=== PATIENT | female | born 1940 | race Caucasian/White ===

== ENCOUNTER 2025-06-04 15:01 | Inpatient (IN) | payer OTHER, MEDICARE, SELFPAY ==
[2025-06-04] VITALS (16 sets, daily range): BP systolic 85–133; BP diastolic 41–69; PULSE 66–101; RESP 12–36; TEMP 36.1–38.5; O2SAT 88–99; BMI 21.4; BMI 21.7
--- NOTE | 2025-06-04 15:20 | XR_ITS ---
Examination: AP chest single view Technique one AP portable upright chest single view Date and time: June 04 thousand 25, 1541 hours Comparison April 20, 2024 INDICATIONS: Sepsis protocol shortness of breath chest pain today. FINDINGS: Prominent CHF Moderate enlargement cardiac contour with vascular congestion and perihilar edema Consider superimposed pneumonia at the lung bases Stable position cardiac leads and dialysis catheter Prominent osteopenia IMPRESSION: Prominent CHF Suspicious for superimposed pneumonia at the lung bases
--- NOTE | 2025-06-04 15:37 | EDNOTE_ITS ---
<Statement entered by Shayy Orr MD - 06/05/25 15:00> I, Shayy Orr MD, have reviewed the history, exam, and assessment of the patient. I have evaluated the patient independently and agree with the plan of care documented by [ ]. All diagnostic studies were reviewed and discussed. I confirm the diagnosis as documented by the Resident. I was present during the Medical Decision Making for this patient. The patient's plan of care was created between myself and the Resident and consistent with our discussion of the patient's case. ED General RME/HPI General Chief complaint: Shortness of Breath/Dyspnea Stated complaint: SOB Time Seen by Provider: 06/04/25 15:09 Arrival date/time: 06/04/25 15:01 RME / HPI RME / HPI narrative: 85-year-old female with past medical history of ESRD on hemodialysis, DM2, CHF, hypertension, and asthma comes into the ED from [facility] due to complaints of shortness of breath for the past 4 days. Patient also spiked a fever at [facility] and she was transported to the ER via ambulance. On examination patient seems very dyspneic and was saturating around 96% on OxyMask. Patient was positive for COVID at [facility]. Otherwise she had no other complaints at this time. Denies any nausea, vomiting, abdominal pain, chest pain, or changes in bowel movement. Related Data Previous Rx's ?Medication ?Instructions ?Recorded benzonatate 100 mg capsule 100 mg PO TID PRN cough #10 caps 04/20/24 doxycycline monohydrate 100 mg 100 mg PO BID #10 caps 04/20/24 capsule Allergies Allergy/AdvReac Type Severity Reaction Status Date / Time pantoprazole (From Protonix) Allergy Verified 04/20/24 12:02 Sulfa (Sulfonamide Allergy Verified 04/20/24 12:02 Antibiotics) Review of Systems Review of Systems Systems Reviewed: All systems reviewed, normal except as documented Past Medical History Past Medical History Comments PMH COMMENT: PMH: ESRD on hemodialysis, DM2, CHF, hypertension, and asthma Social: denies smoking, drugs, alcohol Allergies: Sulfa and pantoprazole ED Exam Narrative Physical exam: Gen: A&O X 3 (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 External ears normal. No rhinorrhea. Moist mucous membranes. Neck: Supple, full range of motion, no observable masses, No meningeal sign. Lungs: moderate Respiratory distress, rales TARA. CV: RRR, no murmurs. Abdomen: Soft, nondistended, No rebound tenderness. MSK: No joint swelling, no redness, peripheral pulses presents, lumbar with no edema. Skin: No rashes, petechiae, lesions. Multiple ecchymosis throughout the body. Neuro: No focal neurological deficits appreciated, sensory and motor intact. Psych: Cooperative, appropriate mood and effect. Course Quality Measures none Orders Category Date Time Status Bedside COVID-19 Antigen Test NOW Care 06/04/25 15:20 Active Bedside Influenza A&B Antigen Test NOW Care 06/04/25 15:20 Completed COVID-19 Screening Questionnaire NOW Care 06/04/25 16:37 Active Community Resource Officer STAT Care 06/04/25 15:19 Active Continuous Pulse Oximetry STAT Care 06/04/25 15:19 Completed Decision to Admit X1 Care 06/04/25 16:37 Active EKG (ED ONLY) *Do not use* NOW Care 06/04/25 15:19 Completed In and Out Catheter X1PRN Care 06/04/25 15:19 Completed Insert IV NOW Care 06/04/25 15:19 Active NPO STAT Care 06/04/25 15:19 Active Strict Intake and Output Routine Care 06/04/25 15:19 Ordered EKG (ED Only) Stat Exams 06/04/25 15:19 Ordered XR chest 1V SEPSIS PROTOCOL Stat Exams 06/04/25 15:20 Completed Arterial Blood Gas Stat Lab 06/04/25 15:40 Completed B-Type Natriuretic Peptide Stat Lab 06/04/25 15:48 Completed Blood Culture (Lab) Stat Lab 06/04/25 15:40 Received CBC Stat Lab 06/04/25 15:48 Completed Comprehensive Metabolic Panel Stat Lab 06/04/25 15:48 Completed Drug Screen,Urine Stat Lab 06/04/25 16:10 Received LDH (Lactate Dehydrogenase) Stat Lab 06/04/25 15:48 Completed Lactate (Lactic Acid) Stat Lab 06/04/25 15:48 Completed Lipase Stat Lab 06/04/25 15:48 Completed Magnesium Stat Lab 06/04/25 15:48 Completed Partial Thromboplastin Time Stat Lab 06/04/25 15:48 Completed Phosphorous Stat Lab 06/04/25 15:48 Completed Procalcitonin Stat Lab 06/04/25 15:48 Completed Prothrombin Time with INR Stat Lab 06/04/25 15:48 Completed Troponin I Stat Lab 06/04/25 15:48 Completed Urinalysis Stat Lab 06/04/25 16:10 Completed Urine Culture Stat Lab 06/04/25 16:20 Received Acetaminophen Ivpb [Ofirmev Inj] Med 06/04/25 16:28 Discontinued 1,000 mg in 100 ml IV X1 Albuterol/Ipratr Rt Chinyere [Duoneb Rt Chinyere] Med 06/04/25 16:34 Discontinued 3 ml INH X1 ONE Azithromycin Inj [Zithromax Inj] 500 mg Med 06/04/25 16:28 Active Sodium Chloride 0.9% 250 ml [Ns] 250 ml IV X1 Magnesium Sulfate 2 GM Ivpb [Magnesium Sulfate Ivpb] Med 06/04/25 16:34 Active 2 gm in 50 ml IV X1 Piper/Tazo 3.375 gm Premix [Zosyn] Med 06/04/25 15:19 Discontinued 3.375 gm in 50 ml IV X1 BiPAP / CPAP NOW RT 06/04/25 16:27 Active Oxygen Delivery NOW RT 06/04/25 15:19 Active Vital Signs Vital signs: Vital Signs Temperature 100.2 F 06/04/25 15:02 Pulse Rate 66 06/04/25 15:02 Respiratory Rate 15 06/04/25 15:02 Blood Pressure 133/69 H 06/04/25 15:02 Pulse Oximetry (%) 96 06/04/25 15:02 Oxygen Delivery Method Oxy Mask 06/04/25 15:02 Oxygen Flow Rate 15 06/04/25 15:02 Discharge Plan Plan Patient Disposition: Admit Acute Care w/in Hospital Prescriptions/Referrals Prescriptions/Med Rec: No Action benzonatate 100 mg capsule 100 mg PO TID PRN (Reason: cough) Qty: 10 0RF doxycycline monohydrate 100 mg capsule 100 mg PO BID Qty: 10 0RF Referrals: No Primary/Family,Physician [Primary Care Provider] - In 1 week Problem List Clinical Impression: Community acquired pneumonia, COVID-19, Influenza, Hypoxia Patient/Caregiver Discharge Instructions Print Language: [place] Stand Alone Forms: Agnieszka Award Info., Patient Portal Info Letter MDM Narrative MDM hospital course: Patient was seen and assessed by myself upon arrival in the ambulance bay and then the patient's room. Sepsis alert was called while patient as well as on arrival. 1540: Diagnostic lab and imaging were ordered. Along with IV antibiotics (Zosyn). Refrain from ordering IV fluids given that patient appeared to be fluid overloaded and on bedside ultrasound inferior vena cava was noncompressible. 1627: Ordered BiPAP as patient was more dyspneic. And other azithromycin as well with DuoNebs and Tylenol for fever. 1637: Called IM team for admission, will look at the patient for admission. Case disclosed with Attending Dr. Kirby Champagne PGY2 Disclaimer: Even though this this note was dictated by speech recognition and even though it was carefully revised there may still be minor errors in medical typist due to voice recognition software. Medication Administration(s) Medication Administration History Azithromycin 500 mg/ Sodium (Chloride) 250 mls @ 250 mls/hr IV X1 ONE Stop: 06/04/25 17:27 Magnesium Sulfate (Magnesium Sulfate Ivpb) 2 gm in 50 mls @ 25 mls/hr IV X1 ONE Stop: 06/04/25 18:33 Discontinued Medications Albuterol/Ipratropium (Albuterol/Ipratropium (Duoneb) Rt Chinyere 3 Ml Nebu) 3 ml INH X1 ONE Stop: 06/04/25 16:35 Last Admin: 06/04/25 17:00 Dose: 3 ml Documented By: MINA Piperacillin/Tazobactam/Dextrose (Zosyn) 3.375 gm in 50 mls @ 100 mls/hr IV X1 ONE Stop: 06/04/25 15:48 Last Admin: 06/04/25 16:14 Dose: 100 mls/hr Documented By: TM Acetaminophen (Ofirmev Inj) 1,000 mg in 100 mls @ 250 mls/hr IV X1 ONE Stop: 06/04/25 16:51
[2025-06-04 15:44] LABS: Base Excess 5 (-3-3); HCO3 31 mEq/L (20-26); Inspired O2, VO2 Liters 8 L/min; O2 Saturation 100 % (91-98); PCO2 52 mmHg (32.0-48.0); PO2 148 mmHg (83-108); pH, Arterial 7.38 (7.35-7.45)
[2025-06-04 15:45] LABS: Puncture Site Right Radial
[2025-06-04 15:46] LABS: Allen Test Performed/OK
[2025-06-04 16:02] LABS: Lactate (Lactic Acid) 1.4 mMol/L (0.4-2.0)
[2025-06-04] MEDS: PIPER/TAZO 3.375 GM PREMIX 3.375 GM/50 ML BAG IV (16:14)
[2025-06-04 16:27] LABS: Basophils # (Auto) 0.0 Thou/mm3 (0.0-0.2); Basophils % (Auto) 1 % (0-2.5); Eosinophils # (Auto) 0.0 Thou/mm3 (0.0-0.5); Eosinophils % (Auto) 0 % (0-10); Hematocrit 34.4 % (36.0-46.0); Hemoglobin 10.6 g/dL (12.0-16.0); INR 1.2 (0.9-1.3); Immature Granulocytes Auto 0.02 Thou/mm3 (0.00-0.00); Lymphocytes # (Auto) 0.4 Thou/mm3 (1.0-4.8); Lymphocytes % (Auto) 8 % (10-50); Mean Corpuscular HGB Conc 30.8 g/dl (31.0-37.0); Mean Corpuscular Hemoglobin 33.7 pg (25.0-35.0); Mean Corpuscular Volume 109 fL (80-100); Monocytes # (Auto) 0.4 Thou/mm3 (0.0-0.8); Monocytes % (Auto) 8 % (0-12); Neutrophils # (Auto) 4.7 Thou/mm3 (1.8-7.7); Neutrophils % (Auto) 84 % (37-80); Nucleated Red Blood Cell # 0.00 Thou/mm3 (0.00-0.00); Nucleated Red Blood Cell % 0 /100 WBC (0); Partial Thromboplastin Time 32.4 Seconds (22.0-36.0); Platelet Count 113 Thou/mm3 (140-440); Prothrombin Time 12.5 Seconds (9.0-12.2); RDW Standard Deviation 66.0 fL (36.4-46.3); Red Blood Count 3.15 Miln/mm3 (4.00-5.20); White Blood Count 5.6 Thou/mm3 (3.6-11.0)
[2025-06-04 16:40] LABS: Alanine Aminotransferase 20 U/L (10-49); Albumin, Serum 3.6 gm/dL (3.4-4.8); Albumin/Globulin Ratio 1.7 (1.2-2.2); Alkaline Phosphatase 95 U/L (46-116); Anion Gap 10 (7-16); Aspartate Amino Transferase 39 U/L (0-34); BUN/Creatinine Ratio 11 Ratio (12-20); Bilirubin,Total 0.7 mg/dL (0.3-1.2); Blood Urea Nitrogen 42 mg/dL (9-23); Calcium 9.4 mg/dL (8.3-10.6); Calcium (Corrected) 9.7 mg/dL (8.5-10.1); Carbon Dioxide 30.1 mMol/L (20.0-31.0); Chloride 97 mMol/L (98-107); Creatinine (Component) 4.0 mg/dL (0.6-1.3); Estimated Creatinine Clearance 7.5 mL/min (>60); Globulin 2.1 gm/dL (2.3-3.5); Glucose 143 mg/dL (74-106); LDH (Lactate Dehydrogenase) 222 U/L (120-246); Lipase 39 U/L (12-53); Magnesium 1.8 mg/dL (1.6-2.6); Osmolality,Calculated 286 (275-295); Phosphorous 3.8 mg/dL (2.4-5.1); Potassium 5.2 mMol/L (3.4-5.1); Procalcitonin 1.29 ng/ml (0.0-0.49); Sodium 137 mMol/L (136-145); Total Protein 5.7 gm/dL (5.7-8.2); eGFR 11 See Note
[2025-06-04 16:51] LABS: Collection Type, Urine Clean Catch
[2025-06-04] MEDS: ALBUTEROL/IPRATROPIUM (Duoneb) RT SOL 3 ML NEBU INH (17:00)
[2025-06-04 17:01] LABS: Troponin I 0.293 ng/mL (0.0-0.045)
[2025-06-04 17:04] LABS: Amorphous Crystals,Urine Present (Absent); Bacteria,Urine 4+; Bilirubin,Urine Negative (Negative); Blood,Urine Negative (Negative); Color,Urine Yellow (Lt Yel-Yel); Glucose, Urine Negative (Negative); Hyaline Casts,Urine < 1 /hpf (0-1); Ketones,Urine Negative (Negative); Leukocyte Esterase,Urine Positive (Negative); Nitrite,Urine Negative (Negative); PH,Urine 5.5 (5.0-7.0); Protein,Urine 2+ (Neg - Trace); RBC,Urine 3 /hpf (0-3); Specific Gravity,Urine 1.017 (1.001-1.035); Squamous Epithelial Cell,Urine 15 /hpf (0-5); Urobilinogen,Urine Negative mg/dL (0.0-1.0); WBC,Urine 5 /hpf (0-5)
[2025-06-04 17:06] LABS: Clarity,Urine Hazy (Clear/Hazy)
[2025-06-04 17:21] LABS: B-Type Natriuretic Peptide > 3280 pg/mL (0-100)
[2025-06-04 17:41] LABS: Amphetamine/Methamp Scrn,U Negative (Negative); Barbiturate Screen,Urine Negative (Negative); Benzodiazepines Screen,Urine Negative (Negative); Benzoylecgonine Screen, Ur Negative (Negative); Fentanyl Screen,Urine Negative (Negative); Opiate Screen,Urine Negative (Negative); THC Screen,Urine Negative (Negative)
[2025-06-04] MEDS: ACETAMINOPHEN IVPB 1,000 MG/100 ML VIAL 250 MG IV (17:41)
[2025-06-04] MEDS: Magnesium Sulfate 2 GM Ivpb 2 GM/50 ML BAG IV (17:44)
[2025-06-04] MEDS: AZITHROMYCIN INJ 500 MG in SODIUM CHLORIDE 0.9% 250 ML 250 ML 250 MG IV (17:46)
[2025-06-04] MEDS: HEPARIN SOD INJ 5000 UNIT/ML VIAL SC (18:06)
--- NOTE | 2025-06-04 18:50 | PC.NURSE ---
Patient admitted to Telemetry room 263 from ED via [facility]. Patient is alert and oriented. Settled into bed with staff assist. youth nutritional monitor established, paced rhythm on the monitor. Full assessment completed see documentation. Patient is short of breath but no distress. Is on a Bipap at present and is tolerating well. Call brush within reach and bed alarm for safety. Will monitor further.
--- NOTE | 2025-06-04 19:02 | PC.NURSE ---
pt was transported to floor connected to tele and bi-pap, by this RN, jeyson johnson, and rt, without incident. once on floor care was transfered to floor staff.
--- NOTE | 2025-06-04 19:15 | XR_ITS ---
Examination: AP chest single view Technique one AP portable semiupright chest single view Date and time: June 04 70,025, 1939 hours Comparison June 04, 2025 1541 hours INDICATIONS: Abnormal breath sounds on auscultation today. FINDINGS: Prominent CHF Enlarged cardiac contour with pulmonary vascular congestion and perihilar edema Cardiac leads dialysis catheter satisfactory position IMPRESSION: Prominent CHF Consider superimposed pneumonia at the lung bases
--- NOTE | 2025-06-04 19:39 | ESHP_ITS ---
<Statement entered by Suraj Bergman MD - 06/04/25 22:41> Patient was examined and case was reviewed with team including attending physician. Note reviewed, I agree with most of its contents and agree with the patient's care as documented by Dr. Zhou 85 y/o female with PMHx of Hypertension, CAD s/p CABG, ESRD on HD, DM who was bought to the ED from [facility] due to shortness of breath with productive phlegm. Onset of symptoms seems to be around 4 days with some fevers. COVID test done at the facility found to be positive, however here negative, PCR ordered. Patient also tested positive for Influenza A + B. Will start patient on Abx therapy and tamiflu for Sepsis secondary to Influenza PNA with superimposed bacterial PNA. Additionally patient missed HD session and is fluid overloaded on examination. Will start patient on IV diuresis, Nephrology production editor was consulted for continued Hemodialysis schedule. Home meds resumed as tolerated. Case discussed with my attending Dr. Jone Bergman MD PGY-2 Documentation for date of: 06/04/25 HPI History of Present Illness History of present illness: Ms. Baeza is 85 y/o female with PMH of CHF, insulin-dependent DM, CAD s/p CABG, ESRD on HD MWF, hypertension and asthma who presented to the ED on 06/04 for progressive shortness of breath and productive cough x4 days. Per ED note, she had a fever and was COVID positive prior to coming to the ED by ambulance. She denies hemoptysis, chest pain/pressure, headache, acute changes in vision, leg swelling, N/V, abdominal pain, or changes in bowel movements. She missed her dialysis today. Patient was hospitalized for pneumonia about 1 month ago at [facility]. Patient did not know which abx she was given. She has been staying at [facility] since then. Before that hospitalization she was staying with her son, Karthik. She has an ED visit on record at [facility] 04/20/24 for productive cough aand was sent home with abx coverage for CAP with Augmentin and Doxycycline. ED course: Dyspneic, moderate respiratory distress, rales b/l. Febrile T max 101.3. Tachypneic to 30s. Started OxyMask 15L, spO2 96%. Bedside IVC was concompressible. Sepsis alert was called. IVF NOT given as patient has hx of CHF, appeared to be fluid overloaded (IVC non-collapsible, elevated BNP, and imaging findings of vascular congestion and perihilar edema). Labs significant for macrocytic anemia (hgb 10.6, HCT 34.4, MCV 109), thrombocytopenia (plt 113). NO leukocytosis. PT 12.5 high. INR and PTT WNL. ABG pH 7.38 (CO2 52, O2 148, bicarb 31). Potassium 5.2, Cl 97, BUN 42, Cr 4, AST 39., Troponin 0.293, BNP >3280, procal high 1.29. Lactic acid WNL 1.4. UA 2+ protein, 15 squamous epithelial cells, amorphous crystals, 4+ bacteria, + LE, negative nitrite. UDS negative. Bedside influenza A and B positive. Bedside COVID negative. CXR x2 showed moderate enlargement cardiac contour with vascular congestion and perihilar edema, superimposed PNA at b/l lung bases, prominent osteopenia. C/W CHF, PNA Started BiPAP, given Mag sulfate, Zosyn x1, Azitrhomycin, DuoNebs, and Tylenol. PMHx: CHF, insulin-dependent DM, CAD s/p CABG, ESRD on HD MWF, hypertension, asthma Allergies: Sulfa, pantoprazole Home meds: Midodrine 5 mg TID (hold if sBP > 100) Atorvastatin 20 mg QHS Sevelamir 800 mg TID (with meals) Mirtazepine 15 mg QHS (for sleep) Lasiz 20 mg QD Renal vitamin QD Pramipexole 0.25 mg QHS (for RLS) Vitamin D 1000U QD ASA 81 mg QD Insulin Aspart bolus w/ meals PRN albuterol nebulizer PRN Tylenol PRN Doc-senna SgHx: CABG, Cholecystectomy (at least 5 years ago), tonsillectomy (as a child), Left hip replacement SHx: Denies smoking, EtOH, or recreational drug use current or hx. [facility] (for the past ~1 month), used to live with her sonKarthik Patient has Physician Orders for Life-Sustaining Treatment on file. States DNR. When discussing code status today, patient reports that she is ok with CPR, does not want intubation. Code status documented/ordered as limited code: ok to do CPR, DNI. Tried to call sonKarthik ([phone]). Did not get a response. Will try again tomorrow. Review of Systems Review of Systems Narrative Review of Systems: 14 point ROS negative other than HPI Exam Vital Signs Temp Pulse Resp BP Pulse Ox O2 Del Method O2 Flow Rate 98.8 F 78 12 110/41 L 98 BiPAP 5 06/04/25 18:03 06/04/25 19:23 06/04/25 19:23 06/04/25 18:03 06/04/25 19:23 06/04/25 18:03 06/04/25 17:02 FiO2 40 06/04/25 17:57 Narrative Exam General: Elderly female, appears stated age, no acute distress Eye: PERRL, EOMI, normal conjunctiva, no scleral icterus HENT: Normocephalic, atraumatic, normal hearing, moist oral mucosa Neck: Supple, non-tender, no JVD, no lymphadenopathy Lungs: B/L rales, on OxyMask, symmetric chest rise, no use of accessory muscles Heart: Normal S1 and S2, no S3 or S4 appreciated. Normal rate and regular rhythm, no murmurs, rubs gallops, or edema. Peripheral pulses intact bilaterally, capillary refill brisk distally. No peripheral edema noted. Abdomen: Soft, non-tender, non-distended, normal bowel sounds. No guarding or rebound tenderness. Musculoskeletal: Normal range of motion and strength, no tenderness or swelling Skin: Skin is warm, dry, no rashes or lesions. Neurologic: Alert, awake and oriented x3. CN II-XII grossly intact. No focal neuro deficits. Psychiatric: Cooperative, appropriate mood and affect Results: Labs 06/05/25 05:37 06/05/25 05:37 Labs: Short CBC 06/04/25 Range/Units 15:48 WBC 5.6 (3.6-11.0) Thou/mm3 Hgb 10.6 L (12.0-16.0) g/dL Hct 34.4 L (36.0-46.0) % Plt Count 113 L (140-440) Thou/mm3 BMP 06/04/25 15:48 Sodium 137 Potassium 5.2 H Chloride 97 L Carbon Dioxide 30.1 BUN 42 H Creatinine 4.0 H Glucose 143 H Calcium 9.4 Cardiac Enzymes 06/04/25 Range/Units 15:48 Troponin I 0.293 H* (0.0-0.045) ng/mL Liver Function 06/04/25 Range/Units 15:48 Total Bilirubin 0.7 (0.3-1.2) mg/dL AST 39 H (0-34) U/L ALT 20 (10-49) U/L Alkaline Phosphatase 95 (46-116) U/L Albumin 3.6 (3.4-4.8) gm/dL Urine 06/04/25 Range/Units 16:10 Urine Color Yellow (Lt Yel-Yel) Urine Clarity Hazy (Clear/Hazy) Urine pH 5.5 (5.0-7.0) Ur Specific Carey 1.017 (1.001-1.035) Urine Protein 2+ A (Neg - Trace) Urine Glucose (UA) Negative (Negative) ABG Interpretation ABG results: 06/04/25 15:40 ABG pH 7.38 ABG pCO2 52 H ABG pO2 148 H ABG HCO3 31 H ABG O2 Saturation 100 H ABG Base Excess 5 H Quality Measures Quality Measures none Advance care planning discussed with:: patient Medications Home Medications and Allergies Home Medications ?Medication ?Instructions ?Recorded ?Confirmed ?Type acetaminophen 325 mg tablet 650 mg PO Q6H PRN pain (sc iglesia 06/04/25 06/04/25 History (Tylenol) score 4-6) albuterol sulfate 2.5 mg/3 mL 2.5 mg inhalation Q6H KS N 06/04/25 06/04/25 History (0.083 %) solution for nebulization shortness of breat h or wheezing aspirin 81 mg capsule 81 mg PO QDAY 06/04/2506/04 History atorvastatin 20 mg tablet 20 mg PO HS 06/04/25/03/31 5 History bisacodyl 10 mg rectal suppository 10 mg KS QDAY PRN c onstipation 06/04/25 06/04/25 History (Dulcolax (bisacodyl)) cholecalciferol (vitamin D3) 25 1,000 unit PO QDAY 04/2306/04/25 History mcg (1,000 unit) capsule diphenhydramine 25 1 tab PO HS PRN insomnia 04/2306/04/25 History mg-acetaminophen 500 mg tablet (Pain and Sleep) furosemide 20 mg tablet 20 mg PO DAILY 06/04/2504/23 History magnesium hydroxide 400 mg/5 mL 30 ml PO Q72H PRN cons tipation 06/04/25 06/04/25 History oral suspension (Milk of Magnesia) midodrine 5 mg tablet 5 mg PO TID 06/04/25 5 History mirtazapine 15 mg tablet (Remeron) 15 mg PO HS 5 06/04/25 History polyethylene glycol 3350 17 gram 17 g PO QDAY 06/04/25 06/04/25 History oral powder packet (Miralax) pramipexole 0.25 mg tablet 0.25 mg PO HS 06/04/2504/23 History sevelamer carbonate 800 mg tablet 800 mg PO TIDWMEAL 0 06/04/25 06/04/25 History sodium phosphates 19 gram-7 118 ml KS Q72H PRN constip ation 06/04/25 06/04/25 History gram/118 mL enema vitamin B complex-vitamin C-folic 1 tab PO QDAY 06/04/25 History acid 0.8 mg tablet Allergies Allergy/AdvReac Type Severity Reaction Status Date / Time pantoprazole (From Protonix) Allergy Verified 04/20/24 12:02 Sulfa (Sulfonamide Allergy Verified 04/20/24 12:02 Antibiotics) Visit Medications Acetaminophen (Acetaminophen 325 Mg Tablet) 650 mg PO Q6H PRN PRN Reason: Fever >101.5 Stop: 07/04/25 17:30 Acetaminophen (Acetaminophen 325 Mg Tablet) 650 mg PO Q6H PRN PRN Reason: PAIN SCALE 1-3 (mild Stop: 07/04/25 17:30 Hydrocodone Bitart/Acetaminophen (Hydrocodone/Apap 5/325 Tablet) 1 tab PO Q4HR PRN PRN Reason: PAIN SCALE 4-6 (Moderate Stop: 06/09/25 17:30 Dextrose (Dextrose 50%-Water Inj 50 Ml Syringe) 25 ml IV Q15MIN PRN PRN Reason: BG 50-70 responsive npo pt Stop: 07/04/25 19:36 Dextrose (Dextrose 50%-Water Inj 50 Ml Syringe) 50 ml IV Q15MIN PRN PRN Reason: BG <50 OR BG <70 & pt unresponsive Stop: 07/04/25 19:36 Docusate Sodium (Docusate Sod 100 Mg Capsule) 100 mg PO QDAY PRN; Protocol PRN Reason: CONSTIPATION Stop: 07/04/25 17:30 Glucagon (Glucagon Inj 1 Mg Vial) 1 mg IM Q15MIN PRN PRN Reason: BG <70, and no IV access Heparin Sodium (Porcine) (Heparin Sod Inj 5000 Unit/Ml Vial) 5,000 unit SC Q12HR GILLIAN Stop: 06/18/25 17:44 Last Admin: 06/04/25 18:06 Dose: 5,000 unit Ceftriaxone Sodium/Dextrose (Rocephin/D5w 1gm Iv Premix) 1 gm in 50 mls @ 100 mls/hr IV QDAY GILLIAN Stop: 06/11/25 18:07 Azithromycin 500 mg/ Sodium (Chloride) 250 mls @ 250 mls/hr IV QDAY@2100 [facility] Stop: 06/11/25 20:59 Insulin Human Lispro (Insulin Lispro (Admelog) 1 Unit/0.01 Ml Unit) 0 unit SC Q6HR GILLIAN; Protocol Stop: 07/05/25 00:00 Ondansetron HCl (Ondansetron Inj 2 Mg/Ml Inj 2 Ml) 4 mg IVP Q6H PRN; Protocol PRN Reason: NAUSEA OR VOMITING Stop: 07/04/25 17:30 Oseltamivir Phosphate (Oseltamivir 6 Mg/Ml) 30 mg PO DAILY GILLIAN Stop: 06/11/25 18:44 Discontinued Medications Albuterol/Ipratropium (Albuterol/Ipratropium (Duoneb) Rt Chinyere 3 Ml Nebu) 3 ml INH X1 ONE Stop: 06/04/25 16:35 Last Admin: 06/04/25 17:00 Dose: 3 ml Dexamethasone Sodium Phosphate (Dexamethasone Sod Phos Inj 10 Mg/Ml Vial) 6 mg IVP DAILY GILLIAN Stop: 07/04/25 18:14 Dexamethasone Sodium Phosphate (Dexamethasone Sod Phos Inj 10 Mg/Ml Vial) 6 mg IVP DAILY [facility] Stop: 06/14/25 18:29 Piperacillin/Tazobactam/Dextrose (Zosyn) 3.375 gm in 50 mls @ 100 mls/hr IV X1 ONE Stop: 06/04/25 15:48 Last Infusion: 06/04/25 16:44 Dose: Infused Acetaminophen (Ofirmev Inj) 1,000 mg in 100 mls @ 250 mls/hr IV X1 ONE Stop: 06/04/25 16:51 Last Infusion: 06/04/25 18:06 Dose: Infused Azithromycin 500 mg/ Sodium (Chloride) 250 mls @ 250 mls/hr IV X1 ONE Stop: 06/04/25 17:27 Last Admin: 06/04/25 17:46 Dose: 250 mls/hr Magnesium Sulfate (Magnesium Sulfate Ivpb) 2 gm in 50 mls @ 25 mls/hr IV X1 ONE Stop: 06/04/25 18:33 Last Admin: 06/04/25 17:44 Dose: 25 mls/hr Piperacillin/Tazobactam/Dextrose (Zosyn) 3.375 gm in 50 mls @ 12.5 mls/hr IV Q12HR GILLIAN Stop: 06/11/25 21:59 Azithromycin 500 mg/ Sodium (Chloride) 250 mls @ 250 mls/hr IV QDAY@2100 [facility] Stop: 06/11/25 20:59 Remdesivir 100 mg/ Sodium (Chloride) 100 mls @ 100 mls/hr IV Q24H NR; Protocol Stop: 06/08/25 14:59 Assessment & Plan Plan # Acute hypoxic respiratory failure Initial sx of progressive shortness of breath, hypoxic, started on OxyMask, now on BiPAP Most likely 2/2 acute CHF exacerbation vs PNA Plan: - BiPAP - Lasix as below, abx as below #Sepsis Temp > 100.4 (Tmax 101.3), HR > 90 (max 93), RR > 20 (max 35) + suspected source of infection (PNA, UTI) Fluids NOT given as pt appeared to be fluid overloaded (IVC non-collapsible, elevated BNP, and imaging findings of vascular congestion and perihilar edema), has ESRD and missed HD 06/04 Plan: - Tylenol PRN for fever - Pending blood cx x2 - See below for abx #Community-acquired pneumonia Patient was COVID positive at [facility], bedside COVID negative Influenza A and B positive PNA at b/l lung bases seen on CXR Given DuoNeb, Zosyn x1, Azitrhomycin x1 in ED Plan: - Azitrhromycin 500 mg IV QD x 3 days (06/04 - 06/06), Ceftriaxone 1 g IV QD x 5 days (06/04 - 06/08), Tamiflu 30 mg QD x 5 days (06/04 - 06/08) - Pending COVID PCR #Acute CHF exacerbation Vascular congestion and peihilar edema seen on CXR BNP >3280 Plan: - Lasix 40 mg IV QD - Pending TTE - Strict I&Os - Daily weights - Replete electrolytes (keep Mg >2, K >4) #ESRD on HD MWF Missed dialysis 06/04 On admit: BUN 42, Cr 4 [employer]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 Dumont Plan: - Continued home Sevelamer 80 mg TID w/ meals - Consulted nephrology production editor #CAD s/p CABG Denies chest pain/pressure Plan: - Continue home ASA 81 mg daily, atorvastatin 20 mg QHS - Pending lipid panel #Troponinemia Denies chest pain/pressure Trop 0.293 Most likely 2/2 sepsis Plan: - Trend troponin #UTI Denies urinary sx Plan: - Ceftriaxone 1 g IV QD x 5 days (06/04 - 06/08) - Pending urine cx #Insulin-dependent DM Initial BG 143 Plan: - SSI - Pending A1C #Restless leg syndrome Plan: - Held home pramipexole i/s/o CHF / fluid overload Dispo: PNA and CHF tx Diet: Cardiac Bowel Reg: Docusate VTE ppx: Heparin 5000U subQ BID, GI ppx: none Code status: ok to do CPR, DNI Plan discussed with Dr. Winter and Dr. Jone Zhou MD PGY1 Attending Provider Attestation/Addendum I have examined the patient, reviewed labs and imaging findings, discussed the case with the resident(s), and reviewed entered orders. I agree with the plan of care as outlined in this note, with these additional summaries/recommendations: After examination of the patient and review of the clinical data, I feel that this patient needs admission to the hospital for further treatment and evaluation. Patient is a 85-year-old female with a medical history of ESRD on HD, diabetes mellitus type 2, CHF, asthma, hypotension, hyperlipidemia, and insomnia presents to [facility] emergency department on 06/04/2025 with chief complaint of progressively worsening shortness of breath over the last 4 days. Patient seen at bedside. Patient diagnosed with acute hypoxic respiratory failure and sepsis which is multifactorial in nature. Patient has COVID pneumonitis, start remdesivir and Decadron. Influenza A and B+. Suspected to have community-acquired pneumonia as well from most likely gram-negative rods. Start IV antibiotics. Continue supplemental oxygen and wean as tolerated. Patient diagnosed with sepsis with endorgan damage elevated troponin. She did not receive the full 30 cc/kg given her history of CHF and ESRD. Chest x-ray shows moderate vascular congestion with perihilar edema. If respiratory status worsens we may need to try a trial of BiPAP. ABG reviewed. Procalcitonin elevated. Consult nephrology for ESRD for inpatient hemodialysis. Avoid nephrotoxic agents and renally dose medications. Patient is DNR. Prognosis is guarded at this time. Troponins elevated and we will trend every 8 hours until downtrend. Most likely secondary to demand ischemia in the setting of sepsis and hypoxic respiratory failure. Resume home medications. Patient has history of hypotension and appears to take midodrine at times and will institute if needed. Patient updated on the plan and agreement. Please see residents note for additional details and management. Dr. Jone MD
[2025-06-04] MEDS: cefTRIAXone/D5w 1gm IV premix 1 GM/50 ML BAG IV (19:57)
[2025-06-04] MEDS: ASPIRIN EC 81 MG TABEC PO (21:26)
[2025-06-04] MEDS: FUROSEMIDE INJ 10 MG/ML 4ML VIAL 40 MG IVP (21:26)
[2025-06-04] MEDS: MIDODRINE 5 MG TABLET PO (21:30)
--- NOTE | 2025-06-04 23:23 | PD.RESEVENT ---
Documentation for date of: 06/04/25 Event Note Event Note: Rapid response was called at 19:00 due to concern for hypotension and respiratory distress. The initial blood pressure reading from the in room automated monitor was reportedly low (approximately 79/58), raising concern. However, upon rechecking the blood pressure using a more accurate external monitor, the values were within normal limits. The patient remained stable throughout the episode, and no acute intervention was required. It was determined that the initial low reading was likely due to inaccurate measurement from the less reliable bedside monitor. Chest x-ray was ordered to further assess for any underlying respiratory pathology. Patient did not display signs of COVID-19, and no additional concerns were noted during reassessment. Assessment: False/ inacurrate hypotension reading on initial monitor; patient stable and denies any symptoms. Plan: ? Continue to monitor vitals closely. ? Chest x-ray pending. ? No further intervention required at this time. ----- Plan discussed with attending physician Dr. Marimar Lopez MD PGY-1 Internal Medicine
[2025-06-05] VITALS (29 sets, daily range): BP systolic 86–137; BP diastolic 42–84; PULSE 60–106; RESP 14–27; TEMP 36.3–37.2; O2SAT 91–99; BMI 21.6
[2025-06-05] MEDS: MIDODRINE 5 MG TABLET PO ×3 (05:41→21:43)
[2025-06-05 06:22] LABS: Basophils # (Auto) 0.0 Thou/mm3 (0.0-0.2); Basophils % (Auto) 1 % (0-2.5); Eosinophils # (Auto) 0.0 Thou/mm3 (0.0-0.5); Eosinophils % (Auto) 0 % (0-10); Hematocrit 33.6 % (36.0-46.0); Hemoglobin 10.1 g/dL (12.0-16.0); Immature Granulocytes Auto 0.02 Thou/mm3 (0.00-0.00); Lymphocytes # (Auto) 0.6 Thou/mm3 (1.0-4.8); Lymphocytes % (Auto) 16 % (10-50); Mean Corpuscular HGB Conc 30.1 g/dl (31.0-37.0); Mean Corpuscular Hemoglobin 33.0 pg (25.0-35.0); Mean Corpuscular Volume 110 fL (80-100); Monocytes # (Auto) 0.4 Thou/mm3 (0.0-0.8); Monocytes % (Auto) 12 % (0-12); Neutrophils # (Auto) 2.7 Thou/mm3 (1.8-7.7); Neutrophils % (Auto) 71 % (37-80); Nucleated Red Blood Cell # 0.00 Thou/mm3 (0.00-0.00); Nucleated Red Blood Cell % 0 /100 WBC (0); Platelet Count 98 Thou/mm3 (140-440); RDW Standard Deviation 66.5 fL (36.4-46.3); Red Blood Count 3.06 Miln/mm3 (4.00-5.20); White Blood Count 3.8 Thou/mm3 (3.6-11.0)
[2025-06-05 06:57] LABS: Alanine Aminotransferase 18 U/L (10-49); Albumin, Serum 3.2 gm/dL (3.4-4.8); Albumin/Globulin Ratio 1.6 (1.2-2.2); Alkaline Phosphatase 83 U/L (46-116); Anion Gap 10 (7-16); Aspartate Amino Transferase 39 U/L (0-34); BUN/Creatinine Ratio 11 Ratio (12-20); Bilirubin,Total 0.5 mg/dL (0.3-1.2); Blood Urea Nitrogen 47 mg/dL (9-23); Calcium 9.3 mg/dL (8.3-10.6); Calcium (Corrected) 9.9 mg/dL (8.5-10.1); Carbon Dioxide 29.0 mMol/L (20.0-31.0); Cardiac Risk Estimate 1.7 RATIO (3.7-5.6); Chloride 97 mMol/L (98-107); Cholesterol 69 mg/dL (132-200); Creatinine (Component) 4.4 mg/dL (0.6-1.3); Estimated Creatinine Clearance 6.5 mL/min (>60); Globulin 2.0 gm/dL (2.3-3.5); Glucose 93 mg/dL (74-106); HDL Cholesterol 41 mg/dL (40-60); LDL Cholesterol,Calculated 20 mg/dL (0-130); Magnesium 2.3 mg/dL (1.6-2.6); Osmolality,Calculated 284 (275-295); Phosphorous 5.5 mg/dL (2.4-5.1); Potassium 5.4 mMol/L (3.4-5.1); Sodium 136 mMol/L (136-145); Total Protein 5.2 gm/dL (5.7-8.2); Triglycerides 42 mg/dL (30-150); eGFR 9 See Note
[2025-06-05 07:03] LABS: Troponin I 0.241 ng/mL (0.0-0.045)
[2025-06-05 07:05] LABS: Glucose Estimated Average 151 mg/dL (80-131); Hemoglobin A1C 6.9 % Hgb (4.8-6.0)
--- NOTE | 2025-06-05 07:51 | ESPR_ITS ---
<Statement entered by Suraj Bergman MD - 06/05/25 20:35> Patient was examined and case was reviewed with team including attending physician. Note reviewed, I agree with most of its contents and agree with the patient's care as documented by Dr. Zhou Patient seen today at the bedside found awake, alert. Vital signs stable at this time. Patient continues to have shortness of breath however improving compared to yesterday. Will continue with current abx at this time for UTI/PNA as well as tamiflu for influenza. Case discussed with my attending Dr. Jone Bergman MD PGY-2 Documentation for date of: 06/05/25 Subjective Subjective Interval history: Rapid response called 06/04 19:00 due to concern for hypotension and respiratory distress. The initial blood pressure reading from the in room automated monitor was reportedly low (approximately 79/58). Repeat BP on more accurate external monitor was WNL. Patient remained stable, no acute intervention was required. Most likely false/inaccurate hypotension reading on initial monitor. Patient evaluated at bedside. On 4-5L O2, appropriate spO2. She reports continued shortness of breath, though better than yesterday. Continues to deny chest pain/pressure, headache, burning with urination. Patient is on HD 2/2 ESRD but continues to make urine. She wears adult diapers and changes them BID, but as patient is on strict I&Os, ordered pure wick. Continue to call sonKarthik, no response. Of note, patient has a hx of recurrent UTIs, reports 3 UTI within the past year. She does not know what abx she has taken for UTI or previous PNA. Patient has Physician Orders for Life-Sustaining Treatment on file. States DNR. When discussing code status today, patient reports that wants to honor that document. Code status DNR/DNI. Exam Vital Signs Temp Pulse Resp BP Pulse Ox O2 Del Method O2 Flow Rate 97.7 F 78 23 H 107/54 L 92 L Nasal Cannula 4 06/05/25 04:00 06/05/25 05:41 06/05/25 04:00 06/05/25 05:41 06/05/25 04:00 06/05/25 04:00 06/05/25 04:00 FiO2 40 06/04/25 19:15 Narrative Exam General: Elderly female, appears stated age, no acute distress Eye: PERRL, EOMI, normal conjunctiva, no scleral icterus HENT: Normocephalic, atraumatic, normal hearing, moist oral mucosa Neck: Supple, non-tender, no JVD, no lymphadenopathy Lungs: Tachycardic in 20s (improved from 30s yesterday), spO2 93% on 5L NC, no crackles appreciated, symmetric chest rise, no use of accessory muscles Heart: Normal S1 and S2, no S3 or S4 appreciated. Normal rate and regular rhythm, no murmurs, rubs gallops, or edema. Peripheral pulses intact bilaterally, capillary refill brisk distally. 1+ b/l LE edema noted. Fistula of left arm. Abdomen: Soft, non-tender, non-distended, normal bowel sounds. No guarding or rebound tenderness. Musculoskeletal: Normal range of motion and strength, no tenderness or swelling Skin: Skin is warm, dry, no rashes or lesions. Neurologic: Alert, awake and oriented x3. CN II-XII grossly intact. No focal neuro deficits. Psychiatric: Cooperative, appropriate mood and affect Objective Labs 06/06/25 05:09 06/06/25 05:09 Labs: Laboratory Results - last 24 hr 06/04/25 06/04/25 06/04/25 15:40 15:48 16:10 WBC 5.6 RBC 3.15 L Hgb 10.6 L Hct 34.4 L MCV 109 H MCH 33.7 MCHC 30.8 L RDW Std Deviation 66.0 H Plt Count 113 L Neut % (Auto) 84 H Lymph % (Auto) 8 L [place] % (Auto) 8 Eos % (Auto) 0 Baso % (Auto) 1 Neut # (Auto) 4.7 Lymph # (Auto) 0.4 L [place] # (Auto) 0.4 Eos # (Auto) 0.0 Baso # (Auto) 0.0 Immature Gran # (Auto) 0.02 H Absolute Nucleated RBC 0.00 Immature Gran % 0 Nucleated RBC % 0 PT 12.5 H INR 1.2 APTT 32.4 Puncture Site Right Radial ABG pH 7.38 ABG pCO2 52 H ABG pO2 148 H ABG HCO3 31 H ABG O2 Saturation 100 H ABG Base Excess 5 H Oxygen Liter Flow 8 Sodium 137 Potassium 5.2 H Chloride 97 L Carbon Dioxide 30.1 Anion Gap 10 BUN 42 H Creatinine 4.0 H Estim Creat Clear Calc 7.5 L eGFR 11 L* BUN/Creatinine Ratio 11 L Glucose [address] Glu mg/dL Hemoglobin A1c Calculated Osmolality 286 Lactic Acid 1.4 Calcium 9.4 Corrected Calcium 9.7 Phosphorus 3.8 Magnesium 1.8 Total Bilirubin 0.7 AST 39 H ALT 20 Alkaline Phosphatase 95 Lactate Dehydrogenase 222 Troponin I 0.293 H* B-Natriuretic Peptide > 3280 H* Total Protein 5.7 Albumin 3.6 Globulin 2.1 L Albumin/Globulin Ratio 1.7 Triglycerides Cholesterol LDL Cholesterol, Calc HDL Cholesterol Cholesterol/HDL Ratio Lipase 39 Procalcitonin 1.29 H Ur Collection Type Clean Catch Urine Color Yellow Urine Clarity Hazy Urine pH 5.5 Ur Specific [place] 1.017 Urine Protein 2+ A Urine Glucose (UA) Negative Urine Ketones Negative Urine Blood Negative Urine Nitrite Negative Urine Bilirubin Negative Urine Urobilinogen (Auto) Negative Ur Leukocyte Esterase Positive Urine RBC 3 Urine WBC 5 Ur Squamous Epith Cells 15 H Amorphous Crystals Present A Urine Bacteria 4+ A Hyaline Casts < 1 Urine Opiates Screen Negative Urine Fentanyl Screen Negative Ur Barbiturates Screen Negative U Amphetamin/Meth Scrn Negative U Benzodiazepines Scrn Negative U Cocaine Metab Screen Negative U Marijuana (THC) Screen Negative 06/05/25 05:37 WBC 3.8 RBC 3.06 L Hgb 10.1 L Hct 33.6 L MCV 110 H MCH 33.0 MCHC 30.1 L RDW Std Deviation 66.5 H Plt Count 98 L Neut % (Auto) 71 Lymph % (Auto) 16 [place] % (Auto) 12 Eos % (Auto) 0 Baso % (Auto) 1 Neut # (Auto) 2.7 Lymph # (Auto) 0.6 L [place] # (Auto) 0.4 Eos # (Auto) 0.0 Baso # (Auto) 0.0 Immature Gran # (Auto) 0.02 H Absolute Nucleated RBC 0.00 Immature Gran % 1 H Nucleated RBC % 0 PT INR APTT Puncture Site ABG pH ABG pCO2 ABG pO2 ABG HCO3 ABG O2 Saturation ABG Base Excess Oxygen Liter Flow Sodium 136 Potassium 5.4 H Chloride 97 L Carbon Dioxide 29.0 Anion Gap 10 BUN 47 H Creatinine 4.4 H* Estim Creat Clear Calc 6.5 L eGFR 9 L* BUN/Creatinine Ratio 11 L Glucose [address] Glu mg/dL 151 H Hemoglobin A1c 6.9 H Calculated Osmolality 284 Lactic Acid Calcium 9.3 Corrected Calcium 9.9 Phosphorus 5.5 H Magnesium 2.3 Total Bilirubin 0.5 AST 39 H ALT 18 Alkaline Phosphatase 83 Lactate Dehydrogenase Troponin I 0.241 H* B-Natriuretic Peptide Total Protein 5.2 L Albumin 3.2 L Globulin 2.0 L Albumin/Globulin Ratio 1.6 Triglycerides 42 Cholesterol 69 L LDL Cholesterol, Calc 20 HDL Cholesterol 41 Cholesterol/HDL Ratio 1.7 L Lipase Procalcitonin Ur Collection Type Urine Color Urine Clarity Urine pH Ur Specific [place] Urine Protein Urine Glucose (UA) Urine Ketones Urine Blood Urine Nitrite Urine Bilirubin Urine Urobilinogen (Auto) Ur Leukocyte Esterase Urine RBC Urine WBC Ur Squamous Epith Cells Amorphous Crystals Urine Bacteria Hyaline Casts Urine Opiates Screen Urine Fentanyl Screen Ur Barbiturates Screen U Amphetamin/Meth Scrn U Benzodiazepines Scrn U Cocaine Metab Screen U Marijuana (THC) Screen ABG Interpretation ABG results: 06/04/25 15:40 ABG pH 7.38 ABG pCO2 52 H ABG pO2 148 H ABG HCO3 31 H ABG O2 Saturation 100 H ABG Base Excess 5 H Quality Measures Quality Measures none Advance care planning discussed with:: patient Assessment & Plan Assessment Current Active Medications: Generic Name Dose Route Start Last Admin Trade Name Freq PRN Reason Stop Dose Admin Acetaminophen 650 mg 06/04/25 17:31 Acetaminophen 325 Mg Tablet PO 07/04/25 17:30 Q6H PRN Fever >101.5 Acetaminophen 650 mg 06/04/25 17:31 Acetaminophen 325 Mg Tablet PO 07/04/25 17:30 Q6H PRN PAIN SCALE 1-3 (mild Hydrocodone Bitart/Acetaminophen 1 tab 06/04/25 17:31 Hydrocodone/Apap 5/325 Tablet PO 06/09/25 17:30 Q4HR PRN PAIN SCALE 4-6 (Moderate Aspirin 81 mg 06/04/25 21:00 06/04/25 21:26 Aspirin Ec 81 Mg Tabec PO 07/04/25 20:59 81 mg QDAY GILLIAN Administration Atorvastatin Calcium 20 mg 06/05/25 21:00 Atorvastatin Calcium 20 Mg Tablet PO 07/05/25 20:59 HS GILLIAN Dextrose 25 ml 06/04/25 19:37 Dextrose 50%-Water Inj 50 Ml Syringe IV 07/04/25 19:36 Q15MIN PRN BG 50-70 responsive npo pt Dextrose 50 ml 06/04/25 19:37 Dextrose 50%-Water Inj 50 Ml Syringe IV 07/04/25 19:36 Q15MIN PRN BG <50 OR BG <70 & pt unresponsive Docusate Sodium 100 mg 06/04/25 17:31 Docusate Sod 100 Mg Capsule PO 07/04/25 17:30 QDAY PRN CONSTIPATION Protocol Furosemide 40 mg 06/04/25 21:00 06/04/25 21:26 Furosemide Inj 10 Mg/Ml 4ml Vial IVP 07/04/25 20:59 40 mg QDAY GILLIAN Administration Glucagon 1 mg 06/04/25 19:37 Glucagon Inj 1 Mg Vial IM Q15MIN PRN BG <70, and no IV access Heparin Sodium (Porcine) 5,000 unit 06/04/25 17:45 06/04/25 18:06 Heparin Sod Inj 5000 Unit/Ml Vial SC 06/18/25 17:44 5,000 unit Q12HR GILLIAN Administration Ceftriaxone Sodium/Dextrose 1 gm in 50 mls @ 100 mls/hr 06/04/25 18:08 06/04/25 19:57 Rocephin/D5w 1gm Iv Premix IV 06/11/25 18:07 100 mls/hr QDAY GILLIAN Administration Azithromycin 500 mg/ Sodium 250 mls @ 250 mls/hr 06/05/25 21:00 Chloride IV 06/11/25 20:59 QDAY@2100 [facility] Insulin Human Lispro 0 unit 06/05/25 00:00 06/05/25 05:41 Insulin Lispro (Admelog) 1 Unit/0.01 Ml Unit SC 07/05/25 00:00 Not Given Q6HR [facility] Protocol Midodrine 5 mg 06/04/25 22:00 06/05/25 05:41 Midodrine 5 Mg Tablet PO 07/04/25 21:59 5 mg TID GILLIAN Administration Mirtazapine 15 mg 06/05/25 21:00 Mirtazapine 15 Mg Tablet PO 07/05/25 20:59 HS GILLIAN Ondansetron HCl 4 mg 06/04/25 17:31 Ondansetron Inj 2 Mg/Ml Inj 2 Ml IVP 07/04/25 17:30 Q6H PRN NAUSEA OR VOMITING Protocol Oseltamivir Phosphate 30 mg 06/04/25 18:45 06/04/25 19:56 Oseltamivir 6 Mg/Ml PO 06/11/25 18:44 30 mg DAILY GILLIAN Administration Sevelamer Carbonate 800 mg 06/05/25 08:00 Sevelamer Carbonate 800 Mg Tablet PO 07/05/25 07:59 TIDWM GILLIAN Vitamin D 1,000 iu 06/05/25 09:00 Cholecalciferol (Vitamin D3) 1,000 Iu Tablet PO 07/05/25 08:59 QDAY GILLIAN Plan # Acute hypoxic respiratory failure Initial sx of progressive shortness of breath, hypoxic, started on OxyMask, on BiPAP Most likely 2/2 acute CHF exacerbation vs PNA On 5 L O2 NC Plan: - supplemental O2 PRN - Lasix, abx, HD as below #Sepsis - resolved Temp > 100.4 (Tmax 101.3), HR > 90 (max 93), RR > 20 (max 35) + suspected source of infection (PNA, UTI) Fluids NOT given as pt appeared to be fluid overloaded (IVC non-collapsible, elevated BNP, and imaging findings of vascular congestion and perihilar edema), has ESRD and missed HD 06/04 06/05: patient afebrile, no leukoctysosis. RR continues to be >20 (max 23) + source of infxn -- no longer meets SIRS criteria Plan: - Tylenol PRN for fever - Pending blood cx x2 - See below for abx #Community-acquired pneumonia Patient was COVID positive at [facility], bedside COVID negative Influenza A and B positive PNA at b/l lung bases seen on CXR Given DuoNeb, Zosyn x1, Azitrhomycin x1 in ED Plan: - Azitrhromycin 500 mg IV QD x 3 days (06/04 - 06/06), Ceftriaxone 1 g IV QD x 5 days (06/04 - 06/08), Tamiflu 30 mg QD x 5 days (06/04 - 06/08) - Pending COVID PCR #Acute CHF exacerbation Vascular congestion and peihilar edema seen on CXR BNP >3280 Plan: - Hemodialysis - Lasix 40 mg IV QD - Pending TTE - Strict I&Os (patient makes urine, has pure wick to measure urine output) - Daily weights - Replete electrolytes (keep Mg >2, K >4) #ESRD on HD MWF Missed dialysis 06/04 On admit: BUN 42, Cr 4 Kerrick Kleaner Operator: Dr. Dumont Plan: - Hemodialysis planned for today (06/05) - Continued home Sevelamer 80 mg TID w/ meals - Consulted nephrology (Dr. Dumont), appreciate recs - Avoid nephrotoxic agents - Renally dose meds #CAD s/p CABG Denies chest pain/pressure Lipid panel WNL Plan: - Continue home ASA 81 mg daily, atorvastatin 20 mg QHS #Troponinemia - downtrending Denies chest pain/pressure Trop 0.293 --> 0.241 Most likely 2/2 demand ischemia i/s/o sepsis Plan: - CTM for s/sx of cardiac injury, but no need to trend troponins as they are now downtrending #UTI Denies urinary sx, has hx of recurrent UTIs (3 within the past year) Plan: - Ceftriaxone 1 g IV QD x 5 days (06/04 - 06/08) - Pending urine cx #Insulin-dependent DM Initial BG 143 A1C 6.9 Plan: - SSI #Macrocytic anemia On admit: Hgb 10.6, HCT 34.4, MCV 109 No anemia present on previous CBC 04/20/24 Most likely secondary to ESRD on HD. Other DDX includes: B12 or folate deficiency, hypothyroidism Plan: - CTM with daily CBC - Pending B12, folate, reticulocyte count, TSH #Hyperkalemia Given Kayexalate, insulin, dextrose Plan: - HD - CTM with CMP #Restless leg syndrome Plan: - Held home pramipexole i/s/o CHF / fluid overload Dispo: PNA and CHF tx, HD Diet: Cardiac Bowel Reg: Docusate VTE ppx: Heparin 5000U subQ BID GI ppx: none Code status: DNR/DNI Plan discussed with Dr. Winter and Dr. Jone Zhou MD PGY1 Attending Provider Attestation/Addendum I have examined the patient, reviewed labs and imaging findings, discussed the case with the resident(s), and reviewed entered orders. I agree with the plan of care as outlined in this note, with these additional summaries/recommendations: Patient is a 85-year-old female with a medical history of ESRD on HD, diabetes mellitus type 2, CHF, asthma, hypotension, hyperlipidemia, and insomnia presents to [facility] emergency department on 06/04/2025 with chief complaint of progressively worsening shortness of breath over the last 4 days. Patient seen at bedside. No acute overnight events. Patient reportedly tested positive for COVID at alf and we were under the impression patient also tested positive for COVID in the ED. COVID returned negative and patient did not receive remdesivir or Decadron. Patient diagnosed with acute hypoxic respiratory failure and sepsis which is multifactorial in nature. Influenza A and B+ and continue tamilfu renally dosed. Patient also found to have superimposed community-acquired pneumonia as well from most likely gram-negative rods. Continue IV antibiotics. Continue supplemental oxygen and wean as tolerated. Patient diagnosed with sepsis with endorgan damage elevated troponin. She did not receive the full 30 cc/kg given her history of CHF and ESRD. Chest x-ray shows moderate vascular congestion with perihilar edema. Patient received BiPAP in the emergency room with improvement. ABG reviewed. Procalcitonin elevated. Consult nephrology for ESRD for inpatient hemodialysis. Avoid nephrotoxic agents and renally dose medications. Dialysis for preload reduction. Patient is DNR confirmed by POLST and medical team in room. Prognosis is guarded at this time. Troponins peaked and most likely secondary to demand ischemia. Continue home medications. Patient has history of hypotension and restarted on midodrine. Patient updated on the plan and agreement. Please see residents note for additional details and management. Dr. Jone MD
[2025-06-05] MEDS: SEVELAMER CARBONATE 800 MG TABLET PO ×3 (08:30→17:44)
[2025-06-05] MEDS: SOD POLYSTYRENE SULFON SUSP 15 GM/60 ML BTL PO (08:30)
[2025-06-05] MEDS: DEXTROSE 50%-WATER INJ 50 ML SYRINGE 25 ML IV (08:31)
[2025-06-05] MEDS: INSULIN HUM REGULAR 1 UNIT/0.01 ML (PER UNIT) 5 UNIT IV (08:32)
--- NOTE | 2025-06-05 08:32 | PD.IMCONS ---
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 She was seen in the emergency room from [facility] with increasing shortness of breath productive cough Cardiology consultation requested for transesophageal echo Patient is seen in the telemetry today she complains of fatigue tiredness and shortness of breath with coughing Denies any chest pain neck pain left arm pain EKG pending 2 troponin 0.2 BNP elevated 3200 cc:: cc: Indio Becerril MD Meds Home Medications and Allergies Home Medications ?Medication ?Instructions ?Recorded ?Confirmed ?Type acetaminophen 325 mg tablet 650 mg PO Q6H PRN pain (scale 06/04/25 06/04/25 History (Tylenol) score 4-6) albuterol sulfate 2.5 mg/3 mL 2.5 mg inhalation Q6H PRN 06/04/25 06/04/25 History (0.083 %) solution for nebulization shortness of breath or wheezing aspirin 81 mg capsule 81 mg PO QDAY 06/04/25 06/04/25 History atorvastatin 20 mg tablet 20 mg PO HS 06/04/25 06/04/25 History bisacodyl 10 mg rectal suppository 10 mg WI QDAY PRN constipation 06/04/25 06/04/25 History (Dulcolax (bisacodyl)) cholecalciferol (vitamin D3) 25 1,000 unit PO QDAY 06/04/25 06/04/25 History mcg (1,000 unit) capsule diphenhydramine 25 1 tab PO HS PRN insomnia 06/04/25 06/04/25 History mg-acetaminophen 500 mg tablet (Pain and Sleep) furosemide 20 mg tablet 20 mg PO DAILY 06/04/25 06/04/25 History magnesium hydroxide 400 mg/5 mL 30 ml PO Q72H PRN constipation 06/04/25 06/04/25 History oral suspension (Milk of Magnesia) midodrine 5 mg tablet 5 mg PO TID 06/04/25 06/04/25 History mirtazapine 15 mg tablet (Remeron) 15 mg PO HS 06/04/25 06/04/25 History polyethylene glycol 3350 17 gram 17 g PO QDAY 06/04/25 06/04/25 History oral powder packet (Miralax) pramipexole 0.25 mg tablet 0.25 mg PO HS 06/04/25 06/04/25 History sevelamer carbonate 800 mg tablet 800 mg PO TIDWMEAL 06/04/25 06/04/25 History sodium phosphates 19 gram-7 118 ml WI Q72H PRN constipation 06/04/25 06/04/25 History gram/118 mL enema vitamin B complex-vitamin C-folic 1 tab PO QDAY 06/04/25 06/04/25 History acid 0.8 mg tablet Allergies Allergy/AdvReac Type Severity Reaction Status Date / Time pantoprazole (From Protonix) Allergy Verified 04/20/24 12:02 Sulfa (Sulfonamide Allergy Verified 04/20/24 12:02 Antibiotics) Exam Vital Signs Temp Pulse Resp BP Pulse Ox O2 Del Method O2 Flow Rate 97.7 F 70 17 107/54 L 97 Nasal Cannula 5 06/05/25 04:00 06/05/25 07:09 06/05/25 07:09 06/05/25 05:41 06/05/25 07:09 06/05/25 04:00 06/05/25 07:09 FiO2 40 06/04/25 19:15 Routine HEENT Exam Head: Present normocephalic and atraumatic Eye: Present EOMI and PERRL ENT: Present mucous membranes moist Routine Neck Exam Neck: Present supple and trachea midline Routine Respiratory Exam Respiratory: Present chest non-tender, lungs clear, normal breath sounds and no resp distress Routine Cardiovascular Exam Cardiovascular: Present RRR Routine Abdominal Exam Abdominal: Present soft and normoactive bowel sounds Routine Extremities Exam Extremities: Present full ROM Routine Skin Exam Skin: Present intact, dry and warm Routine Neurological Exam Neurological: Present alert, oriented X3 and CN II-XII intact Routine Psychiatric Exam Psychiatric: Present normal affect and normal thought process Results Labs 06/05/25 05:37 06/05/25 05:37 Labs: Short CBC 06/04/25 06/05/25 Range/Units 15:48 05:37 WBC 5.6 3.8 (3.6-11.0) Thou/mm3 Hgb 10.6 L 10.1 L (12.0-16.0) g/dL Hct 34.4 L 33.6 L (36.0-46.0) % Plt Count 113 L 98 L (140-440) Thou/mm3 BMP 06/04/25 06/05/25 15:48 05:37 Sodium 137 136 Potassium 5.2 H 5.4 H Chloride 97 L 97 L Carbon Dioxide 30.1 29.0 BUN 42 H 47 H Creatinine 4.0 H 4.4 H* Glucose 143 H 93 D Calcium 9.4 9.3 Cardiac Enzymes 06/04/25 06/05/25 Range/Units 15:48 05:37 Troponin I 0.293 H* 0.241 H* (0.0-0.045) ng/mL Liver Function 06/04/25 06/05/25 Range/Units 15:48 05:37 Total Bilirubin 0.7 0.5 (0.3-1.2) mg/dL AST 39 H 39 H (0-34) U/L ALT 20 18 (10-49) U/L Alkaline Phosphatase 95 83 (46-116) U/L Albumin 3.6 3.2 L (3.4-4.8) gm/dL Urine 06/04/25 Range/Units 16:10 Urine Color Yellow (Lt Yel-Yel) Urine Clarity Hazy (Clear/Hazy) Urine pH 5.5 (5.0-7.0) Ur Specific [employer] 1.017 (1.001-1.035) Urine Protein 2+ A (Neg - Trace) Urine Glucose (UA) Negative (Negative) ABG Interpretation ABG results: 06/04/25 15:40 ABG pH 7.38 ABG pCO2 52 H ABG pO2 148 H ABG HCO3 31 H ABG O2 Saturation 100 H ABG Base Excess 5 H Assessment and Plan Assessment and plan (1) Hypoxia: Status: Acute (2) Influenza: Status: Acute (3) COVID-19: Status: Acute (4) Community acquired pneumonia: Status: Acute (5) Congestive heart failure: Status: Acute (6) Coronary artery disease: Status: Acute (7) Status post aorto-coronary artery bypass graft: Status: Acute Additional Assessment & Plan Additional Plan: Patient currently complains of some shortness of breath and coughing Agree with agree with current treatment plan continue treatment for pneumonia We will obtain first transthoracic echo Troponin 2 sets 0.2, doubt acute coronary syndrome
[2025-06-05] MEDS: CHOLECALCIFEROL (Vitamin D3) 1,000 IU TABLET 1000 IU PO (09:52)
[2025-06-05] MEDS: cefTRIAXone/D5w 1gm IV premix 1 GM/50 ML BAG IV (09:52)
[2025-06-05] MEDS: ASPIRIN EC 81 MG TABEC PO (09:52)
[2025-06-05] MEDS: FUROSEMIDE INJ 10 MG/ML 4ML VIAL 40 MG IVP (09:53)
[2025-06-05] MEDS: HEPARIN SOD INJ 5000 UNIT/ML VIAL SC ×2 (09:55→20:29)
--- NOTE | 2025-06-05 11:08 | PC.SS ---
HIGH SCHOOL TUTOR attempted bedside contact with the patient to conduct initial assessment. Patient reported to be tired. Request that HIGH SCHOOL TUTOR reach out to family. HIGH SCHOOL TUTOR to attempt contact as requested.
[2025-06-05 11:42] LABS: Hepatitis A Antibody IgM Non Reactive (Non React); Hepatitis B Core Antibody IgM Reactive (Non React); Hepatitis B Surface Ab NonReact(Not Immune) (Immune); Hepatitis B Surface Antigen Non Reactive (Non React); Hepatitis C Antibody Non Reactive (Non React)
[2025-06-05 12:18] LABS: COVID-19 Confirmatory PCR Positive (Neg)
[2025-06-05] MEDS: ALBUMIN HUMAN 25% IVPB 25 GM/100 ML BTL IV ×2 (14:34→15:47)
[2025-06-05 14:36] LABS: Immature Reticulocyte Fraction 14.6 % (3.0-15.9); Reticulocyte % (Auto) 1.2 % (0.5-1.5); Reticulocyte Absolute Auto 35.1 Biln/L (25.0-75.0); Reticulocyte Hgb Content 28.0 pg (28.0-35.0)
[2025-06-05 14:40] LABS: Thyroid Stimulating Hormone 3.69 uIU/mL (0.55-4.78)
--- NOTE | 2025-06-05 14:41 | PC.SS ---
Rounding Note: Patient to receive dialysis today. Echo pending. Patient receiving IV antibiotics.
[2025-06-05 16:05] LABS: Folate 23.35 ng/mL (>5.38); Vitamin B12 1306 pg/mL (211-911)
--- NOTE | 2025-06-05 16:20 | PC.SS ---
MELT ROOM OPERATOR attempted bedside contact with patient. Patient receiving dialysis.
--- NOTE | 2025-06-05 16:21 | PC.SS ---
BAKERY ASSISTANT attempted phone contact with dominick's son, Karthik Baeza; to complete initial assessment on behalf of the patient. No response. BAKERY ASSISTANT left message requesting return call.
[2025-06-05] MEDS: HEPARIN SOD INJ 1000 UNIT/ML VIAL 10 ML 3700 UNIT INDWELLCAT (17:10)
[2025-06-05] MEDS: ATORVASTATIN CALCIUM 20 MG TABLET PO (20:29)
[2025-06-05] MEDS: MIRTAZAPINE 15 MG TABLET PO (20:29)
[2025-06-05] MEDS: AZITHROMYCIN INJ 500 MG in SODIUM CHLORIDE 0.9% 250 ML 250 ML 250 MG IV (20:29)
[2025-06-05] MEDS: HYDROcodone/APAP 5/325 TABLET 1 TAB PO (20:38)
[2025-06-06] VITALS (32 sets, daily range): BP systolic 89–121; BP diastolic 41–64; PULSE 60–92; RESP 12–28; TEMP 28.1–37.1; O2SAT 90–99; BMI 21.6
[2025-06-06] MEDS: MIDODRINE 5 MG TABLET PO ×2 (05:14→21:28)
[2025-06-06 06:03] LABS: Basophils # (Auto) 0.0 Thou/mm3 (0.0-0.2); Basophils % (Auto) 1 % (0-2.5); Eosinophils # (Auto) 0.0 Thou/mm3 (0.0-0.5); Eosinophils % (Auto) 1 % (0-10); Hematocrit 33.0 % (36.0-46.0); Hemoglobin 10.1 g/dL (12.0-16.0); Immature Granulocytes Auto 0.02 Thou/mm3 (0.00-0.00); Lymphocytes # (Auto) 0.9 Thou/mm3 (1.0-4.8); Lymphocytes % (Auto) 24 % (10-50); Mean Corpuscular HGB Conc 30.6 g/dl (31.0-37.0); Mean Corpuscular Hemoglobin 33.8 pg (25.0-35.0); Mean Corpuscular Volume 110 fL (80-100); Monocytes # (Auto) 0.4 Thou/mm3 (0.0-0.8); Monocytes % (Auto) 12 % (0-12); Neutrophils # (Auto) 2.3 Thou/mm3 (1.8-7.7); Neutrophils % (Auto) 62 % (37-80); Nucleated Red Blood Cell # 0.00 Thou/mm3 (0.00-0.00); Nucleated Red Blood Cell % 0 /100 WBC (0); Platelet Count 105 Thou/mm3 (140-440); RDW Standard Deviation 67.5 fL (36.4-46.3); Red Blood Count 2.99 Miln/mm3 (4.00-5.20); White Blood Count 3.7 Thou/mm3 (3.6-11.0)
[2025-06-06 06:24] LABS: Alanine Aminotransferase 21 U/L (10-49); Albumin, Serum 3.8 gm/dL (3.4-4.8); Albumin/Globulin Ratio 1.9 (1.2-2.2); Alkaline Phosphatase 79 U/L (46-116); Anion Gap 11 (7-16); Aspartate Amino Transferase 47 U/L (0-34); BUN/Creatinine Ratio 8 Ratio (12-20); Bilirubin,Total 0.4 mg/dL (0.3-1.2); Blood Urea Nitrogen 23 mg/dL (9-23); Calcium 9.4 mg/dL (8.3-10.6); Calcium (Corrected) 9.6 mg/dL (8.5-10.1); Carbon Dioxide 29.4 mMol/L (20.0-31.0); Chloride 99 mMol/L (98-107); Creatinine (Component) 2.8 mg/dL (0.6-1.3); Estimated Creatinine Clearance 10.2 mL/min (>60); Globulin 2.0 gm/dL (2.3-3.5); Glucose 69 mg/dL (74-106); Magnesium 2.2 mg/dL (1.6-2.6); Osmolality,Calculated 279 (275-295); Phosphorous 3.7 mg/dL (2.4-5.1); Potassium 4.2 mMol/L (3.4-5.1); Sodium 139 mMol/L (136-145); Total Protein 5.8 gm/dL (5.7-8.2); eGFR 16 See Note
[2025-06-06] MEDS: ALBUMIN HUMAN 25% IVPB 25 GM/100 ML BTL IV (08:21)
[2025-06-06] MEDS: CHOLECALCIFEROL (Vitamin D3) 1,000 IU TABLET 1000 IU PO (08:22)
[2025-06-06] MEDS: ASPIRIN EC 81 MG TABEC PO (08:22)
[2025-06-06] MEDS: HEPARIN SOD INJ 5000 UNIT/ML VIAL SC ×2 (08:22→21:29)
[2025-06-06] MEDS: SEVELAMER CARBONATE 800 MG TABLET PO ×2 (08:22→17:25)
[2025-06-06] MEDS: HEPARIN SOD INJ 1000 UNIT/ML VIAL 10 ML 3700 UNIT INDWELLCAT (10:40)
[2025-06-06] MEDS: cefTRIAXone/D5w 1gm IV premix 1 GM/50 ML BAG IV (13:07)
[2025-06-06] MEDS: FUROSEMIDE INJ 10 MG/ML 4ML VIAL 40 MG IVP (13:09)
--- NOTE | 2025-06-06 13:52 | PD.IMPROG ---
Documentation for date of: 06/06/25 Subjective Subjective Interval history: Patient feels weak and short of breath Continue treatment for influenza and pneumonia/CHF Exam Vital Signs Temp Pulse Resp BP Pulse Ox O2 Del Method O2 Flow Rate 98.1 F 74 20 112/54 L 97 Nasal Cannula 5 06/06/25 11:17 06/06/25 13:30 06/06/25 11:17 06/06/25 13:30 06/06/25 11:17 06/06/25 08:00 06/06/25 11:17 FiO2 40 06/06/25 11:17 Routine HEENT Exam Head: Present normocephalic and atraumatic Eye: Present EOMI and PERRL ENT: Present mucous membranes moist Routine Neck Exam Neck: Present supple and trachea midline Routine Respiratory Exam Respiratory: Present chest non-tender, lungs clear, normal breath sounds and no resp distress Routine Cardiovascular Exam Cardiovascular: Present RRR Routine Abdominal Exam Abdominal: Present soft and normoactive bowel sounds Routine Extremities Exam Extremities: Present full ROM Routine Skin Exam Skin: Present intact, dry and warm Routine Neurological Exam Neurological: Present alert, oriented X3 and CN II-XII intact Routine Psychiatric Exam Psychiatric: Present normal affect and normal thought process Objective Labs 06/06/25 05:09 06/06/25 05:09 Labs: Laboratory Results - last 24 hr 06/05/25 06/05/25 06/06/25 05:37 15:26 05:09 WBC 3.7 RBC 2.99 L Hgb 10.1 L Hct 33.0 L MCV 110 H MCH 33.8 MCHC 30.6 L RDW Std Deviation 67.5 H Plt Count 105 L Neut % (Auto) 62 Lymph % (Auto) 24 [place] % (Auto) 12 Eos % (Auto) 1 Baso % (Auto) 1 Neut # (Auto) 2.3 Lymph # (Auto) 0.9 L [place] # (Auto) 0.4 Eos # (Auto) 0.0 Baso # (Auto) 0.0 Immature Gran # (Auto) 0.02 H Absolute Nucleated RBC 0.00 Immature Gran % 1 H Nucleated RBC % 0 Retic Count (auto) 1.2 Absolute Retic 35.1 Immature Retic Fraction 14.6 Retic Hgb Content CHr 28.0 Sodium 139 Potassium 4.2 D Chloride 99 Carbon Dioxide 29.4 Anion Gap 11 BUN 23 Creatinine 2.8 H D Estim Creat Clear Calc 10.2 L eGFR 16 L BUN/Creatinine Ratio 8 L Glucose 69 L Calculated Osmolality 279 Calcium 9.4 Corrected Calcium 9.6 Phosphorus 3.7 Magnesium 2.2 Total Bilirubin 0.4 AST 47 H ALT 21 Alkaline Phosphatase 79 Total Protein 5.8 Albumin 3.8 D Globulin 2.0 L Albumin/Globulin Ratio 1.9 Vitamin B12 1306 H Folate 23.35 TSH 3.69 ABG Interpretation ABG results: 06/04/25 15:40 ABG pH 7.38 ABG pCO2 52 H ABG pO2 148 H ABG HCO3 31 H ABG O2 Saturation 100 H ABG Base Excess 5 H Assessment & Plan A&P Narrative Patient currently complains of some shortness of breath and coughing Agree with agree with current treatment plan continue treatment for pneumonia We will obtain first transthoracic echo after you remove the Troponin 2 sets 0.2, doubt acute coronary syndrome Time Spent With Patient Time: Total time spent is greater than 50% in coordination of care (as documented) at patient's floor/unit and/or counseling patient:
--- NOTE | 2025-06-06 14:42 | ESPR_ITS ---
<Statement entered by Suraj Bergman MD - 06/06/25 22:09> Patient was examined and case was reviewed with team including attending physician. Note reviewed, I agree with most of its contents and agree with the patient's care as documented by Dr. Pike #Acute hypoxic respiratory failure secondary to #Influenza A and B Pneumonia #COVID-19 #Sepsis-ruled out Initial sx of progressive shortness of breath, hypoxic, started on OxyMask and later switched to BiPAP. Patient was COVID positive at [facility], bedside COVID negative, Influenza A and B positive CXR shows bilateral pneumonia Fluids NOT given as pt appeared to be fluid overloaded on presentation Patient came in and found to have 2 or more SIRS criteria and was evaluated for sepsis. However, based upon further work-up, sepsis was ruled out. Patient presently tested positive for COVID PCR, testing however patient already on tamiflu for influenza, due to interactions remdesivir and steroids withheld at this time and currently off window for treatment as per CDC. Patient overall clinically improving. Plan: - on Rocephin (06/04 - 06/08) + Azithromycin (06/04-06/06) - on Tamiflu 30 mg qday (06/04 - 06/08), renally dose due to ESRD - Duonebs as needed - supplemental O2 PRN #Acute decompensated Heart failure Vascular congestion and peihilar edema seen on CXR NYHA class: IV BNP >3280 Plan: - Lasix 40 mg IV qday - Pending echo - Strict I&Os - Daily weights - Replete electrolytes (keep Mg >2, K >4) Suraj Bergman MD PGY-2 Documentation for date of: 06/06/25 Subjective Subjective Interval history: No overnight events. Evaluated at bedside. Pt is flu A, B and COVID positive. Continue tamiflu and abx tx for pneumonia. HD today. Pending echo. Exam Vital Signs Temp Pulse Resp BP Pulse Ox O2 Del Method O2 Flow Rate 98.1 F 74 20 112/54 L 97 Nasal Cannula 5 06/06/25 11:17 06/06/25 13:30 06/06/25 11:17 06/06/25 13:30 06/06/25 11:17 06/06/25 08:00 06/06/25 11:17 FiO2 40 06/06/25 11:17 Narrative Exam General: Well appearing, well nourished, in no distress. Oriented x 3, normal mood and affect Skin: Good turgor, no rash, unusual bruising or prominent lesions Head: Normocephalic, atraumatic, no visible or palpable masses, depressions, or scaring. Heart: No cardiomegaly or thrills; regular rate and rhythm, no murmur or gallop Lungs: Slight crackles to lower base. Abdomen: Bowel sounds normal, no tenderness, organomegaly, masses, or hernia Back: Spine normal without deformity or tenderness, no CVA tenderness Extremities: No amputations or deformities, cyanosis, edema or varicosities, peripheral pulses intact. Fistula left arm. 1+ pitting edema to LE. Objective Labs 06/07/25 04:45 06/07/25 04:45 Labs: Laboratory Results - last 24 hr 06/05/25 06/06/25 15:26 05:09 WBC 3.7 RBC 2.99 L Hgb 10.1 L Hct 33.0 L MCV 110 H MCH 33.8 MCHC 30.6 L RDW Std Deviation 67.5 H Plt Count 105 L Neut % (Auto) 62 Lymph % (Auto) 24 Parker % (Auto) 12 Eos % (Auto) 1 Baso % (Auto) 1 Neut # (Auto) 2.3 Lymph # (Auto) 0.9 L Parker # (Auto) 0.4 Eos # (Auto) 0.0 Baso # (Auto) 0.0 Immature Gran # (Auto) 0.02 H Absolute Nucleated RBC 0.00 Immature Gran % 1 H Nucleated RBC % 0 Sodium 139 Potassium 4.2 D Chloride 99 Carbon Dioxide 29.4 Anion Gap 11 BUN 23 Creatinine 2.8 H D Estim Creat Clear Calc 10.2 L eGFR 16 L BUN/Creatinine Ratio 8 L Glucose 69 L Calculated Osmolality 279 Calcium 9.4 Corrected Calcium 9.6 Phosphorus 3.7 Magnesium 2.2 Total Bilirubin 0.4 AST 47 H ALT 21 Alkaline Phosphatase 79 Total Protein 5.8 Albumin 3.8 D Globulin 2.0 L Albumin/Globulin Ratio 1.9 Vitamin B12 1306 H Folate 23.35 ABG Interpretation ABG results: 06/04/25 15:40 ABG pH 7.38 ABG pCO2 52 H ABG pO2 148 H ABG HCO3 31 H ABG O2 Saturation 100 H ABG Base Excess 5 H Quality Measures Quality Measures VTE prophylaxis Advance care planning discussed with:: patient Assessment & Plan Assessment Current Active Medications: Generic Name Dose Route Start Last Admin Trade Name Carmina PRN Reason Stop Dose Admin Acetaminophen 650 mg 06/04/25 17:31 Acetaminophen 325 Mg Tablet PO 07/04/25 17:30 Q6H PRN Fever >101.5 Acetaminophen 650 mg 06/04/25 17:31 Acetaminophen 325 Mg Tablet PO 07/04/25 17:30 Q6H PRN PAIN SCALE 1-3 (mild Hydrocodone Bitart/Acetaminophen 1 tab 06/04/25 17:31 06/05/25 20:38 Hydrocodone/Apap 5/325 Tablet PO 06/09/25 17:30 1 tab Q4HR PRN Administration PAIN SCALE 4-6 (Moderate Aspirin 81 mg 06/04/25 21:00 06/06/25 08:22 Aspirin Ec 81 Mg Tabec PO 07/04/25 20:59 81 mg QDAY GILLIAN Administration Atorvastatin Calcium 20 mg 06/05/25 21:00 06/05/25 20:29 Atorvastatin Calcium 20 Mg Tablet PO 07/05/25 20:59 20 mg HS GILLIAN Administration Dextrose 25 ml 06/04/25 19:37 Dextrose 50%-Water Inj 50 Ml Syringe IV 07/04/25 19:36 Q15MIN PRN BG 50-70 responsive npo pt Dextrose 50 ml 06/04/25 19:37 Dextrose 50%-Water Inj 50 Ml Syringe IV 07/04/25 19:36 Q15MIN PRN BG <50 OR BG <70 & pt unresponsive Docusate Sodium 100 mg 06/04/25 17:31 Docusate Sod 100 Mg Capsule PO 07/04/25 17:30 QDAY PRN CONSTIPATION Protocol Furosemide 40 mg 06/04/25 21:00 06/06/25 13:09 Furosemide Inj 10 Mg/Ml 4ml Vial IVP 07/04/25 20:59 40 mg QDAY GILLIAN Administration Glucagon 1 mg 06/04/25 19:37 Glucagon Inj 1 Mg Vial IM Q15MIN PRN BG <70, and no IV access Heparin Sodium (Porcine) 5,000 unit 06/04/25 17:45 06/06/25 08:22 Heparin Sod Inj 5000 Unit/Ml Vial SC 06/18/25 17:44 5,000 unit Q12HR GILLIAN Administration Heparin Sodium (Porcine) 3,700 unit 06/05/25 16:35 06/06/25 10:40 Heparin Sod Inj 1000 Unit/Ml Vial 10 Ml INDWELLCAT 06/19/25 16:34 3,700 unit X1 PRN Administration DIALYSIS Ceftriaxone Sodium/Dextrose 1 gm in 50 mls @ 100 mls/hr 06/04/25 18:08 06/06/25 13:07 Rocephin/D5w 1gm Iv Premix IV 06/11/25 18:07 100 mls/hr QDAY GILLIAN Administration Azithromycin 500 mg/ Sodium 250 mls @ 250 mls/hr 06/05/25 21:00 06/05/25 20:29 Chloride IV 06/11/25 20:59 250 mls/hr QDAY@2100 GILLIAN Administration Insulin Human Lispro 0 unit 06/05/25 00:00 06/06/25 05:13 Insulin Lispro (Admelog) 1 Unit/0.01 Ml Unit SC 07/05/25 00:00 Not Given Q6HR GILLIAN Protocol Midodrine 5 mg 06/04/25 22:00 06/06/25 13:30 Midodrine 5 Mg Tablet PO 07/04/25 21:59 Not Given TID GILLIAN Mirtazapine 15 mg 06/05/25 21:00 06/05/25 20:29 Mirtazapine 15 Mg Tablet PO 07/05/25 20:59 15 mg HS GILLIAN Administration Ondansetron HCl 4 mg 06/04/25 17:31 Ondansetron Inj 2 Mg/Ml Inj 2 Ml IVP 07/04/25 17:30 Q6H PRN NAUSEA OR VOMITING Protocol Oseltamivir Phosphate 30 mg 06/06/25 09:00 06/06/25 13:16 Oseltamivir 30 Mg Capsule PO 06/11/25 18:44 Not Given DAILY GILLIAN Sevelamer Carbonate 800 mg 06/05/25 08:00 06/06/25 13:17 Sevelamer Carbonate 800 Mg Tablet PO 07/05/25 07:59 Not Given TIDWM GILLIAN Vitamin D 1,000 iu 06/05/25 09:00 06/06/25 08:22 Cholecalciferol (Vitamin D3) 1,000 Iu Tablet PO 07/05/25 08:59 1,000 iu QDAY GILLIAN Administration Plan 85F with a medical history of ESRD M/W/F on HD, diabetes mellitus type 2, CHF, asthma, hypotension, hyperlipidemia, and insomnia admitted for CHF exacerbation. Flu A&B positive. COVID-19 positive. Pending echo. # Acute hypoxic respiratory failure Initial sx of progressive shortness of breath, hypoxic, started on OxyMask, was on BiPAP. Most likely 2/2 acute CHF exacerbation vs PNA Currently on 5 L O2 NC Plan: - supplemental O2 PRN - Lasix, abx, HD as below #Sepsis - resolved Temp > 100.4 (Tmax 101.3), HR > 90 (max 93), RR > 20 (max 35) + suspected source of infection (PNA, UTI) Fluids NOT given as pt appeared to be fluid overloaded (IVC non-collapsible, elevated BNP, and imaging findings of vascular congestion and perihilar edema), has ESRD and missed HD 06/04 06/05: patient afebrile, no leukoctysosis. RR continues to be >20 (max 23) + source of infxn -- no longer meets SIRS criteria Plan: - Tylenol PRN for fever - Bcx NG @ 48H - See below for abx #Community-acquired pneumonia Patient was COVID positive at [facility], bedside COVID negative Influenza A and B positive PNA at b/l lung bases seen on CXR Given DuoNeb, Zosyn x1, Azitrhomycin x1 in ED Plan: - Azitrhromycin 500 mg IV QD x 3 days (06/04 - 06/06), Ceftriaxone 1 g IV QD x 5 days (06/04 - 06/08), Tamiflu 30 mg QD x 5 days (06/04 - 06/08) - COVID PCR positive, no treatment indicated at this point as pt is outside of tx window per CDC guideline. #Acute CHF exacerbation Vascular congestion and peihilar edema seen on CXR BNP >3280 Plan: - Hemodialysis - Lasix 40 mg IV QD - Pending TTE - Strict I&Os (patient makes urine, has pure wick to measure urine output) - Daily weights - Replete electrolytes (keep Mg >2, K >4) #ESRD on HD MWF Missed dialysis 06/04 On admit: BUN 42, Cr [employer]: Dr. Dumont Plan: - Hemodialysis planned for today (8/7) - Continued home Sevelamer 80 mg TID w/ meals - Consulted nephrology (Dr. Dumont), appreciate recs - Avoid nephrotoxic agents - Renally dose meds #CAD s/p CABG Denies chest pain/pressure Lipid panel WNL Plan: - Continue home ASA 81 mg daily, atorvastatin 20 mg QHS #Troponinemia - downtrending Denies chest pain/pressure Trop 0.293 --> 0.241 Most likely 2/2 demand ischemia i/s/o sepsis Plan: - CTM for s/sx of cardiac injury, but no need to trend troponins as they are now downtrending #UTI Denies urinary sx, has hx of recurrent UTIs (3 within the past year) Plan: - Ceftriaxone 1 g IV QD x 5 days (06/04 - 06/08) - Pending urine cx #Insulin-dependent DM Initial BG 143 A1C 6.9 Plan: - SSI #Macrocytic anemia On admit: Hgb 10.6, HCT 34.4, MCV 109 No anemia present on previous CBC 04/20/24 Most likely secondary to ESRD on HD. Other DDX includes: B12 or folate deficiency, hypothyroidism 06/05: B12 1306, folate 23.35. Retic count 1.2%. TSH 3.69 Plan: - CTM with daily CBC - B12, folate, reticulocyte count, TSH #Hyperkalemia Given Kayexalate, insulin, dextrose Plan: - HD - CTM with CMP #Restless leg syndrome Plan: - Held home pramipexole i/s/o CHF / fluid overload Dispo: PNA and CHF tx, HD Diet: Cardiac Bowel Reg: Docusate VTE ppx: Heparin 5000U subQ BID GI ppx: none Code status: DNR/DNI Case discussed with my senior resident Dr. Winter Case discussed with my attending Dr. Jone Pike, DO PGY 1 Attending Provider Attestation/Addendum I have examined the patient, reviewed labs and imaging findings, discussed the case with the resident(s), and reviewed entered orders. I agree with the plan of care as outlined in this note, with these additional summaries/recommendations: Patient is a 85-year-old female with a medical history of ESRD on HD, diabetes mellitus type 2, CHF, asthma, hypotension, hyperlipidemia, and insomnia presents to [facility] emergency department on 06/04/2025 with chief complaint of progressively worsening shortness of breath over the last 4 days. Patient seen at bedside. No acute overnight events. Patient reports some improvement in her shortness of breath. COVID PCR did return positive today. Given that patient reports improvement in symptoms we will defer remdesivir/Decadron for now. Patient diagnosed with acute hypoxic respiratory failure and sepsis which is multifactorial in nature. Influenza A and B+ and continue tamilfu renally dosed. COVID-positive. Patient also found to have superimposed community-acquired pneumonia from most likely gram-negative rods. Continue IV antibiotics. Continue supplemental oxygen and wean as tolerated. Sepsis now resolved. Chest x-ray shows moderate vascular congestion with perihilar edema. Patient received BiPAP in the emergency room with improvement. ABG reviewed. Nephrology following for ESRD for inpatient hemodialysis. Avoid nephrotoxic agents and renally dose medications. Dialysis for preload reduction in the setting of CHF exacerbation as well. Patient is DNR confirmed by POLST and medical team in room. Prognosis is guarded at this time. Troponins peaked and most likely secondary to demand ischemia. Continue home medications. Patient has history of hypotension and restarted on midodrine. Patient updated on the plan and agreement. Please see residents note for additional details and management. Dr. Jone MD
[2025-06-06] MEDS: ATORVASTATIN CALCIUM 20 MG TABLET PO (21:28)
[2025-06-06] MEDS: AZITHROMYCIN INJ 500 MG in SODIUM CHLORIDE 0.9% 250 ML 250 ML 250 MG IV (21:28)
[2025-06-06] MEDS: MIRTAZAPINE 15 MG TABLET PO (21:28)
[2025-06-06] MEDS: HYDROcodone/APAP 5/325 TABLET 1 TAB PO (21:29)
[2025-06-07] VITALS (12 sets, daily range): BP systolic 101–141; BP diastolic 43–88; PULSE 66–85; RESP 14–21; TEMP 36.1–36.9; O2SAT 92–98; BMI 21.6
[2025-06-07] MEDS: MIDODRINE 5 MG TABLET PO ×3 (05:20→21:04)
[2025-06-07 05:37] LABS: Basophils # (Auto) 0.0 Thou/mm3 (0.0-0.2); Basophils % (Auto) 1 % (0-2.5); Eosinophils # (Auto) 0.0 Thou/mm3 (0.0-0.5); Eosinophils % (Auto) 1 % (0-10); Hematocrit 35.0 % (36.0-46.0); Hemoglobin 10.6 g/dL (12.0-16.0); Immature Granulocytes Auto 0.01 Thou/mm3 (0.00-0.00); Lymphocytes # (Auto) 1.2 Thou/mm3 (1.0-4.8); Lymphocytes % (Auto) 33 % (10-50); Mean Corpuscular HGB Conc 30.3 g/dl (31.0-37.0); Mean Corpuscular Hemoglobin 33.7 pg (25.0-35.0); Mean Corpuscular Volume 111 fL (80-100); Monocytes # (Auto) 0.4 Thou/mm3 (0.0-0.8); Monocytes % (Auto) 13 % (0-12); Neutrophils # (Auto) 1.9 Thou/mm3 (1.8-7.7); Neutrophils % (Auto) 53 % (37-80); Nucleated Red Blood Cell # 0.00 Thou/mm3 (0.00-0.00); Nucleated Red Blood Cell % 0 /100 WBC (0); Platelet Count 108 Thou/mm3 (140-440); RDW Standard Deviation 67.1 fL (36.4-46.3); Red Blood Count 3.15 Miln/mm3 (4.00-5.20); White Blood Count 3.5 Thou/mm3 (3.6-11.0)
[2025-06-07 05:50] LABS: Path Review Blood Smear Sent to Pathologist
[2025-06-07 05:57] LABS: Alanine Aminotransferase 17 U/L (10-49); Albumin, Serum 3.8 gm/dL (3.4-4.8); Albumin/Globulin Ratio 2.1 (1.2-2.2); Alkaline Phosphatase 80 U/L (46-116); Anion Gap 11 (7-16); Aspartate Amino Transferase 41 U/L (0-34); BUN/Creatinine Ratio 7 Ratio (12-20); Bilirubin,Total 0.4 mg/dL (0.3-1.2); Blood Urea Nitrogen 16 mg/dL (9-23); Calcium 9.2 mg/dL (8.3-10.6); Calcium (Corrected) 9.4 mg/dL (8.5-10.1); Carbon Dioxide 29.9 mMol/L (20.0-31.0); Chloride 99 mMol/L (98-107); Creatinine (Component) 2.4 mg/dL (0.6-1.3); Estimated Creatinine Clearance 11.9 mL/min (>60); Globulin 1.8 gm/dL (2.3-3.5); Glucose 70 mg/dL (74-106); Magnesium 2.1 mg/dL (1.6-2.6); Osmolality,Calculated 278 (275-295); Phosphorous 3.3 mg/dL (2.4-5.1); Potassium 3.9 mMol/L (3.4-5.1); Sodium 140 mMol/L (136-145); Total Protein 5.6 gm/dL (5.7-8.2); eGFR 19 See Note
--- NOTE | 2025-06-07 07:58 | PC.SS ---
TELECOMMUNICATIONS SWITCH TECHNICIAN conducted bedside contact with the patient conduct initial assessment and to discuss discharge planning.? Patient confirmed demographic information.? Patient is a resident of [facility].? Patient has been placed at [facility] for approximately 3 weeks.? Patient reports placement as short term.? Patient utilizes a walker to assist with ambulation.? Patient utilizes oxygen at facility.? Patient requires assistance with completion of ADL?s.? Patient identified son, Karthik Baeza ; as surrogate medical decision maker.? Patient utilizes [facility]; for PCP services.? Patient is established with outpatient dialysis.? Dr. Dumont is rounder and backer.? Dialysis schedule is M,,.? Patient utilizes [facility] for medication services.? TELECOMMUNICATIONS SWITCH TECHNICIAN discussed discharge plan with the patient.? Discussed pending PT evaluation.? If physical therapy recommends home with home health recommendations patient does not possess a preferred agency.? If physical therapy recommends SNF patient will return to [facility].? If patient returns home will need to ensure that oxygen is available at home.? Patient unable to recall DME vendor.? fire services plumber will assist with scheduling transportation on behalf of the patient at the time of discharge.? No further discharge needs identified by the patient.? No further intervention required at this time, social worker palliative care will be available to address any further concerns.? Next of Kin: Karthik Baeza D/C Plan: Pending
[2025-06-07] MEDS: FUROSEMIDE INJ 10 MG/ML 4ML VIAL 40 MG IVP (09:27)
[2025-06-07] MEDS: HEPARIN SOD INJ 5000 UNIT/ML VIAL SC ×2 (09:28→20:58)
[2025-06-07] MEDS: CHOLECALCIFEROL (Vitamin D3) 1,000 IU TABLET 1000 IU PO (09:29)
[2025-06-07] MEDS: cefTRIAXone/D5w 1gm IV premix 1 GM/50 ML BAG IV (09:29)
[2025-06-07] MEDS: SEVELAMER CARBONATE 800 MG TABLET PO ×3 (09:29→17:18)
[2025-06-07] MEDS: OSELTAMIVIR 30 MG CAPSULE PO (09:30)
[2025-06-07] MEDS: ASPIRIN EC 81 MG TABEC PO (09:30)
--- NOTE | 2025-06-07 09:38 | ESPR_ITS ---
<Statement entered by Eliud Pierce MD - 06/07/25 14:34> Senior Resident Attestation: I supervised/discussed management plan with leadership program internship physician Dr. Zhou, and was involved in the care of this patient. I personally saw and examined the patient and discussed the assessment and plan with the entire medicine team, including my attending. I agree with the assessment and plan as documented. No acute overnight events reported patient was seen and examined at bedside. Patient reports no new complaints. She continues to be on IV antibiotics and Tamiflu. Her COVID PCR returned positive from yesterday. Your creatinine is improving. Will continue current management and monitor patient, awaiting cultures. Patient's care was discussed with attending physician, Dr. Becerril. Eliud Pierce MD PGY-3. Documentation for date of: 06/07/25 Subjective Subjective Interval history: Patient evaluated at bedside. Reports improved shortness of breath. On 5L NC, spO2 appropriate. Denies new symptoms. Had 2L removed in HD yesterday. Exam Vital Signs Temp Pulse Resp BP Pulse Ox O2 Del Method O2 Flow Rate 97.0 F 75 20 124/52 L 97 Oxy Mask 6 06/07/25 04:00 06/07/25 09:27 06/07/25 04:00 06/07/25 09:27 06/07/25 04:00 06/07/25 04:00 06/07/25 04:00 FiO2 40 06/06/25 11:17 Narrative Exam General: Elderly female, appears stated age, no acute distress Eye: PERRL, EOMI, normal conjunctiva, no scleral icterus HENT: Normocephalic, atraumatic, normal hearing, moist oral mucosa Neck: Supple, non-tender, no JVD, no lymphadenopathy Lungs: spO2 98% on 5L NC, no crackles appreciated, symmetric chest rise, no use of accessory muscles Heart: Normal S1 and S2, no S3 or S4 appreciated. Normal rate and regular rhythm, no murmurs, rubs gallops, or edema. Peripheral pulses intact bilaterally, capillary refill brisk distally. 1+ b/l LE edema noted. Fistula of left arm. Abdomen: Soft, non-tender, non-distended, normal bowel sounds. No guarding or rebound tenderness. Musculoskeletal: Normal range of motion and strength, no tenderness or swelling Skin: Skin is warm, dry, no rashes or lesions. Neurologic: Alert, awake and oriented x3. CN II-XII grossly intact. No focal neuro deficits. Psychiatric: Cooperative, appropriate mood and affect Objective Labs 06/07/25 04:45 06/07/25 04:45 Labs: Laboratory Results - last 24 hr 06/07/25 04:45 WBC 3.5 L RBC 3.15 L Hgb 10.6 L Hct 35.0 L MCV 111 H MCH 33.7 MCHC 30.3 L RDW Std Deviation 67.1 H Plt Count 108 L Neut % (Auto) 53 Lymph % (Auto) 33 [place] % (Auto) 13 H Eos % (Auto) 1 Baso % (Auto) 1 Neut # (Auto) 1.9 Lymph # (Auto) 1.2 [place] # (Auto) 0.4 Eos # (Auto) 0.0 Baso # (Auto) 0.0 Immature Gran # (Auto) 0.01 H Absolute Nucleated RBC 0.00 Immature Gran % 0 Nucleated RBC % 0 Smear Path Review Sent to Pathologist Sodium 140 Potassium 3.9 Chloride 99 Carbon Dioxide 29.9 Anion Gap 11 BUN 16 Creatinine 2.4 H Estim Creat Clear Calc 11.9 L eGFR 19 L BUN/Creatinine Ratio 7 L Glucose 70 L Calculated Osmolality 278 Calcium 9.2 Corrected Calcium 9.4 Phosphorus 3.3 Magnesium 2.1 Total Bilirubin 0.4 AST 41 H ALT 17 Alkaline Phosphatase 80 Total Protein 5.6 L Albumin 3.8 Globulin 1.8 L Albumin/Globulin Ratio 2.1 ABG Interpretation ABG results: 06/04/25 15:40 ABG pH 7.38 ABG pCO2 52 H ABG pO2 148 H ABG HCO3 31 H ABG O2 Saturation 100 H ABG Base Excess 5 H Quality Measures Quality Measures VTE prophylaxis Advance care planning discussed with:: patient Assessment & Plan Assessment Current Active Medications: Generic Name Dose Route Start Last Admin Trade Name Freq PRN Reason Stop Dose Admin Acetaminophen 650 mg 06/04/25 17:31 Acetaminophen 325 Mg Tablet PO 07/04/25 17:30 Q6H PRN Fever >101.5 Acetaminophen 650 mg 06/04/25 17:31 Acetaminophen 325 Mg Tablet PO 07/04/25 17:30 Q6H PRN PAIN SCALE 1-3 (mild Hydrocodone Bitart/Acetaminophen 1 tab 06/04/25 17:31 06/06/25 21:29 Hydrocodone/Apap 5/325 Tablet PO 06/09/25 17:30 1 tab Q4HR PRN Administration PAIN SCALE 4-6 (Moderate Aspirin 81 mg 06/04/25 21:00 06/07/25 09:30 Aspirin Ec 81 Mg Tabec PO 07/04/25 20:59 81 mg QDAY GILLIAN Administration Atorvastatin Calcium 20 mg 06/05/25 21:00 06/06/25 21:28 Atorvastatin Calcium 20 Mg Tablet PO 07/05/25 20:59 20 mg HS GILLIAN Administration Dextrose 25 ml 06/04/25 19:37 Dextrose 50%-Water Inj 50 Ml Syringe IV 07/04/25 19:36 Q15MIN PRN BG 50-70 responsive npo pt Dextrose 50 ml 06/04/25 19:37 Dextrose 50%-Water Inj 50 Ml Syringe IV 07/04/25 19:36 Q15MIN PRN BG <50 OR BG <70 & pt unresponsive Docusate Sodium 100 mg 06/04/25 17:31 Docusate Sod 100 Mg Capsule PO 07/04/25 17:30 QDAY PRN CONSTIPATION Protocol Furosemide 40 mg 06/04/25 21:00 06/07/25 09:27 Furosemide Inj 10 Mg/Ml 4ml Vial IVP 07/04/25 20:59 40 mg QDAY GILLIAN Administration Glucagon 1 mg 06/04/25 19:37 Glucagon Inj 1 Mg Vial IM Q15MIN PRN BG <70, and no IV access Heparin Sodium (Porcine) 5,000 unit 06/04/25 17:45 06/07/25 09:28 Heparin Sod Inj 5000 Unit/Ml Vial SC 06/18/25 17:44 5,000 unit Q12HR GILLIAN Administration Heparin Sodium (Porcine) 3,700 unit 06/05/25 16:35 06/06/25 10:40 Heparin Sod Inj 1000 Unit/Ml Vial 10 Ml INDWELLCAT 06/19/25 16:34 3,700 unit X1 PRN Administration DIALYSIS Ceftriaxone Sodium/Dextrose 1 gm in 50 mls @ 100 mls/hr 06/04/25 18:08 06/07/25 09:29 Rocephin/D5w 1gm Iv Premix IV 06/11/25 18:07 100 mls/hr QDAY GILLIAN Administration Azithromycin 500 mg/ Sodium 250 mls @ 250 mls/hr 06/05/25 21:00 06/06/25 21:28 Chloride IV 06/11/25 20:59 250 mls/hr QDAY@2100 GILLIAN Administration Insulin Human Lispro 0 unit 06/07/25 07:30 06/07/25 07:55 Insulin Lispro (Admelog) 1 Unit/0.01 Ml Unit SC 07/07/25 07:29 Not Given ACHS GILLIAN Protocol Midodrine 5 mg 06/04/25 22:00 06/07/25 05:20 Midodrine 5 Mg Tablet PO 07/04/25 21:59 5 mg TID GILLIAN Administration Mirtazapine 15 mg 06/05/25 21:00 06/06/25 21:28 Mirtazapine 15 Mg Tablet PO 07/05/25 20:59 15 mg HS GILLIAN Administration Ondansetron HCl 4 mg 06/04/25 17:31 Ondansetron Inj 2 Mg/Ml Inj 2 Ml IVP 07/04/25 17:30 Q6H PRN NAUSEA OR VOMITING Protocol Oseltamivir Phosphate 30 mg 06/06/25 09:00 06/07/25 09:30 Oseltamivir 30 Mg Capsule PO 06/11/25 18:44 30 mg DAILY GILLIAN Administration Sevelamer Carbonate 800 mg 06/05/25 08:00 06/07/25 09:29 Sevelamer Carbonate 800 Mg Tablet PO 07/05/25 07:59 800 mg TIDWM GILLIAN Administration Vitamin D 1,000 iu 06/05/25 09:00 06/07/25 09:29 Cholecalciferol (Vitamin D3) 1,000 Iu Tablet PO 07/05/25 08:59 1,000 iu QDAY GILLIAN Administration Plan # Acute hypoxic respiratory failure #Community-acquired pneumonia #COVID penumonitis #Influenza Initial sx of progressive shortness of breath, hypoxic, started on OxyMask, on BiPAP Patient was COVID positive at [facility], bedside COVID negative Influenza A and B positive PNA at b/l lung bases seen on CXR COVID PCR + However patient already on tamiflu for influenza, due to interactions remdesivir and steroids withheld at this time and currently off window for treatment as per CDC. Patient overall clinically improving. Given DuoNeb, Zosyn x1, Azitrhomycin x1 in ED Completed course Azitrhomycin 500 mg IV QD x 3 days (06/04 - 06/06) Plan: - Ceftriaxone 1 g IV QD x 5 days (06/04 - 06/08), Tamiflu 30 mg QD x 5 days (06/04 - 06/08) (renal dosing) - Lasix as below - Duonebs q6h PRN - supplemental O2 PRN #Sepsis - resolved Temp > 100.4 (Tmax 101.3), HR > 90 (max 93), RR > 20 (max 35) + suspected source of infection (PNA, UTI) Fluids NOT given as pt appeared to be fluid overloaded (IVC non-collapsible, elevated BNP, and imaging findings of vascular congestion and perihilar edema), has ESRD and missed HD 06/04 06/05: patient afebrile, no leukoctysosis. 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 Dumont Plan: - Hemodialysis per Dr. Dumont - Continued home Sevelamer 80 mg TID w/ meals - Consulted nephrology (Dr. Dumont), appreciate recs - Avoid nephrotoxic agents - Renally dose meds #CAD s/p CABG Denies chest pain/pressure Lipid panel WNL Plan: - Continue home ASA 81 mg daily, atorvastatin 20 mg QHS #Troponinemia - downtrending Denies chest pain/pressure Trop 0.293 --> 0.241 Most likely 2/2 demand ischemia i/s/o sepsis Plan: - CTM for s/sx of cardiac injury, but no need to trend troponins as they are now downtrending #UTI Hx of recurrent UTIs (3 within the past year) Denies burning with urination, increased urgency No retention of urine on bladder scan Plan: - Ceftriaxone 1 g IV QD x 5 days (06/04 - 06/08) - Pending urine cx #Hepatits B core IgM Ab positive Denies abdominal sx, not jaundiced, no AMS Hepatitis B antigen nonreactive, Hepatitis B Ab (immune) nonreactive, Hepatitis B core IgM Ab reactive AST 41, ALT WNL, alk phos WNL, total bili WNL. PT 12.5, INR and PTT WNL Window period, recent hep B infection Plan: - Repeat Hepatitis B panel in several weeks to confirm trend. - CTM symptoms, LFTs #Insulin-dependent DM Initial BG 143 A1C 6.9 Plan: - SSI #Macrocytic anemia On admit: Hgb 10.6, HCT 34.4, MCV 109 No anemia present on previous CBC 04/20/24 B12 1306 high, folate WNL, reticulocyte count WNL, TSH WNL Most likely secondary to ESRD on HD - CTM with daily CBC #Hyperkalemia Plan: - Hemodialysis as above - CTM with CMP #Restless leg syndrome Plan: - Held home pramipexole i/s/o CHF / fluid overload Dispo: PNA and CHF tx, HD - plan to d/c 06/08 Diet: Cardiac Bowel Reg: Docusate VTE ppx: Heparin 5000U subQ BID GI ppx: none Code status: DNR/DNI Plan discussed with Dr. Winter and Dr. Jone Zhou MD PGY1 Attending Provider Attestation/Addendum I have examined the patient, reviewed labs and imaging findings, discussed the case with the resident(s), and reviewed entered orders. I agree with the plan of care as outlined in this note, with these additional summaries/recommendations: Patient is a 85-year-old female with a medical history of ESRD on HD, diabetes mellitus type 2, CHF, asthma, hypotension, hyperlipidemia, and insomnia presents to [facility] emergency department on 06/04/2025 with chief complaint of progressively worsening shortness of breath over the last 4 days. Patient seen at bedside. No acute overnight events. She has no acute concerns today. She remains on supplemental oxygen 5L via nasal cannula. We will continue to wean 02 requirements. Patient diagnosed with acute hypoxic respiratory failure and sepsis (now resolved) which is multifactorial in nature. Influenza A and B+ and continue tamilfu renally dosed. Patient also found to have superimposed community-acquired bacterial pneumonia from most likely gram- negative rods. Continue IV antibiotics. Bedside COVID was negative on arrival although PCR returned positive on the following day. The decision was made to not give remdesivir/Decadron as patient is clinically improving. Patient diagnosed with sepsis on admission with endorgan damage elevated troponin. She did not receive the full 30 cc/kg given her history of CHF and ESRD. Chest x-ray shows moderate vascular congestion with perihilar edema. S/P BiPAP. Nephrology following for ESRD & inpatient hemodialysis. Avoid nephrotoxic agents and renally dose medications. Dialysis for preload reduction in setting of CHF. Patient is DNR confirmed by POLST and medical team in room. Troponins peaked and most likely secondary to demand ischemia. Continue home medications. Patient has history of hypotension, continue midodrine. Patient updated on the plan and agreement. Please see residents note for additional details and management. Dr. Jone MD
--- NOTE | 2025-06-07 18:15 | XR_ITS ---
Examination: Urinary bladder sonography complete TECHNIQUE: Wise scale sonographic images urinary bladder Date and time: June 07, 2025 1655 hours INDICATIONS: Unable to void 2 days. FINDINGS: Patient very uncooperative, unable to assess kidneys or bladder IMPRESSION: Nondiagnostic study secondary to patient not cooperating Consider CT scan abdomen and pelvis without contrast follow-up
[2025-06-07] MEDS: MIRTAZAPINE 15 MG TABLET PO (20:57)
[2025-06-07] MEDS: AZITHROMYCIN INJ 500 MG in SODIUM CHLORIDE 0.9% 250 ML 250 ML 250 MG IV (20:57)
[2025-06-07] MEDS: ATORVASTATIN CALCIUM 20 MG TABLET PO (20:57)
--- NOTE | 2025-06-07 22:27 | XR_ITS ---
Examination: Duplex scan of the upper extremity, unilateral left Date and time of exam: June 07, 2025, 1112 hours INDICATIONS: Left upper arm swelling and pain this week Technique: Duplex scan of the extremity veins using B-mode/grayscale imaging and Doppler spectral analysis and color flow Attention is directed to internal echogenicity, compression and augmentation involving these veins, color flow assessment, spectral analysis Findings: Major deep venous structures in the extremity demonstrate normal course and caliber. There is no evidence of deep vein thrombosis. Normal color flow and spectral analysis AV fistula patent No diagnostic visualization superficial cephalic and basilic veins Impression: No DVT demonstrated
--- NOTE | 2025-06-07 22:29 | PC.NURSE ---
MD Lopez notified that patient's left arm is very swollen, warm to touch and patient is holding it complaining of pain. said he will order an ultrasound
[2025-06-07] MEDS: HYDROcodone/APAP 5/325 TABLET 1 TAB PO (22:35)
[2025-06-08] VITALS (15 sets, daily range): BP systolic 91–127; BP diastolic 44–58; PULSE 64–89; RESP 19–27; TEMP 36.1–36.6; O2SAT 94–99; BMI 21.7
[2025-06-08] MEDS: MIDODRINE 5 MG TABLET PO ×3 (05:42→21:15)
[2025-06-08 06:40] LABS: Basophils # (Auto) 0.0 Thou/mm3 (0.0-0.2); Basophils % (Auto) 1 % (0-2.5); Eosinophils # (Auto) 0.1 Thou/mm3 (0.0-0.5); Eosinophils % (Auto) 2 % (0-10); Hematocrit 35.7 % (36.0-46.0); Hemoglobin 11.0 g/dL (12.0-16.0); Immature Granulocytes Auto 0.02 Thou/mm3 (0.00-0.00); Lymphocytes # (Auto) 1.2 Thou/mm3 (1.0-4.8); Lymphocytes % (Auto) 33 % (10-50); Mean Corpuscular HGB Conc 30.8 g/dl (31.0-37.0); Mean Corpuscular Hemoglobin 33.4 pg (25.0-35.0); Mean Corpuscular Volume 109 fL (80-100); Monocytes # (Auto) 0.3 Thou/mm3 (0.0-0.8); Monocytes % (Auto) 9 % (0-12); Neutrophils # (Auto) 2.1 Thou/mm3 (1.8-7.7); Neutrophils % (Auto) 55 % (37-80); Nucleated Red Blood Cell # 0.00 Thou/mm3 (0.00-0.00); Nucleated Red Blood Cell % 0 /100 WBC (0); Platelet Count 100 Thou/mm3 (140-440); RDW Standard Deviation 65.5 fL (36.4-46.3); Red Blood Count 3.29 Miln/mm3 (4.00-5.20); White Blood Count 3.8 Thou/mm3 (3.6-11.0)
[2025-06-08 07:16] LABS: Alanine Aminotransferase 15 U/L (10-49); Albumin, Serum 3.7 gm/dL (3.4-4.8); Albumin/Globulin Ratio 1.9 (1.2-2.2); Alkaline Phosphatase 80 U/L (46-116); Anion Gap 13 (7-16); Aspartate Amino Transferase 35 U/L (0-34); BUN/Creatinine Ratio 7 Ratio (12-20); Bilirubin,Total 0.4 mg/dL (0.3-1.2); Blood Urea Nitrogen 23 mg/dL (9-23); Calcium 9.4 mg/dL (8.3-10.6); Calcium (Corrected) 9.6 mg/dL (8.5-10.1); Carbon Dioxide 25.9 mMol/L (20.0-31.0); Chloride 99 mMol/L (98-107); Creatinine (Component) 3.4 mg/dL (0.6-1.3); Estimated Creatinine Clearance 8.4 mL/min (>60); Globulin 1.9 gm/dL (2.3-3.5); Glucose 78 mg/dL (74-106); Magnesium 1.8 mg/dL (1.6-2.6); Osmolality,Calculated 278 (275-295); Phosphorous 3.7 mg/dL (2.4-5.1); Potassium 4.0 mMol/L (3.4-5.1); Sodium 138 mMol/L (136-145); Total Protein 5.6 gm/dL (5.7-8.2); eGFR 13 See Note
[2025-06-08] MEDS: SEVELAMER CARBONATE 800 MG TABLET PO ×3 (07:25→16:58)
[2025-06-08] MEDS: FUROSEMIDE INJ 10 MG/ML 4ML VIAL 40 MG IVP (09:02)
[2025-06-08] MEDS: cefTRIAXone/D5w 1gm IV premix 1 GM/50 ML BAG IV (09:04)
[2025-06-08] MEDS: CHOLECALCIFEROL (Vitamin D3) 1,000 IU TABLET 1000 IU PO (09:04)
[2025-06-08] MEDS: ASPIRIN EC 81 MG TABEC PO (09:04)
[2025-06-08] MEDS: HEPARIN SOD INJ 5000 UNIT/ML VIAL SC ×2 (09:04→21:16)
[2025-06-08] MEDS: OSELTAMIVIR 30 MG CAPSULE PO (09:06)
--- NOTE | 2025-06-08 09:30 | PC.SS ---
[id number] and Dr. Zhou met with pt at bedside and after Dr. Zhou's evaluation, it was determined that pt will not go home today due to her high use of O2. Pt is at 5-6L of O2 along with pain. At this time, pt will remain admitted. ASW called [facility] to ask about her O2 use and it was reported pt uses 2-3L of O2- no more than that.
--- NOTE | 2025-06-08 09:49 | ESPR_ITS ---
<Statement entered by Suraj Bergman MD - 06/08/25 21:35> Patient was examined and case was reviewed with team including attending physician. Note reviewed, I agree with most of its contents and agree with the patient's care as documented by Dr. Zhou Patient seen today at the bedside found awake, alert, orientedx3. No overnight events reported. Vital signs stable at this time, on 6L of O2 at this time. Patients baseline 3L home O2. Currently admitted for Covid pneumonitis and Influenza A and B. Will continue Abx at this time as well as Tamiflu. Patient to continue with scheduled HD. Case discussed with my attending Dr. Coco Bergman MD PGY-2 Documentation for date of: 06/08/25 Subjective Subjective Interval history: Overnight, patient had left arm swelling, US Doppler LUE showed no DVT. Patient reports b/l UE weakness but is able to lift both arms without drift. Denies left arm pain. Left arm is site of fistula for HD. Patient examined at bedside. Today she is on 6L O2 NC, reports productive cough, continued shortness of breath. Per Diandra Rg, patient on 2-3L home O2. Exam Vital Signs Temp Pulse Resp BP Pulse Ox O2 Del Method O2 Flow Rate 97.3 F 76 19 127/54 L 96 Nasal Cannula 5 06/08/25 08:00 06/08/25 09:02 06/08/25 08:00 06/08/25 09:02 06/08/25 08:00 06/08/25 08:00 06/08/25 08:00 FiO2 40 06/06/25 11:17 Narrative Exam General: Elderly female, appears stated age, no acute distress Eye: PERRL, EOMI, normal conjunctiva, no scleral icterus HENT: Normocephalic, atraumatic, normal hearing, moist oral mucosa Neck: Supple, non-tender, no JVD, no lymphadenopathy Lungs: spO2 98% on 6L NC, no crackles appreciated, symmetric chest rise, no use of accessory muscles. Heart: Normal S1 and S2, no S3 or S4 appreciated. Normal rate and regular rhythm, no murmurs, rubs gallops, or edema. Peripheral pulses intact bilaterally, capillary refill brisk distally. 1+ b/l LE edema noted. Fistula of left arm, warm, non-tender, no erythema. Abdomen: Soft, non-tender, non-distended, normal bowel sounds. No guarding or rebound tenderness. Musculoskeletal: Normal range of motion and strength, no tenderness or swelling Skin: Skin is warm, dry, no rashes or lesions. Neurologic: Alert, awake and oriented x3. CN II-XII grossly intact. No focal neuro deficits. 5/5 strength b/l UE. Psychiatric: Cooperative, appropriate mood and affect Objective Labs 06/09/25 06:29 06/09/25 06:29 Labs: Laboratory Results - last 24 hr 06/08/25 05:42 WBC 3.8 RBC 3.29 L Hgb 11.0 L Hct 35.7 L MCV 109 H MCH 33.4 MCHC 30.8 L RDW Std Deviation 65.5 H Plt Count 100 L Neut % (Auto) 55 Lymph % (Auto) 33 [place] % (Auto) 9 Eos % (Auto) 2 Baso % (Auto) 1 Neut # (Auto) 2.1 Lymph # (Auto) 1.2 [place] # (Auto) 0.3 Eos # (Auto) 0.1 Baso # (Auto) 0.0 Immature Gran # (Auto) 0.02 H Absolute Nucleated RBC 0.00 Immature Gran % 1 H Nucleated RBC % 0 Sodium 138 Potassium 4.0 Chloride 99 Carbon Dioxide 25.9 Anion Gap 13 BUN 23 Creatinine 3.4 H D Estim Creat Clear Calc 8.4 L eGFR 13 L* BUN/Creatinine Ratio 7 L Glucose 78 Calculated Osmolality 278 Calcium 9.4 Corrected Calcium 9.6 Phosphorus 3.7 Magnesium 1.8 Total Bilirubin 0.4 AST 35 H ALT 15 Alkaline Phosphatase 80 Total Protein 5.6 L Albumin 3.7 Globulin 1.9 L Albumin/Globulin Ratio 1.9 ABG Interpretation ABG results: 06/04/25 15:40 ABG pH 7.38 ABG pCO2 52 H ABG pO2 148 H ABG HCO3 31 H ABG O2 Saturation 100 H ABG Base Excess 5 H Quality Measures Quality Measures VTE prophylaxis Advance care planning discussed with:: patient Assessment & Plan Assessment Current Active Medications: Generic Name Dose Route Start Last Admin Trade Name Freq PRN Reason Stop Dose Admin Acetaminophen 650 mg 06/04/25 17:31 Acetaminophen 325 Mg Tablet PO 07/04/25 17:30 Q6H PRN Fever >101.5 Acetaminophen 650 mg 06/04/25 17:31 Acetaminophen 325 Mg Tablet PO 07/04/25 17:30 Q6H PRN PAIN SCALE 1-3 (mild Hydrocodone Bitart/Acetaminophen 1 tab 06/04/25 17:31 06/07/25 22:35 Hydrocodone/Apap 5/325 Tablet PO 06/09/25 17:30 1 tab Q4HR PRN Administration PAIN SCALE 4-6 (Moderate Albuterol/Ipratropium 3 ml 06/07/25 11:56 Albuterol/Ipratropium (Duoneb) Rt [place] 3 Ml Nebu INH 07/07/25 12:59 Q6HRRT PRN SHORTNESS OF BREATH OR WHEEZE Aspirin 81 mg 06/04/25 21:00 06/08/25 09:04 Aspirin Ec 81 Mg Tabec PO 07/04/25 20:59 81 mg QDAY GILLIAN Administration Atorvastatin Calcium 20 mg 06/05/25 21:00 06/07/25 20:57 Atorvastatin Calcium 20 Mg Tablet PO 07/05/25 20:59 20 mg HS GILLIAN Administration Dextrose 25 ml 06/04/25 19:37 Dextrose 50%-Water Inj 50 Ml Syringe IV 07/04/25 19:36 Q15MIN PRN BG 50-70 responsive npo pt Dextrose 50 ml 06/04/25 19:37 Dextrose 50%-Water Inj 50 Ml Syringe IV 07/04/25 19:36 Q15MIN PRN BG <50 OR BG <70 & pt unresponsive Docusate Sodium 100 mg 06/04/25 17:31 Docusate Sod 100 Mg Capsule PO 07/04/25 17:30 QDAY PRN CONSTIPATION Protocol Furosemide 40 mg 06/04/25 21:00 06/08/25 09:02 Furosemide Inj 10 Mg/Ml 4ml Vial IVP 07/04/25 20:59 40 mg QDAY GILLIAN Administration Glucagon 1 mg 06/04/25 19:37 Glucagon Inj 1 Mg Vial IM Q15MIN PRN BG <70, and no IV access Heparin Sodium (Porcine) 5,000 unit 06/04/25 17:45 06/08/25 09:04 Heparin Sod Inj 5000 Unit/Ml Vial SC 06/18/25 17:44 5,000 unit Q12HR GILLIAN Administration Heparin Sodium (Porcine) 3,700 unit 06/05/25 16:35 06/06/25 10:40 Heparin Sod Inj 1000 Unit/Ml Vial 10 Ml INDWELLCAT 06/19/25 16:34 3,700 unit X1 PRN Administration DIALYSIS Ceftriaxone Sodium/Dextrose 1 gm in 50 mls @ 100 mls/hr 06/04/25 18:08 06/08/25 09:04 Rocephin/D5w 1gm Iv Premix IV 06/11/25 18:07 100 mls/hr QDAY GILLIAN Administration Insulin Human Lispro 0 unit 06/07/25 07:30 06/08/25 07:46 Insulin Lispro (Admelog) 1 Unit/0.01 Ml Unit SC 07/07/25 07:29 Not Given ACHS GILLIAN Protocol Midodrine 5 mg 06/04/25 22:00 06/08/25 05:42 Midodrine 5 Mg Tablet PO 07/04/25 21:59 5 mg TID GILLIAN Administration Mirtazapine 15 mg 06/05/25 21:00 06/07/25 20:57 Mirtazapine 15 Mg Tablet PO 07/05/25 20:59 15 mg HS GILLIAN Administration Ondansetron HCl 4 mg 06/04/25 17:31 Ondansetron Inj 2 Mg/Ml Inj 2 Ml IVP 07/04/25 17:30 Q6H PRN NAUSEA OR VOMITING Protocol Oseltamivir Phosphate 30 mg 06/06/25 09:00 06/08/25 09:06 Oseltamivir 30 Mg Capsule PO 06/11/25 18:44 30 mg DAILY GILLIAN Administration Sevelamer Carbonate 800 mg 06/05/25 08:00 06/08/25 07:25 Sevelamer Carbonate 800 Mg Tablet PO 07/05/25 07:59 800 mg TIDWM GILLIAN Administration Vitamin D 1,000 iu 06/05/25 09:00 06/08/25 09:04 Cholecalciferol (Vitamin D3) 1,000 Iu Tablet PO 07/05/25 08:59 1,000 iu QDAY GILLIAN Administration Plan # Acute hypoxic respiratory failure #Community-acquired pneumonia #COVID penumonitis #Influenza Initial sx of progressive shortness of breath, hypoxic, started on OxyMask, on BiPAP On home O2 2-3L Patient was COVID positive at [facility], bedside COVID negative Influenza A and B positive PNA at b/l lung bases seen on CXR COVID PCR + However patient already on tamiflu for influenza, due to interactions remdesivir and steroids withheld at this time and currently off window for treatment as per CDC. Patient overall clinically improving. Given DuoNeb, Zosyn x1, Azitrhomycin x1 in ED Completed course Azitrhomycin 500 mg IV QD x 3 days (06/04 - 06/06) Plan: - Ceftriaxone 1 g IV QD x 5 days (06/04 - 06/08), Tamiflu 30 mg QD x 5 days (06/04 - 06/08) (renal dosing) - Lasix as below - Albuterol inhaler q4h PRN, Budesonide inh BID - Chest physiotherapy - supplemental O2 PRN #Sepsis - resolved Temp > 100.4 (Tmax 101.3), HR > 90 (max 93), RR > 20 (max 35) + suspected source of infection (PNA, UTI) Fluids NOT given as pt appeared to be fluid overloaded (IVC non-collapsible, elevated BNP, and imaging findings of vascular congestion and perihilar edema), has ESRD and missed HD 06/04 06/05: patient afebrile, no leukoctysosis. RR continues to be >20 (max 23) + source of infxn -- no longer meets SIRS criteria Plan: - Tylenol PRN for fever - Pending blood cx x2 (NGTD) - See below for abx #Acute CHF exacerbation - improving Vascular congestion and peihilar edema seen on CXR BNP >3280 Decreasing O2 requirements Plan: - Hemodialysis - Lasix 40 mg IV QD - Pending TTE - Strict I&Os (patient makes urine, has pure wick to measure urine output) - Daily weights - Replete electrolytes (keep Mg >2, K >4) #ESRD on HD MWF Missed dialysis 06/04 On admit: BUN 42, Cr 4 Ophthalmic Surgeon: Dr. Dumont Left arm swelling, warmth 06/07 overnight. US LUE showed no DVT. Plan: - Hemodialysis per Dr. Dumont - Continued home Sevelamer 80 mg TID w/ meals - Consulted nephrology (Dr. Dumont), appreciate recs - Avoid nephrotoxic agents - Renally dose meds #CAD s/p CABG Denies chest pain/pressure Lipid panel WNL Plan: - Continue home ASA 81 mg daily, atorvastatin 20 mg QHS #Troponinemia - downtrending Denies chest pain/pressure Trop 0.293 --> 0.241 Most likely 2/2 demand ischemia i/s/o sepsis Plan: - CTM for s/sx of cardiac injury, but no need to trend troponins as they are now downtrending #UTI Hx of recurrent UTIs (3 within the past year) Denies burning with urination, increased urgency No retention of urine on bladder scan Plan: - Ceftriaxone 1 g IV QD x 5 days (06/04 - 06/08) - Pending urine cx #Hepatits B core IgM Ab positive Denies abdominal sx, not jaundiced, no AMS Hepatitis B antigen nonreactive, Hepatitis B Ab (immune) nonreactive, Hepatitis B core IgM Ab reactive AST 41, ALT WNL, alk phos WNL, total bili WNL. PT 12.5, INR and PTT WNL Window period, recent hep B infection Plan: - Repeat Hepatitis B panel in several weeks to confirm trend. - CTM symptoms, LFTs #Insulin-dependent DM Initial BG 143 A1C 6.9 Plan: - SSI #Macrocytic anemia On admit: Hgb 10.6, HCT 34.4, MCV 109 No anemia present on previous CBC 04/20/24 B12 1306 high, folate WNL, reticulocyte count WNL, TSH WNL Most likely secondary to ESRD on HD - CTM with daily CBC #Hyperkalemia Plan: - Hemodialysis as above - CTM with CMP #Restless leg syndrome Plan: - Held home pramipexole i/s/o CHF / fluid overload Dispo: PNA and CHF tx, HD - plan to d/c 06/08 Diet: Cardiac Bowel Reg: Docusate VTE ppx: Heparin 5000U subQ BID GI ppx: none Code status: DNR/DNI Plan discussed with Dr. Winter and Dr. Coco Zhou MD PGY1 Attending Provider Attestation/Addendum I, Leonie Sepulveda DO, attest that I was physically present for the oliva portions of the service and evaluated the patient with the resident and I reviewed and discussed the case with the resident and agree with the resident's findings and plans of care as documented above Patient seen and evaluated this AM. She is currently on 5LN/C and remains dyspneic with breaks in sentence. Patient wears supplemental O2 on a daily basis about 2-3L/NC. Per son at bedside, patient was able to stand with PT at SNF. Will have PT work with patient while inpatient. Will order incentive spirometer. Will order albuterol inhaler and budesonide inhaler. Continue with abx and titrate O2 as tolerated.
[2025-06-08] MEDS: BUDESONIDE RT 0.25 MG/2 ML NEBU INH ×2 (10:18→18:32)
--- NOTE | 2025-06-08 13:44 | PD.NEPHCONS ---
History of Present Illness Data of Consult Requesting Physician: Indio Becerril MD Primary Care Provider: Physician No Primary/Family Consult Narrative History of present illness: 85 y/o female with PMH of CHF, insulin-dependent DM, CAD s/p CABG, ESRD on HD MWF, hypertension and asthma who presented to the ED on 06/04 for progressive shortness of breath and productive cough x4 days. Per ED note, she had a fever and was COVID positive prior to coming to the ED by ambulance. She denies hemoptysis, chest pain/pressure, headache, acute changes in vision, leg swelling, N/V, abdominal pain, or changes in bowel movements. She missed her dialysis cc:: cc: Indio Becerril MD Meds Home Medications and Allergies Home Medications ?Medication ?Instructions ?Recorded ?Confirmed ?Type acetaminophen 325 mg tablet 650 mg PO Q6H PRN pain (scale 06/04/25 06/04/25 History (Tylenol) score 4-6) albuterol sulfate 2.5 mg/3 mL 2.5 mg inhalation Q6H PRN 06/04/25 06/04/25 History (0.083 %) solution for nebulization shortness of breath or wheezing aspirin 81 mg capsule 81 mg PO QDAY 06/04/25 06/04/25 History atorvastatin 20 mg tablet 20 mg PO HS 06/04/25 06/04/25 History bisacodyl 10 mg rectal suppository 10 mg NV QDAY PRN constipation 06/04/25 06/04/25 History (Dulcolax (bisacodyl)) cholecalciferol (vitamin D3) 25 1,000 unit PO QDAY 06/04/25 06/04/25 History mcg (1,000 unit) capsule diphenhydramine 25 1 tab PO HS PRN insomnia 06/04/25 06/04/25 History mg-acetaminophen 500 mg tablet (Pain and Sleep) furosemide 20 mg tablet 20 mg PO DAILY 06/04/25 06/04/25 History magnesium hydroxide 400 mg/5 mL 30 ml PO Q72H PRN constipation 06/04/25 06/04/25 History oral suspension (Milk of Magnesia) midodrine 5 mg tablet 5 mg PO TID 06/04/25 06/04/25 History mirtazapine 15 mg tablet (Remeron) 15 mg PO HS 06/04/25 06/04/25 History polyethylene glycol 3350 17 gram 17 g PO QDAY 06/04/25 06/04/25 History oral powder packet (Miralax) pramipexole 0.25 mg tablet 0.25 mg PO HS 06/04/25 06/04/25 History sevelamer carbonate 800 mg tablet 800 mg PO TIDWMEAL 06/04/25 06/04/25 History sodium phosphates 19 gram-7 118 ml NV Q72H PRN constipation 06/04/25 06/04/25 History gram/118 mL enema vitamin B complex-vitamin C-folic 1 tab PO QDAY 06/04/25 06/04/25 History acid 0.8 mg tablet Allergies Allergy/AdvReac Type Severity Reaction Status Date / Time pantoprazole (From Protonix) Allergy Verified 04/20/24 12:02 Sulfa (Sulfonamide Allergy Verified 04/20/24 12:02 Antibiotics) Exam Vital Signs Temp Pulse Resp BP Pulse Ox O2 Del Method O2 Flow Rate 97 F 78 23 H 113/44 L 95 Nasal Cannula 5 06/08/25 12:00 06/08/25 13:18 06/08/25 12:00 06/08/25 13:18 06/08/25 12:00 06/08/25 12:00 06/08/25 12:00 FiO2 40 06/06/25 11:17 Results Labs 06/09/25 06:29 06/09/25 06:29 Labs: Short CBC 06/08/25 Range/Units 05:42 WBC 3.8 (3.6-11.0) Thou/mm3 Hgb 11.0 L (12.0-16.0) g/dL Hct 35.7 L (36.0-46.0) % Plt Count 100 L (140-440) Thou/mm3 BMP 06/08/25 05:42 Sodium 138 Potassium 4.0 Chloride 99 Carbon Dioxide 25.9 BUN 23 Creatinine 3.4 H D Glucose 78 Calcium 9.4 Liver Function 06/08/25 Range/Units 05:42 Total Bilirubin 0.4 (0.3-1.2) mg/dL AST 35 H (0-34) U/L ALT 15 (10-49) U/L Alkaline Phosphatase 80 (46-116) U/L Albumin 3.7 (3.4-4.8) gm/dL ABG Interpretation ABG results: 06/04/25 15:40 ABG pH 7.38 ABG pCO2 52 H ABG pO2 148 H ABG HCO3 31 H ABG O2 Saturation 100 H ABG Base Excess 5 H Assessment & Plan Assessment and plan (1) Hypoxia: Status: Acute (2) Influenza: Status: Acute (3) COVID-19: Status: Acute (4) Community acquired pneumonia: Status: Acute (5) Congestive heart failure: Status: Acute (6) Coronary artery disease: Status: Acute (7) Status post aorto-coronary artery bypass graft: Status: Acute (8) ESRD (end stage renal disease) on dialysis: Status: Acute Assessment and plan: Pt is on dialyis MWF schedule will continue dialysis 3 times a week
--- NOTE | 2025-06-08 14:17 | PC.SS ---
Rounding note: Optimizing oxygen at 5L. Patient to return to SNF at discharge.
[2025-06-08] MEDS: ATORVASTATIN CALCIUM 20 MG TABLET PO (21:16)
[2025-06-08] MEDS: MIRTAZAPINE 15 MG TABLET PO (21:16)
[2025-06-08] MEDS: DOCUSATE SOD 100 MG CAPSULE PO (21:19)
[2025-06-08] MEDS: FAMOTIDINE INJ 10 MG/ML VIAL 2 ML 20 MG IVP (22:09)
[2025-06-09] VITALS (31 sets, daily range): BP systolic 94–137; BP diastolic 40–91; PULSE 59–88; RESP 16–35; TEMP 36–36.8; O2SAT 92–99
[2025-06-09] MEDS: MIDODRINE 5 MG TABLET PO ×3 (05:48→21:07)
[2025-06-09] MEDS: BUDESONIDE RT 0.25 MG/2 ML NEBU INH ×2 (06:27→19:53)
[2025-06-09 07:01] LABS: Basophils # (Auto) 0.0 Thou/mm3 (0.0-0.2); Basophils % (Auto) 0 % (0-2.5); Eosinophils # (Auto) 0.0 Thou/mm3 (0.0-0.5); Eosinophils % (Auto) 1 % (0-10); Hematocrit 36.2 % (36.0-46.0); Hemoglobin 11.3 g/dL (12.0-16.0); Immature Granulocytes Auto 0.01 Thou/mm3 (0.00-0.00); Lymphocytes # (Auto) 1.6 Thou/mm3 (1.0-4.8); Lymphocytes % (Auto) 35 % (10-50); Mean Corpuscular HGB Conc 31.2 g/dl (31.0-37.0); Mean Corpuscular Hemoglobin 33.0 pg (25.0-35.0); Mean Corpuscular Volume 106 fL (80-100); Monocytes # (Auto) 0.4 Thou/mm3 (0.0-0.8); Monocytes % (Auto) 9 % (0-12); Neutrophils # (Auto) 2.5 Thou/mm3 (1.8-7.7); Neutrophils % (Auto) 55 % (37-80); Nucleated Red Blood Cell # 0.00 Thou/mm3 (0.00-0.00); Nucleated Red Blood Cell % 0 /100 WBC (0); Platelet Count 131 Thou/mm3 (140-440); RDW Standard Deviation 62.5 fL (36.4-46.3); Red Blood Count 3.42 Miln/mm3 (4.00-5.20); White Blood Count 4.6 Thou/mm3 (3.6-11.0)
--- NOTE | 2025-06-09 07:30 | ESPR_ITS ---
<Statement entered by Suraj Bergman MD - 06/09/25 21:26> Patient was examined and case was reviewed with team including attending physician. Note reviewed, I agree with most of its contents and agree with the patient's care as documented by Dr. Zhou Patient seen today at the bedside. No overnight events reported. Vital signs stable at this time. Patient already completed IV Abx therapy and tamiflu for pneumonia. UCx grew VRE and Zyvox was started. Suraj Bergman MD PGY-2 Documentation for date of: 06/09/25 Subjective Subjective Interval history: Continues to be tachypneic to 30s On 6L O2 NC (on home 2-3L) BUN 32, Cr 4.2, getting dialysis MWF Patient evaluated at bedside. Was able to eat breakfast this a.m. Denies new symptoms. Continues to have shortness of breath. Dialysis planned for today Exam Vital Signs Temp Pulse Resp BP Pulse Ox O2 Del Method O2 Flow Rate 97.3 F 79 28 H 119/59 L 96 Nasal Cannula 6 06/09/25 04:20 06/09/25 06:27 06/09/25 06:27 06/09/25 05:48 06/09/25 06:27 06/09/25 04:20 06/09/25 06:27 FiO2 40 06/09/25 04:20 Narrative Exam General: Elderly female, appears stated age, no acute distress Eye: PERRL, EOMI, normal conjunctiva, no scleral icterus HENT: Normocephalic, atraumatic, normal hearing, moist oral mucosa Neck: Supple, non-tender, no JVD, no lymphadenopathy Lungs: spO2 appropriate 6L NC, no crackles appreciated, symmetric chest rise, no use of accessory muscles. Heart: Normal S1 and S2, no S3 or S4 appreciated. Normal rate and regular rhythm, no murmurs, rubs gallops, or edema. Peripheral pulses intact bilaterally, capillary refill brisk distally. 1+ b/l LE edema noted. Fistula of left arm, warm, non-tender, no erythema. Abdomen: Soft, non-tender, non-distended, normal bowel sounds. No guarding or rebound tenderness. Musculoskeletal: Normal range of motion and strength, no tenderness or swelling Skin: Skin is warm, dry, no rashes or lesions. Neurologic: Alert, awake and oriented x3. CN II-XII grossly intact. No focal neuro deficits. 5/5 strength b/l UE. Psychiatric: Cooperative, appropriate mood and affect Objective Labs 06/09/25 06:29 06/09/25 06:29 Labs: Laboratory Results - last 24 hr 06/08/25 06/09/25 05:42 06:29 WBC 4.6 RBC 3.42 L Hgb 11.3 L Hct 36.2 MCV 106 H MCH 33.0 MCHC 31.2 RDW Std Deviation 62.5 H Plt Count 131 L D Neut % (Auto) 55 Lymph % (Auto) 35 [place] % (Auto) 9 Eos % (Auto) 1 Baso % (Auto) 0 Neut # (Auto) 2.5 Lymph # (Auto) 1.6 [place] # (Auto) 0.4 Eos # (Auto) 0.0 Baso # (Auto) 0.0 Immature Gran # (Auto) 0.01 H Absolute Nucleated RBC 0.00 Immature Gran % 0 Nucleated RBC % 0 Sodium 138 Potassium 4.0 Chloride 99 Carbon Dioxide 25.9 Anion Gap 13 BUN 23 Creatinine 3.4 H D Estim Creat Clear Calc 8.4 L eGFR 13 L* BUN/Creatinine Ratio 7 L Glucose 78 Calculated Osmolality 278 Calcium 9.4 Corrected Calcium 9.6 Phosphorus 3.7 Magnesium 1.8 Total Bilirubin 0.4 AST 35 H ALT 15 Alkaline Phosphatase 80 Total Protein 5.6 L Albumin 3.7 Globulin 1.9 L Albumin/Globulin Ratio 1.9 ABG Interpretation ABG results: 06/04/25 15:40 ABG pH 7.38 ABG pCO2 52 H ABG pO2 148 H ABG HCO3 31 H ABG O2 Saturation 100 H ABG Base Excess 5 H Quality Measures Quality Measures VTE prophylaxis Advance care planning discussed with:: patient Assessment & Plan Assessment Current Active Medications: Generic Name Dose Route Start Last Admin Trade Name Freq PRN Reason Stop Dose Admin Acetaminophen 650 mg 06/04/25 17:31 Acetaminophen 325 Mg Tablet PO 07/04/25 17:30 Q6H PRN Fever >101.5 Acetaminophen 650 mg 06/04/25 17:31 Acetaminophen 325 Mg Tablet PO 07/04/25 17:30 Q6H PRN PAIN SCALE 1-3 (mild Hydrocodone Bitart/Acetaminophen 1 tab 06/04/25 17:31 06/07/25 22:35 Hydrocodone/Apap 5/325 Tablet PO 06/09/25 17:30 1 tab Q4HR PRN Administration PAIN SCALE 4-6 (Moderate Albuterol 2 puff 06/08/25 10:03 Albuterol Inh 8 Gm INH 07/08/25 10:02 Q4HR PRN SHORTNESS OF BREATH OR WHEEZE Aspirin 81 mg 06/04/25 21:00 06/08/25 09:04 Aspirin Ec 81 Mg Tabec PO 07/04/25 20:59 81 mg QDAY GILLIAN Administration Atorvastatin Calcium 20 mg 06/05/25 21:00 06/08/25 21:16 Atorvastatin Calcium 20 Mg Tablet PO 07/05/25 20:59 20 mg HS GILLIAN Administration Budesonide 0.25 mg 06/08/25 10:15 06/09/25 06:27 Budesonide Rt 0.25 Mg/2 Ml Nebu INH 07/08/25 10:14 0.25 mg BIDRT GILLIAN Administration Dextrose 25 ml 06/04/25 19:37 Dextrose 50%-Water Inj 50 Ml Syringe IV 07/04/25 19:36 Q15MIN PRN BG 50-70 responsive npo pt Dextrose 50 ml 06/04/25 19:37 Dextrose 50%-Water Inj 50 Ml Syringe IV 07/04/25 19:36 Q15MIN PRN BG <50 OR BG <70 & pt unresponsive Docusate Sodium 100 mg 06/04/25 17:31 06/08/25 21:19 Docusate Sod 100 Mg Capsule PO 07/04/25 17:30 100 mg QDAY PRN Administration CONSTIPATION Protocol Furosemide 40 mg 06/04/25 21:00 06/08/25 09:02 Furosemide Inj 10 Mg/Ml 4ml Vial IVP 07/04/25 20:59 40 mg QDAY GILLIAN Administration Glucagon 1 mg 06/04/25 19:37 Glucagon Inj 1 Mg Vial IM Q15MIN PRN BG <70, and no IV access Heparin Sodium (Porcine) 5,000 unit 06/04/25 17:45 06/08/25 21:16 Heparin Sod Inj 5000 Unit/Ml Vial SC 06/18/25 17:44 5,000 unit Q12HR GILLIAN Administration Heparin Sodium (Porcine) 3,700 unit 06/05/25 16:35 06/06/25 10:40 Heparin Sod Inj 1000 Unit/Ml Vial 10 Ml INDWELLCAT 06/19/25 16:34 3,700 unit X1 PRN Administration DIALYSIS Ceftriaxone Sodium/Dextrose 1 gm in 50 mls @ 100 mls/hr 06/04/25 18:08 06/08/25 09:34 Rocephin/D5w 1gm Iv Premix IV 06/11/25 18:07 Infused QDAY GILLIAN Infusion Albumin Human 25 gm in 100 mls @ 100 mls/min 06/09/25 07:13 Albuminar-25 Ivpb IV PRN PRN DIALYSIS Insulin Human Lispro 0 unit 06/07/25 07:30 06/08/25 20:08 Insulin Lispro (Admelog) 1 Unit/0.01 Ml Unit SC 07/07/25 07:29 Not Given ACHS GILLIAN Protocol Midodrine 5 mg 06/04/25 22:00 06/09/25 05:48 Midodrine 5 Mg Tablet PO 07/04/25 21:59 5 mg TID GILLIAN Administration Mirtazapine 15 mg 06/05/25 21:00 06/08/25 21:16 Mirtazapine 15 Mg Tablet PO 07/05/25 20:59 15 mg HS GILLIAN Administration Ondansetron HCl 4 mg 06/04/25 17:31 Ondansetron Inj 2 Mg/Ml Inj 2 Ml IVP 07/04/25 17:30 Q6H PRN NAUSEA OR VOMITING Protocol Oseltamivir Phosphate 30 mg 06/06/25 09:00 06/08/25 09:06 Oseltamivir 30 Mg Capsule PO 06/11/25 18:44 30 mg DAILY GILLIAN Administration Sevelamer Carbonate 800 mg 06/05/25 08:00 06/08/25 16:58 Sevelamer Carbonate 800 Mg Tablet PO 07/05/25 07:59 800 mg TIDWM GILLIAN Administration Vitamin D 1,000 iu 06/05/25 09:00 06/08/25 09:04 Cholecalciferol (Vitamin D3) 1,000 Iu Tablet PO 07/05/25 08:59 1,000 iu QDAY GILLIAN Administration Plan Ms. Baeza is 85 y/o female with PMH of CHF, insulin-dependent DM, CAD s/p CABG, ESRD on HD MWF, hypertension who presented to the ED from [facility] on 06/04 for progressive shortness of breath and productive cough x4 days. Admitted for AHRF and sepsis 2/2 CAP, COVID pneumonitis, influenza A and B, VRE UTI, management of acute CHF exacerbation. Getting HD MWF. #Acute hypoxic respiratory failure #Community-acquired pneumonia #COVID pneumonitis #Influenza Initial sx of progressive shortness of breath, hypoxic, started on OxyMask, on BiPAP On home O2 2-3L Patient was COVID positive at [facility], bedside COVID negative Influenza A and B positive PNA at b/l lung bases seen on CXR COVID PCR + However patient already on tamiflu for influenza, due to interactions remdesivir and steroids withheld at this time and currently off window for treatment as per CDC. Patient overall clinically improving. Given DuoNeb, Zosyn x1, Azitrhomycin x1 in ED Completed course Azitrhomycin 500 mg IV QD x 3 days (06/04 - 06/06), Ceftriaxone 1 g IV QD x 5 days (06/04 - 06/08), Tamiflu 30 mg QD x 5 days (06/04 - 06/08) Plan: - Holding lasix (see below) - Albuterol inhaler q4h PRN, Budesonide inh BID - Incentive spirometer - Chest physiotherapy - supplemental O2 PRN #VRE UTI Hx of recurrent UTIs (3 within the past year) Denies burning with urination, increased urgency Plan: - Linezolid 600 mg BID IV (06/09-06/15) #Sepsis - resolved Temp > 100.4 (Tmax 101.3), HR > 90 (max 93), RR > 20 (max 35) + suspected source of infection (PNA, UTI) Fluids NOT given as pt appeared to be fluid overloaded (IVC non-collapsible, elevated BNP, and imaging findings of vascular congestion and perihilar edema), has ESRD and missed HD 06/04 06/05: patient afebrile, no leukoctysosis. RR continues to be >20 (max 23) + source of infxn -- no longer meets SIRS criteria Plan: - Tylenol PRN for fever - Pending blood cx x2 (NGTD) - See below for abx #Acute CHF exacerbation Vascular congestion and peihilar edema seen on CXR BNP >3280 Plan: - Hemodialysis - Holding Lasix 40 mg IV QD (see below) - Pending TTE - Strict I&Os (patient makes urine, has pure wick to measure urine output) - Daily weights - Replete electrolytes (keep Mg >2, K >4) #ESRD on HD MWF Missed dialysis 06/04 On admit: BUN 42, Cr 4 Splitter Hand: Dr. Dumont Per Dr. Dumont, continue Lasix if patient making >200 mL urine per day. Pt has had max output 120 mL. Left arm swelling (site of fistula for HD), warmth 06/07 overnight. US LUE showed no DVT. Plan: - Hemodialysis per Dr. Dumont - Continued home Sevelamer 80 mg TID w/ meals - Holding lasix as pt is not making urine (< 200 mL / day - Consulted nephrology (Dr. Dumont), appreciate recs - Avoid nephrotoxic agents - Renally dose meds #CAD s/p CABG Denies chest pain/pressure Lipid panel WNL Plan: - Continue home ASA 81 mg daily, atorvastatin 20 mg QHS #Troponinemia - downtrending Denies chest pain/pressure Trop 0.293 --> 0.241 Most likely 2/2 demand ischemia i/s/o sepsis Plan: - CTM for s/sx of cardiac injury, but no need to trend troponins as they are now downtrending #Hepatits B core IgM Ab positive Denies abdominal sx, not jaundiced, no AMS Hepatitis B antigen nonreactive, Hepatitis B Ab (immune) nonreactive, Hepatitis B core IgM Ab reactive AST 41, ALT WNL, alk phos WNL, total bili WNL. PT 12.5, INR and PTT WNL Window period, recent hep B infection Plan: - Repeat Hepatitis B panel in several weeks to confirm trend. - CTM symptoms, LFTs #Insulin-dependent DM Initial BG 143 A1C 6.9 Plan: - SSI #Macrocytic anemia On admit: Hgb 10.6, HCT 34.4, MCV 109. No anemia present on previous CBC 04/20/24 Hgb stable B12 1306 high, folate WNL, reticulocyte count WNL, TSH WNL Most likely secondary to ESRD on HD - CTM with daily CBC #Hyperkalemia Plan: - Hemodialysis as above - CTM with CMP #Restless leg syndrome Plan: - Held home pramipexole i/s/o CHF / fluid overload Dispo: PNA and CHF tx, HD Diet: Cardiac Bowel Reg: Docusate VTE ppx: Heparin 5000U subQ BID GI ppx: none Code status: DNR/DNI Plan discussed with Dr. Winter and Dr. Coco Zhou MD PGY1 Attending Provider Attestation/Addendum Kim, Leonie Sepulveda, , attest that I was physically present for the oliva portions of the service and evaluated the patient with the resident and I reviewed and discussed the case with the resident and agree with the resident's findings and plans of care as documented above Patient seen and eval this a.m. She has noted to have significantly diminished breath sounds in the left lung le. She remains on 6 L nasal cannula. Patient reports feeling improved today. She patient was being set up for dialysis per the afternoon at time of my evaluation. Oropharynx appears to be dry. Will continue to titrate O2 as tolerated. VR enterococcus faecium positive in sputum, swtiched to linezolid.
[2025-06-09 07:40] LABS: Alanine Aminotransferase 13 U/L (10-49); Albumin, Serum 3.7 gm/dL (3.4-4.8); Albumin/Globulin Ratio 1.9 (1.2-2.2); Alkaline Phosphatase 83 U/L (46-116); Anion Gap 13 (7-16); Aspartate Amino Transferase 28 U/L (0-34); BUN/Creatinine Ratio 8 Ratio (12-20); Bilirubin,Total 0.4 mg/dL (0.3-1.2); Blood Urea Nitrogen 32 mg/dL (9-23); Calcium 9.6 mg/dL (8.3-10.6); Calcium (Corrected) 9.8 mg/dL (8.5-10.1); Carbon Dioxide 26.0 mMol/L (20.0-31.0); Chloride 98 mMol/L (98-107); Creatinine (Component) 4.2 mg/dL (0.6-1.3); Estimated Creatinine Clearance 6.8 mL/min (>60); Globulin 2.0 gm/dL (2.3-3.5); Glucose 120 mg/dL (74-106); Magnesium 2.2 mg/dL (1.6-2.6); Osmolality,Calculated 281 (275-295); Phosphorous 3.7 mg/dL (2.4-5.1); Potassium 4.2 mMol/L (3.4-5.1); Sodium 137 mMol/L (136-145); Total Protein 5.7 gm/dL (5.7-8.2); eGFR 10 See Note
[2025-06-09] MEDS: FUROSEMIDE INJ 10 MG/ML 4ML VIAL 40 MG IVP (08:18)
[2025-06-09] MEDS: SEVELAMER CARBONATE 800 MG TABLET PO ×3 (08:19→17:04)
[2025-06-09] MEDS: ASPIRIN EC 81 MG TABEC PO (08:19)
[2025-06-09] MEDS: CHOLECALCIFEROL (Vitamin D3) 1,000 IU TABLET 1000 IU PO (08:19)
[2025-06-09] MEDS: HEPARIN SOD INJ 5000 UNIT/ML VIAL SC ×2 (08:19→21:08)
[2025-06-09] MEDS: LINEZOLID 600 MG IVPB 600 MG/300 ML BAG 300 MG IV ×2 (08:58→21:08)
--- NOTE | 2025-06-09 11:47 | XR_ITS ---
Examination: AP chest single view Technique one AP portable sitting chest single view Date and time: June 09, 2025 1449 hours Comparison June 04, 2025 INDICATIONS: Shortness of breath today. FINDINGS: Prominent CHF Enlarged cardiac contour with vascular congestion and prominent perihilar edema Layered partially visualized left pleural fluid Cardiac leads stable position Right internal jugular dialysis catheter tip right atrium IMPRESSION: Prominent CHF
[2025-06-09] MEDS: ALBUMIN HUMAN 25% IVPB 25 GM/100 ML BTL IV (14:32)
[2025-06-09] MEDS: HEPARIN SOD INJ 1000 UNIT/ML VIAL 10 ML 3700 UNIT INDWELLCAT (15:17)
--- NOTE | 2025-06-09 16:39 | PC.SS ---
Rounding Note: Plan is switch patient's antibiotics. Patient receiving dialysis today. D/C within 1-2 days. PT evaluation is pending.
[2025-06-09] MEDS: ATORVASTATIN CALCIUM 20 MG TABLET PO (21:08)
[2025-06-09] MEDS: MIRTAZAPINE 15 MG TABLET PO (21:08)
[2025-06-10] VITALS (15 sets, daily range): BP systolic 97–140; BP diastolic 52–75; PULSE 73–88; RESP 20–30; TEMP 36–36.2; O2SAT 94–100; BMI 21.4
[2025-06-10] MEDS: BUDESONIDE RT 0.25 MG/2 ML NEBU INH ×2 (06:37→19:55)
--- NOTE | 2025-06-10 07:35 | ESPR_ITS ---
<Statement entered by Suraj Bergman MD - 06/11/25 15:18> Patient was examined and case was reviewed with team including attending physician. Note reviewed, I agree with most of its contents and agree with the patient's care as documented by Dr. Zhou Case discussed with my attending Dr. Coco Bergman MD PGY-2 Disclaimer: Despite multiple revisions, due to the dictation software being used, the document bellow may not be free of grammatical errors including phonetic/typographic errors. However, this does not deter from our commitment to providing health care in the patient's best interest in mind. Documentation for date of: 06/10/25 Subjective Subjective Interval history: NAEO Afebrile, continues to be tachypneic to 20s, on 4-6L O2 NC overnight, now on 5L spO2 96% Repeat CXR shows vascular congestion c/f prominent CHF, layered L pleural fluid Restarted lasix 40 mg daily today. Started Duoneb q6h, Mucomist q6h, guaifenasin BID corie + Chest physiotherapy corie now. Will reassess with imaging in the afternoon. Patient is constipated, started Docusate daily corie, Miralax daily corie, lactulose 20 g x1 this AM Patient reports continued shortness of breath, takes short shallow breaths. Denies chest pain. Exam Vital Signs Temp Pulse Resp BP Pulse Ox O2 Del Method O2 Flow Rate 96.8 F 79 20 131/59 H 99 Nasal Cannula 5 06/10/25 04:35 06/10/25 06:38 06/10/25 06:38 06/10/25 05:01 06/10/25 06:38 06/10/25 04:35 06/10/25 06:38 FiO2 40 06/09/25 15:47 Narrative Exam General: Elderly female, appears stated age, no acute distress Eye: PERRL, EOMI, normal conjunctiva, no scleral icterus HENT: Normocephalic, atraumatic, normal hearing, moist oral mucosa Neck: Supple, non-tender, no JVD, no lymphadenopathy Lungs: spO2 appropriate 5L NC, no crackles appreciated, shallow breaths, s ymmetric chest rise, no use of accessory muscles. Heart: Normal S1 and S2, no S3 or S4 appreciated. Normal rate and regular rhythm, no murmurs, rubs gallops, or edema. Peripheral pulses intact bilaterally, capillary refill brisk distally. 1+ b/l LE edema noted. Fistula of left arm, warm, non-tender, no erythema. Abdomen: Soft, non-tender, non-distended, normal bowel sounds. No guarding or rebound tenderness. Musculoskeletal: Normal range of motion and strength, no tenderness or swelling Skin: Skin is warm, dry, no rashes or lesions. Neurologic: Alert, awake and oriented x3. CN II-XII grossly intact. No focal neuro deficits. 5/5 strength b/l UE. Psychiatric: Cooperative, appropriate mood and affect Objective Labs 06/11/25 05:42 06/11/25 05:42 Labs: Laboratory Results - last 24 hr 06/09/25 06:29 Sodium 137 Potassium 4.2 Chloride 98 Carbon Dioxide 26.0 Anion Gap 13 BUN 32 H Creatinine 4.2 H* D Estim Creat Clear Calc 6.8 L eGFR 10 L* BUN/Creatinine Ratio 8 L Glucose 120 H D Calculated Osmolality 281 Calcium 9.6 Corrected Calcium 9.8 Phosphorus 3.7 Magnesium 2.2 Total Bilirubin 0.4 AST 28 ALT 13 Alkaline Phosphatase 83 Total Protein 5.7 Albumin 3.7 Globulin 2.0 L Albumin/Globulin Ratio 1.9 ABG Interpretation ABG results: 06/04/25 15:40 ABG pH 7.38 ABG pCO2 52 H ABG pO2 148 H ABG HCO3 31 H ABG O2 Saturation 100 H ABG Base Excess 5 H Quality Measures Quality Measures VTE prophylaxis Advance care planning discussed with:: patient Assessment & Plan Assessment Current Active Medications: Generic Name Dose Route Start Last Admin Trade Name Carmina PRN Reason Stop Dose Admin Acetaminophen 650 mg 06/04/25 17:31 Acetaminophen 325 Mg Tablet PO 07/04/25 17:30 Q6H PRN Fever >101.5 Acetaminophen 650 mg 06/04/25 17:31 Acetaminophen 325 Mg Tablet PO 07/04/25 17:30 Q6H PRN PAIN SCALE 1-3 (mild Albuterol 2 puff 06/08/25 10:03 Albuterol Inh 8 Gm INH 07/08/25 10:02 Q4HR PRN SHORTNESS OF BREATH OR WHEEZE Aspirin 81 mg 06/04/25 21:00 06/09/25 08:19 Aspirin Ec 81 Mg Tabec PO 07/04/25 20:59 81 mg QDAY CORIE Administration Atorvastatin Calcium 20 mg 06/05/25 21:00 06/09/25 21:08 Atorvastatin Calcium 20 Mg Tablet PO 07/05/25 20:59 20 mg HS CORIE Administration Budesonide 0.25 mg 06/08/25 10:15 06/10/25 06:37 Budesonide Rt 0.25 Mg/2 Ml Nebu INH 07/08/25 10:14 0.25 mg BIDRT CORIE Administration Dextrose 25 ml 06/04/25 19:37 Dextrose 50%-Water Inj 50 Ml Syringe IV 07/04/25 19:36 Q15MIN PRN BG 50-70 responsive npo pt Dextrose 50 ml 06/04/25 19:37 Dextrose 50%-Water Inj 50 Ml Syringe IV 07/04/25 19:36 Q15MIN PRN BG <50 OR BG <70 & pt unresponsive Docusate Sodium 100 mg 06/04/25 17:31 06/08/25 21:19 Docusate Sod 100 Mg Capsule PO 07/04/25 17:30 100 mg QDAY PRN Administration CONSTIPATION Protocol Glucagon 1 mg 06/04/25 19:37 Glucagon Inj 1 Mg Vial IM Q15MIN PRN BG <70, and no IV access Heparin Sodium (Porcine) 5,000 unit 06/04/25 17:45 06/09/25 21:08 Heparin Sod Inj 5000 Unit/Ml Vial SC 06/18/25 17:44 5,000 unit Q12HR CORIE Administration Heparin Sodium (Porcine) 3,700 unit 06/05/25 16:35 06/09/25 15:17 Heparin Sod Inj 1000 Unit/Ml Vial 10 Ml INDWELLCAT 06/19/25 16:34 3,700 unit X1 PRN Administration DIALYSIS Albumin Human 25 gm in 100 mls @ 100 mls/min 06/09/25 07:13 06/09/25 14:35 Albuminar-25 Ivpb IV Infused PRN PRN Infusion DIALYSIS Linezolid 600 mg in 300 mls @ 300 mls/hr 06/09/25 07:33 06/09/25 21:08 Zyvox Ivpb IV 06/16/25 07:32 300 mls/hr Q12HR CORIE Administration Protocol Insulin Human Lispro 0 unit 06/07/25 07:30 06/09/25 21:27 Insulin Lispro (Admelog) 1 Unit/0.01 Ml Unit SC 07/07/25 07:29 Not Given ACHS CORIE Protocol Midodrine 5 mg 06/04/25 22:00 06/10/25 05:01 Midodrine 5 Mg Tablet PO 07/04/25 21:59 Not Given TID CORIE Mirtazapine 15 mg 06/05/25 21:00 06/09/25 21:08 Mirtazapine 15 Mg Tablet PO 07/05/25 20:59 15 mg HS CORIE Administration Ondansetron HCl 4 mg 06/04/25 17:31 Ondansetron Inj 2 Mg/Ml Inj 2 Ml IVP 07/04/25 17:30 Q6H PRN NAUSEA OR VOMITING Protocol Sevelamer Carbonate 800 mg 06/05/25 08:00 06/09/25 17:04 Sevelamer Carbonate 800 Mg Tablet PO 07/05/25 07:59 800 mg TIDWM CORIE Administration Vitamin D 1,000 iu 06/05/25 09:00 06/09/25 08:19 Cholecalciferol (Vitamin D3) 1,000 Iu Tablet PO 07/05/25 08:59 1,000 iu QDAY CORIE Administration Plan Ms. Baeza is 85 y/o female with PMH of CHF, insulin-dependent DM, CAD s/p CABG, ESRD on HD MWF, hypertension who presented to the ED from [facility] on 06/04 for progressive shortness of breath and productive cough x4 days. Admitted for AHRF and sepsis 2/2 CAP, COVID pneumonitis, influenza A and B, VRE UTI, management of acute CHF exacerbation. Getting HD MWF. #Acute hypoxic respiratory failure #Community-acquired pneumonia #COVID pneumonitis #Influenza Initial sx of progressive shortness of breath, hypoxic, started on OxyMask, on BiPAP On home O2 2-3L Influenza A and B positive, COVID PCR positive PNA at b/l lung bases seen on CXR COVID PCR + However patient already on tamiflu for influenza, due to interactions remdesivir and steroids withheld at this time and currently off window for treatment as per CDC. Patient overall clinically improving. Completed course Azitrhomycin 500 mg IV QD x 3 days (06/04 - 06/06), Ceftriaxone 1 g IV QD x 5 days (06/04 - 06/08), Tamiflu 30 mg QD x 5 days (06/04 - 06/08) Repeat CXR shows vascular congestion c/f prominent CHF, layered L pleural fluid. Shallow breathing, decreased breath sounds on left. Plan: - Restarted lasix 40 mg daily - Albuterol inhaler q4h PRN, Budesonide inh BID - Duoneb q6h, Mucomist q6h, guaifenasin BID corie - Chest physiotherapy - Incentive spirometer - supplemental O2 PRN - Will repeat imaging this afternoon #VRE UTI Hx of recurrent UTIs (3 within the past year) Denies burning with urination, increased urgency Plan: - Linezolid 600 mg BID IV (06/09-06/15) #Sepsis - resolved Temp > 100.4 (Tmax 101.3), HR > 90 (max 93), RR > 20 (max 35) + suspected source of infection (PNA, UTI) Fluids NOT given as pt appeared to be fluid overloaded (IVC non-collapsible, elevated BNP, and imaging findings of vascular congestion and perihilar edema), has ESRD and missed HD 06/04 Continues to be afebrile, no leukocytosis Blood cx NGTD at 48h Plan: - CTM vitals - Tylenol PRN for fever #Acute CHF exacerbation Vascular congestion and peihilar edema seen on CXR BNP >3280 Plan: - Hemodialysis MWF - Restarted Lasix 40 mg IV QD - Pending TTE - Strict I&Os (patient makes urine, has pure wick to measure urine output) - Daily weights - Replete electrolytes (keep Mg >2, K >4) #ESRD on HD MWF Missed dialysis 06/04 On admit: BUN 42, Cr 4 Gas Blender: Dr. Dumont Left arm swelling (site of fistula for HD), warmth 06/07 overnight. US LUE showed no DVT. Plan: - Hemodialysis per Dr. Dumont - Continued home Sevelamer 80 mg TID w/ meals - Restarted lasix - Consulted nephrology (Dr. Dumont), appreciate recs - Avoid nephrotoxic agents - Renally dose meds #CAD s/p CABG Denies chest pain/pressure Lipid panel WNL Plan: - Continue home ASA 81 mg daily, atorvastatin 20 mg QHS #Troponinemia - downtrending Denies chest pain/pressure Trop 0.293 --> 0.241 Most likely 2/2 demand ischemia i/s/o sepsis Plan: - CTM for s/sx of cardiac injury, but no need to trend troponins as they are now downtrending #Hepatits B core IgM Ab positive Denies abdominal sx, not jaundiced, no AMS Hepatitis B antigen nonreactive, Hepatitis B Ab (immune) nonreactive, Hepatitis B core IgM Ab reactive AST 41, ALT WNL, alk phos WNL, total bili WNL. PT 12.5, INR and PTT WNL Window period, recent hep B infection Plan: - Repeat Hepatitis B panel in several weeks to confirm trend. - CTM symptoms, LFTs #Insulin-dependent DM Initial BG 143 A1C 6.9 Plan: - SSI #Macrocytic anemia On admit: Hgb 10.6, HCT 34.4, MCV 109. No anemia present on previous CBC 04/20/24 Hgb stable B12 1306 high, folate WNL, reticulocyte count WNL, TSH WNL Most likely secondary to ESRD on HD - CTM with daily CBC #Hyperkalemia Plan: - Hemodialysis as above - CTM with CMP #Constipation Plan: - Docusate daily corie, Miralax daily corie - Lactulose 20 g x1 #Restless leg syndrome Plan: - Held home pramipexole i/s/o CHF / fluid overload Dispo: PNA and CHF tx, HD Diet: Cardiac Bowel Reg: Docusate QD corie, Miralax daily corie VTE ppx: Heparin 5000U subQ BID GI ppx: none Code status: DNR/DNI Plan discussed with Dr. Winter and Dr. Coco Zhou MD PGY1 Attending Provider Attestation/Addendum I, Leonie Sepulveda DO, attest that I was physically present for the oliva portions of the service and evaluated the patient with the resident and I reviewed and discussed the case with the resident and agree with the resident's findings and plans of care as documented above Patient seen and evaluated this AM. CXR appears to have worsening opacification of Left lung le. Case discussed with interlocking and signal mechanic, suspect mucous plug as bedside US showed minimal pleural fluid. Patient started on mucolytics, mucomyst with breathing treatments and chest physio. Will obtain CT chest and repeat CXR in AM. Patient is comfortable on 6L. breath sounds noted with mild rhonchi noted in left lung field. Will reach out to patient's son regarding possible bronchoscopy if respiratory status does not improve.
--- NOTE | 2025-06-10 07:48 | XR_ITS ---
Examination: AP chest single view Technique one AP portable upright chest single view Date and time: June 10, 2025 0804 hours Comparison June 09, 2025 INDICATIONS: Shortness of breath today. FINDINGS: Total opacification left hemithorax Enlarged cardiac contour with prominent vascular congestion and perihilar edema Dialysis catheter cardiac leads satisfactory position IMPRESSION: Moderate heart failure Extensive pneumonia and pleural disease left hemithorax, recommend ultrasound left hemithorax follow-up
--- NOTE | 2025-06-10 08:12 | PC.SS ---
Updated clinicals submitted to [facility]. Response pending.
[2025-06-10] MEDS: SEVELAMER CARBONATE 800 MG TABLET PO ×3 (08:21→17:19)
[2025-06-10] MEDS: HEPARIN SOD INJ 5000 UNIT/ML VIAL SC ×2 (08:21→21:19)
[2025-06-10] MEDS: CHOLECALCIFEROL (Vitamin D3) 1,000 IU TABLET 1000 IU PO (08:21)
[2025-06-10] MEDS: ASPIRIN EC 81 MG TABEC PO (08:22)
[2025-06-10] MEDS: LINEZOLID 600 MG IVPB 600 MG/300 ML BAG 300 MG IV ×2 (08:22→21:19)
--- NOTE | 2025-06-10 08:54 | PC.SS ---
PASSR completed. Patient meets Level II criteria. PASSR follow up pending.
[2025-06-10 08:57] LABS: Basophils # (Auto) 0.0 Thou/mm3 (0.0-0.2); Basophils % (Auto) 1 % (0-2.5); Eosinophils # (Auto) 0.1 Thou/mm3 (0.0-0.5); Eosinophils % (Auto) 2 % (0-10); Hematocrit 37.3 % (36.0-46.0); Hemoglobin 11.6 g/dL (12.0-16.0); Immature Granulocytes Auto 0.02 Thou/mm3 (0.00-0.00); Lymphocytes # (Auto) 1.0 Thou/mm3 (1.0-4.8); Lymphocytes % (Auto) 26 % (10-50); Mean Corpuscular HGB Conc 31.1 g/dl (31.0-37.0); Mean Corpuscular Hemoglobin 33.2 pg (25.0-35.0); Mean Corpuscular Volume 107 fL (80-100); Monocytes # (Auto) 0.4 Thou/mm3 (0.0-0.8); Monocytes % (Auto) 12 % (0-12); Neutrophils # (Auto) 2.1 Thou/mm3 (1.8-7.7); Neutrophils % (Auto) 59 % (37-80); Nucleated Red Blood Cell # 0.00 Thou/mm3 (0.00-0.00); Nucleated Red Blood Cell % 0 /100 WBC (0); Platelet Count 159 Thou/mm3 (140-440); RDW Standard Deviation 62.4 fL (36.4-46.3); Red Blood Count 3.49 Miln/mm3 (4.00-5.20); White Blood Count 3.6 Thou/mm3 (3.6-11.0)
[2025-06-10 09:01] LABS: Alanine Aminotransferase 12 U/L (10-49); Albumin, Serum 4.0 gm/dL (3.4-4.8); Albumin/Globulin Ratio 1.9 (1.2-2.2); Alkaline Phosphatase 77 U/L (46-116); Anion Gap 9 (7-16); Aspartate Amino Transferase 25 U/L (0-34); BUN/Creatinine Ratio 5 Ratio (12-20); Bilirubin,Total 0.6 mg/dL (0.3-1.2); Blood Urea Nitrogen 15 mg/dL (9-23); Calcium 10.0 mg/dL (8.3-10.6); Calcium (Corrected) 10.0 mg/dL (8.5-10.1); Carbon Dioxide 29.6 mMol/L (20.0-31.0); Chloride 99 mMol/L (98-107); Creatinine (Component) 2.9 mg/dL (0.6-1.3); Estimated Creatinine Clearance 9.8 mL/min (>60); Globulin 2.1 gm/dL (2.3-3.5); Glucose 100 mg/dL (74-106); Magnesium 2.2 mg/dL (1.6-2.6); Osmolality,Calculated 276 (275-295); Phosphorous 2.2 mg/dL (2.4-5.1); Potassium 3.7 mMol/L (3.4-5.1); Sodium 138 mMol/L (136-145); Total Protein 6.1 gm/dL (5.7-8.2); eGFR 15 See Note
[2025-06-10] MEDS: DOCUSATE SOD 100 MG CAPSULE PO (11:13)
[2025-06-10] MEDS: LACTULOSE SYRUP 20 GM/30 ML UDC PO (11:13)
[2025-06-10] MEDS: NAPH,KPH MBDB 1 PACKET (1.5 GM) PO (11:14)
[2025-06-10] MEDS: POLYETHYLENE GLYCOL 17 GM PACKET PO (11:14)
[2025-06-10] MEDS: INSULIN LISPRO (AdmeLOG) 1 UNIT/0.01 ML UNIT SC ×2 (12:40→21:17)
--- NOTE | 2025-06-10 14:30 | PC.SS ---
Rounding Note: Patient receiving antibiotics. Discharge within 1-2 days.
--- NOTE | 2025-06-10 14:35 | XR_ITS ---
Examination: CT chest, without intravenous contrast. Sagittal and coronal 2-D reconstructions. Exam date and time: June 10, 2025 1832 hours INDICATIONS: Shortness of breath beginning 2 days ago CTDI:vol (mGy) 8.19 DLP: (mGycm) 254 Technique: Multiple 3.0 mm axial sections of the chest to been obtained. Bone and lung density settings are obtained. Sagittal and coronal 2-D reconstructions have been obtained. Low dose protocols were performed. One or more of the following dose reduction techniques were used; automated exposure control, adjustment of the mA and/or KV according to patient size, use of iterative reconstruction technique. Findings: No thoracic aortic aneurysm and dilatation Pulmonary artery segments are not enlarged Moderate enlargement left atrium and left ventricle Prominent vascular congestion with early perihilar edema Extensive pneumonia both lungs, diffusely in the left lung and significantly right lung base Moderate right pleural effusion Loculated upper left hemithorax pleural fluid axial image 30 Right internal jugular dialysis catheter and cardiac leads satisfactory position Liver is irregular in contour Spleen not enlarged No pancreatic mass Partial visualization atrophic kidneys IMPRESSION: Mild heart failure Bilateral pneumonia, diffuse in the left lung is significant at the right lung base Pleural disease as above. Partial visualization atrophic kidneys, consider renal sonography follow-up
[2025-06-10] MEDS: MIDODRINE 5 MG TABLET PO ×2 (15:08→21:18)
[2025-06-10] MEDS: ACETYLCYSTEINE SOL 20% 4 ML NEBU 3 ML INH ×2 (15:17→19:55)
[2025-06-10] MEDS: ALBUTEROL/IPRATROPIUM (Duoneb) RT SOL 3 ML NEBU INH ×2 (15:17→19:54)
--- NOTE | 2025-06-10 16:49 | PC.SS ---
ADMITTING REPRESENTATIVE confirmed with patient's son, Karthik Baeza; that physical therapy is recommending return to SNF upon discharge. Patient's son in agreement with discharge plan.
[2025-06-10] MEDS: MIRTAZAPINE 15 MG TABLET PO (21:18)
[2025-06-10] MEDS: ATORVASTATIN CALCIUM 20 MG TABLET PO (21:18)
[2025-06-11] VITALS (29 sets, daily range): BP systolic 94–137; BP diastolic 42–73; PULSE 58–92; RESP 11–31; TEMP 35.9–37; O2SAT 90–99; BMI 20.9
[2025-06-11] MEDS: ACETYLCYSTEINE SOL 20% 4 ML NEBU 3 ML INH ×3 (00:46→15:31)
[2025-06-11] MEDS: ALBUTEROL/IPRATROPIUM (Duoneb) RT SOL 3 ML NEBU INH ×4 (00:47→19:04)
[2025-06-11] MEDS: MIDODRINE 5 MG TABLET PO ×3 (05:27→21:50)
[2025-06-11 06:10] LABS: Basophils # (Auto) 0.0 Thou/mm3 (0.0-0.2); Basophils % (Auto) 1 % (0-2.5); Eosinophils # (Auto) 0.1 Thou/mm3 (0.0-0.5); Eosinophils % (Auto) 2 % (0-10); Hematocrit 35.1 % (36.0-46.0); Hemoglobin 11.0 g/dL (12.0-16.0); Immature Granulocytes Auto 0.02 Thou/mm3 (0.00-0.00); Lymphocytes # (Auto) 0.9 Thou/mm3 (1.0-4.8); Lymphocytes % (Auto) 23 % (10-50); Mean Corpuscular HGB Conc 31.3 g/dl (31.0-37.0); Mean Corpuscular Hemoglobin 32.8 pg (25.0-35.0); Mean Corpuscular Volume 105 fL (80-100); Monocytes # (Auto) 0.4 Thou/mm3 (0.0-0.8); Monocytes % (Auto) 10 % (0-12); Neutrophils # (Auto) 2.5 Thou/mm3 (1.8-7.7); Neutrophils % (Auto) 63 % (37-80); Nucleated Red Blood Cell # 0.00 Thou/mm3 (0.00-0.00); Nucleated Red Blood Cell % 0 /100 WBC (0); Platelet Count 197 Thou/mm3 (140-440); RDW Standard Deviation 61.1 fL (36.4-46.3); Red Blood Count 3.35 Miln/mm3 (4.00-5.20); White Blood Count 3.9 Thou/mm3 (3.6-11.0)
[2025-06-11 06:54] LABS: Alanine Aminotransferase 11 U/L (10-49); Albumin, Serum 3.6 gm/dL (3.4-4.8); Albumin/Globulin Ratio 1.9 (1.2-2.2); Alkaline Phosphatase 75 U/L (46-116); Anion Gap 13 (7-16); Aspartate Amino Transferase 22 U/L (0-34); BUN/Creatinine Ratio 6 Ratio (12-20); Bilirubin,Total 0.5 mg/dL (0.3-1.2); Blood Urea Nitrogen 21 mg/dL (9-23); Calcium 9.4 mg/dL (8.3-10.6); Calcium (Corrected) 9.7 mg/dL (8.5-10.1); Carbon Dioxide 27.5 mMol/L (20.0-31.0); Chloride 97 mMol/L (98-107); Creatinine (Component) 3.6 mg/dL (0.6-1.3); Estimated Creatinine Clearance 7.9 mL/min (>60); Globulin 1.9 gm/dL (2.3-3.5); Glucose 83 mg/dL (74-106); Magnesium 1.8 mg/dL (1.6-2.6); Osmolality,Calculated 275 (275-295); Phosphorous 2.8 mg/dL (2.4-5.1); Potassium 4.1 mMol/L (3.4-5.1); Sodium 137 mMol/L (136-145); Total Protein 5.5 gm/dL (5.7-8.2); eGFR 12 See Note
[2025-06-11] MEDS: BUDESONIDE RT 0.25 MG/2 ML NEBU INH ×2 (07:08→19:04)
--- NOTE | 2025-06-11 08:00 | XR_ITS ---
Examination: AP chest single view Technique one AP portable upright chest single view Date and time: June 11, 2025 0507 hours Comparison 11/10/2024 INDICATIONS: Difficulty breathing this week, heart failure pattern FINDINGS: There remains total opacification left hemithorax The cardiac contour is obscured There is extensive vascular congestion and perihilar edema and/or pneumonia in the right lung Right internal jugular dialysis catheter tip 6 satisfactory position Cardiac leads stable position IMPRESSION: There remains total opacification left hemithorax, please see the CT chest report June 10, 2025 Moderate heart failure
[2025-06-11] MEDS: LINEZOLID 600 MG IVPB 600 MG/300 ML BAG 300 MG IV ×2 (08:17→21:51)
[2025-06-11] MEDS: HEPARIN SOD INJ 5000 UNIT/ML VIAL SC ×2 (08:17→21:52)
[2025-06-11] MEDS: POLYETHYLENE GLYCOL 17 GM PACKET PO (08:17)
[2025-06-11] MEDS: DOCUSATE SOD 100 MG CAPSULE PO (08:18)
[2025-06-11] MEDS: CHOLECALCIFEROL (Vitamin D3) 1,000 IU TABLET 1000 IU PO (08:19)
[2025-06-11] MEDS: ASPIRIN EC 81 MG TABEC PO (08:19)
[2025-06-11] MEDS: SEVELAMER CARBONATE 800 MG TABLET PO ×3 (08:19→17:31)
--- NOTE | 2025-06-11 09:40 | ESPR_ITS ---
<Statement entered by Suraj Bergman MD - 06/11/25 17:35> Patient was examined and case was reviewed with team including attending physician. Note reviewed, I agree with most of its contents and agree with the patient's care as documented by Dr. Zhou Patient seen and evaluated at the bedside. Patient on imaging noted to have large right pleural effusion. ICU attending noted the pleural effusion was too small to tap at this time. Patient still requiring BiPAP intermittently for shortness of breath. Noted to have tachypnea in the 30s. Will continue at this time with linezolid for management of UTI. Patient would likely require thoracentesis for this right pleural effusion however attempt to communicate with the son have been unsuccessful. Later in the day was able to reach the son and he consented to thoracentesis and chest tube but no procedure involving intubation or bronchoscopy. Case discussed with my attending Dr. Jone Bergman MD PGY-2 Disclaimer: Despite multiple revisions, due to the dictation software being used, the document bellow may not be free of grammatical errors including phonetic/typographic errors. However, this does not deter from our commitment to providing health care in the patient's best interest in mind. Documentation for date of: 06/11/25 Subjective Subjective Interval history: NAEO Afebrile, RR 30s, On 4 L spO2 90%, later upgraded to BiPAP for increased work of breathing 1 BM - small, dark stool. Patient continues to have diffuse abdominal pain CT chest showed heart failure, bilateral pneumonia (diffuse left PNA, RLL), right pleural effusion. Spoke with Dr. Garza (consulting nurse) who noted that the pleural effusion was too small to tap at this time. Will continue to monitor clinical signs/sx and follow with imaging. However, patient's oxygen requirements are not improving intermittently requiring BiPAP. She continues to be tachypneic in the 30s, CXR shows increased vascular congestion. She continues to be afebrile and has no leukocytosis. Continuing to treat with linezolid for UTI. Patient reports that she continues to have shortness of breath, but denies chest pain/pressure. AO x 2 this morning. Reports that she does not want to be intubated for a BAL. Discussed BAL, thoracentesis, chest tube with patient's son, Karthik ([phone]). Over the phone he consented to thoracentesis and chest tube, did not consent to BAL. Consent forms were signed by 2 physicians, specifying that sonHIMA, consented to these procedures over the phone. Exam Vital Signs Temp Pulse Resp BP Pulse Ox O2 Del Method O2 Flow Rate 97.0 F 82 20 126/52 L 94 L Nasal Cannula 4 06/11/25 08:00 06/11/25 08:18 06/11/25 08:00 06/11/25 08:18 06/11/25 08:00 06/11/25 08:00 06/11/25 08:00 FiO2 40 06/10/25 08:00 Narrative Exam General: Elderly female, appears stated age, no acute distress Eye: PERRL, EOMI, normal conjunctiva, no scleral icterus HENT: Normocephalic, atraumatic, normal hearing, moist oral mucosa, difficulty with hearing Neck: Supple, non-tender, no JVD, no lymphadenopathy Lungs: spO2 appropriate BiPAP, no crackles appreciated, shallow breaths, s ymmetric chest rise Heart: Normal S1 and S2, no S3 or S4 appreciated. Normal rate and regular rhythm, no murmurs, rubs gallops, or edema. Peripheral pulses intact bilaterally, capillary refill brisk distally. Fistula of left arm, warm, non- tender, no erythema. Abdomen: Soft, non-distended, difusely TTP, normal bowel sounds. No guarding or rebound tenderness. Musculoskeletal: Normal range of motion and strength, no tenderness or swelling Skin: Skin is warm, dry, no rashes or lesions. Neurologic: Alert, awake and oriented x2. CN II-XII grossly intact. No focal neuro deficits. 5/5 strength b/l UE. Psychiatric: Cooperative, appropriate mood and affect Objective Labs 06/12/25 04:47 06/12/25 04:47 Labs: Laboratory Results - last 24 hr 06/11/25 05:42 WBC 3.9 RBC 3.35 L Hgb 11.0 L Hct 35.1 L MCV 105 H MCH 32.8 MCHC 31.3 RDW Std Deviation 61.1 H Plt Count 197 D Neut % (Auto) 63 Lymph % (Auto) 23 [place] % (Auto) 10 Eos % (Auto) 2 Baso % (Auto) 1 Neut # (Auto) 2.5 Lymph # (Auto) 0.9 L [place] # (Auto) 0.4 Eos # (Auto) 0.1 Baso # (Auto) 0.0 Immature Gran # (Auto) 0.02 H Absolute Nucleated RBC 0.00 Immature Gran % 1 H Nucleated RBC % 0 Sodium 137 Potassium 4.1 Chloride 97 L Carbon Dioxide 27.5 Anion Gap 13 BUN 21 Creatinine 3.6 H D Estim Creat Clear Calc 7.9 L eGFR 12 L* BUN/Creatinine Ratio 6 L Glucose 83 Calculated Osmolality 275 Calcium 9.4 Corrected Calcium 9.7 Phosphorus 2.8 Magnesium 1.8 Total Bilirubin 0.5 AST 22 ALT 11 Alkaline Phosphatase 75 Total Protein 5.5 L Albumin 3.6 Globulin 1.9 L Albumin/Globulin Ratio 1.9 ABG Interpretation ABG results: 06/04/25 15:40 ABG pH 7.38 ABG pCO2 52 H ABG pO2 148 H ABG HCO3 31 H ABG O2 Saturation 100 H ABG Base Excess 5 H Quality Measures Quality Measures VTE prophylaxis Advance care planning discussed with:: patient and child Assessment & Plan Assessment Current Active Medications: Generic Name Dose Route Start Last Admin Trade Name Freq PRN Reason Stop Dose Admin Acetaminophen 650 mg 06/04/25 17:31 Acetaminophen 325 Mg Tablet PO 07/04/25 17:30 Q6H PRN Fever >101.5 Acetaminophen 650 mg 06/04/25 17:31 Acetaminophen 325 Mg Tablet PO 07/04/25 17:30 Q6H PRN PAIN SCALE 1-3 (mild Acetylcysteine 3 ml 06/10/25 13:00 06/11/25 07:07 Acetylcysteine [place] 20% 4 Ml Nebu INH 07/10/25 12:59 3 ml Q6HRRT CORIE Administration Albuterol 2 puff 06/08/25 10:03 Albuterol Inh 8 Gm INH 07/08/25 10:02 Q4HR PRN SHORTNESS OF BREATH OR WHEEZE Albuterol/Ipratropium 3 ml 06/10/25 13:00 06/11/25 07:08 Albuterol/Ipratropium (Duoneb) Rt [place] 3 Ml Nebu INH 07/10/25 12:59 3 ml Q6HRRT CORIE Administration Aspirin 81 mg 06/04/25 21:00 06/11/25 08:19 Aspirin Ec 81 Mg Tabec PO 07/04/25 20:59 81 mg QDAY CORIE Administration Atorvastatin Calcium 20 mg 06/05/25 21:00 06/10/25 21:18 Atorvastatin Calcium 20 Mg Tablet PO 07/05/25 20:59 20 mg HS CORIE Administration Budesonide 0.25 mg 06/08/25 10:15 06/11/25 07:08 Budesonide Rt 0.25 Mg/2 Ml Nebu INH 07/08/25 10:14 0.25 mg BIDRT CORIE Administration Dextrose 25 ml 06/04/25 19:37 Dextrose 50%-Water Inj 50 Ml Syringe IV 07/04/25 19:36 Q15MIN PRN BG 50-70 responsive npo pt Dextrose 50 ml 06/04/25 19:37 Dextrose 50%-Water Inj 50 Ml Syringe IV 07/04/25 19:36 Q15MIN PRN BG <50 OR BG <70 & pt unresponsive Docusate Sodium 100 mg 06/10/25 09:45 06/11/25 08:18 Docusate Sod 100 Mg Capsule PO 07/10/25 09:44 100 mg QDAY CORIE Administration Protocol Furosemide 40 mg 06/10/25 08:00 06/11/25 08:18 Furosemide 40 Mg Tablet PO 07/10/25 07:59 40 mg QDAY CORIE Administration Glucagon 1 mg 06/04/25 19:37 Glucagon Inj 1 Mg Vial IM Q15MIN PRN BG <70, and no IV access Guaifenesin 600 mg 06/10/25 09:55 06/11/25 08:19 Guaifenesin Er 600 Mg Tabcr PO 07/10/25 09:54 600 mg BID CORIE Administration Heparin Sodium (Porcine) 5,000 unit 06/04/25 17:45 06/11/25 08:17 Heparin Sod Inj 5000 Unit/Ml Vial SC 06/18/25 17:44 5,000 unit Q12HR CORIE Administration Heparin Sodium (Porcine) 3,700 unit 06/05/25 16:35 06/09/25 15:17 Heparin Sod Inj 1000 Unit/Ml Vial 10 Ml INDWELLCAT 06/19/25 16:34 3,700 unit X1 PRN Administration DIALYSIS Albumin Human 25 gm in 100 mls @ 100 mls/min 06/09/25 07:13 06/09/25 14:35 Albuminar-25 Ivpb IV Infused PRN PRN Infusion DIALYSIS Linezolid 600 mg in 300 mls @ 300 mls/hr 06/09/25 07:33 06/11/25 08:17 Zyvox Ivpb IV 06/16/25 07:32 300 mls/hr Q12HR CORIE Administration Protocol Insulin Human Lispro 0 unit 06/07/25 07:30 06/11/25 08:03 Insulin Lispro (Admelog) 1 Unit/0.01 Ml Unit SC 07/07/25 07:29 Not Given ACHS CORIE Protocol Midodrine 5 mg 06/04/25 22:00 06/11/25 05:27 Midodrine 5 Mg Tablet PO 07/04/25 21:59 5 mg TID CORIE Administration Mirtazapine 15 mg 06/05/25 21:00 06/10/25 21:18 Mirtazapine 15 Mg Tablet PO 07/05/25 20:59 15 mg HS CORIE Administration Ondansetron HCl 4 mg 06/04/25 17:31 Ondansetron Inj 2 Mg/Ml Inj 2 Ml IVP 07/04/25 17:30 Q6H PRN NAUSEA OR VOMITING Protocol Polyethylene Glycol 17 gm 06/10/25 09:35 06/11/25 08:17 Polyethylene Glycol 17 Gm Packet PO 07/10/25 09:34 17 gm QDAY CORIE Administration Sevelamer Carbonate 800 mg 06/05/25 08:00 06/11/25 08:19 Sevelamer Carbonate 800 Mg Tablet PO 07/05/25 07:59 800 mg TIDWM CORIE Administration Vitamin D 1,000 iu 06/05/25 09:00 06/11/25 08:19 Cholecalciferol (Vitamin D3) 1,000 Iu Tablet PO 07/05/25 08:59 1,000 iu QDAY CORIE Administration Plan Ms. Baeza is 85 y/o female with PMH of CHF, insulin-dependent DM, CAD s/p CABG, ESRD on HD MWF, hypertension who presented to the ED from [facility] on 06/04 for progressive shortness of breath and productive cough x4 days. Admitted for AHRF and sepsis 2/2 CAP, COVID pneumonitis, influenza A and B, VRE UTI, management of acute CHF exacerbation. Getting HD MWF. #Acute hypoxic respiratory failure #Community-acquired pneumonia #COVID pneumonitis #Influenza Initial sx of progressive shortness of breath, hypoxic, started on OxyMask, on BiPAP On home O2 2-3L Influenza A and B positive, COVID PCR positive Completed course Azitrhomycin 500 mg IV QD x 3 days (06/04 - 06/06), Ceftriaxone 1 g IV QD x 5 days (06/04 - 06/08), Tamiflu 30 mg QD x 5 days (06/04 - 06/08) Respiratory status, continues to need supplemental O2 4-6 with intermittent BiPAP 08/03. Continues to have shallow breaths, feeling short of breath, RR in 30s. CT chest shows prominent vascular congestion with perihilar edema, extensive PNA of both lungs, diffusely in the left lung and RLL. Moderate right pleural effusion, loculated upper left hemithorax pleural fluid. Per Dr. Garza, no tappable effusion pocket at this time. Patient and son (HIMA) refused BAL, as she does not want to be intubated. Son consented over the phone for thoracentesis, chest tube. Plan: - Lasix 40 mg daily - Albuterol inhaler q4h PRN, Budesonide inh q4h - Duoneb q4h, Mucomist q4h, guaifenasin q4h corie - Chest physiotherapy daily - Incentive spirometer - supplemental O2 PRN - Will order US guided thoracentesis w/ pleural fluid analysis, pleural pH, serum LDH on 814 AM #VRE UTI Hx of recurrent UTIs (3 within the past year) Denies burning with urination, increased urgency Plan: - Linezolid 600 mg BID IV (06/09-06/15) #Sepsis - resolved Temp > 100.4 (Tmax 101.3), HR > 90 (max 93), RR > 20 (max 35) + suspected source of infection (PNA, UTI) Fluids NOT given as pt appeared to be fluid overloaded (IVC non-collapsible, elevated BNP, and imaging findings of vascular congestion and perihilar edema), has ESRD and missed HD 06/04 Continues to be afebrile, no leukocytosis Blood cx NGTD at 48h Plan: - CTM vitals - Tylenol PRN for fever #Acute CHF exacerbation Decreased amount of crackles on auscultation since initial exam. Dry oral mucosa, no lower extremity edema. BNP >3280 Vascular congestion and peihilar edema seen on CXR Plan: - Hemodialysis MWF - Restarted Lasix 40 mg IV QD - Pending TTE - Strict I&Os (patient makes urine, has pure wick to measure urine output) - Daily weights - Replete electrolytes (keep Mg >2, K >4) #ESRD on HD MWF Missed dialysis 06/04 On admit: BUN 42, Cr 4 Corporate Associate Attorney: Dr. Dumont Left arm swelling (site of fistula for HD), warmth 06/07 overnight. US LUE showed no DVT. Plan: - Hemodialysis per Dr. Dumont - Continued home Sevelamer 80 mg TID w/ meals - Restarted lasix - Consulted nephrology (Dr. Dumont), appreciate recs - Avoid nephrotoxic agents - Renally dose meds #CAD s/p CABG Denies chest pain/pressure Lipid panel WNL Plan: - Continue home ASA 81 mg daily, atorvastatin 20 mg QHS #Troponinemia - downtrending Denies chest pain/pressure Trop 0.293 --> 0.241 Most likely 2/2 demand ischemia i/s/o sepsis Plan: - CTM for s/sx of cardiac injury, but no need to trend troponins as they are now downtrending #Hepatits B core IgM Ab positive Denies abdominal sx, not jaundiced, no AMS Hepatitis B antigen nonreactive, Hepatitis B Ab (immune) nonreactive, Hepatitis B core IgM Ab reactive AST 41, ALT WNL, alk phos WNL, total bili WNL. PT 12.5, INR and PTT WNL Window period, recent hep B infection Plan: - Repeat Hepatitis B panel in several weeks to confirm trend. - CTM symptoms, LFTs #Insulin-dependent DM Initial BG 143 A1C 6.9 Plan: - SSI #Macrocytic anemia On admit: Hgb 10.6, HCT 34.4, MCV 109. No anemia present on previous CBC 04/20/24 Hgb stable B12 1306 high, folate WNL, reticulocyte count WNL, TSH WNL Most likely secondary to ESRD on HD - CTM with daily CBC #Hyperkalemia Plan: - Hemodialysis as above - CTM with CMP #Constipation - improving 1 small BM today. Continues to have diffuse abdominal TTP. Patient states that she feels like she needs to have a bowel movement. Plan: - Docusate daily corie, Miralax daily corie, Lactulose 20 g TID #Restless leg syndrome Plan: - Held home pramipexole i/s/o CHF / fluid overload Dispo: PNA and CHF tx, HD Diet: Cardiac Bowel Reg: Docusate QD corie, Miralax daily corie, Lactulose 20 g TID VTE ppx: Heparin 5000U subQ BID GI ppx: none Code status: DNR/DNI Plan discussed with Dr. Winter and Dr. Jone Zhou MD PGY1 Attending Provider Attestation/Addendum I have examined the patient, reviewed labs and imaging findings, discussed the case with the resident(s), and reviewed entered orders. I agree with the plan of care as outlined in this note, with these additional summaries/recommendations: Patient seen at bedside. No acute overnight events. She has no acute complaints today. Patient underwent CT scan of chest yesterday which revealed mild heart failure, bilateral pneumonia, moderate right pleural effusion, and loculated upper left hemithorax pleural fluid. Patient reports she has had chest tube placed in the past in [place]. Patient is adamant that she does not want bronchoscopy or any form of intubation. She is okay with thoracentesis/chest tube placement if needed. Patient is ANO x 2 at baseline. Patients son who is patients medical decision maker as declines bronchoscopy/intubation. Lower suspicion for parapneumonic effusion. We will continue antibiotics. Urine culture grew vancomycin-resistant Enterococcus faecium and patient receiving linezolid. Continue Mucomyst and chest physical therapy. Continue breathing treatments. In-house nephrology following for ESRD. Continue phosphate binders. Avoid nephrotoxic agents and renally dose medications. Continue midodrine for chronic hypotension. Patient has chronic constipation and will adjust bowel regimen as needed. Overall prognosis is guarded at this time. Patient updated on the plan and agreement. Dr. Jone MD
[2025-06-11] MEDS: LACTULOSE SYRUP 20 GM/30 ML UDC PO ×3 (10:50→21:52)
--- NOTE | 2025-06-11 11:30 | PC.SS ---
LEAD LAYING AND GLUING MACHINE OPERATOR informed by resident that plan is for patient to obtain thoracentesis, bronchoscopy and possible chest tube placement. Consents from son pending. LEAD LAYING AND GLUING MACHINE OPERATOR contacted patient's son, Karthik Baeza; via phone and connected son to resident. Consents in progress.
[2025-06-11] MEDS: INSULIN LISPRO (AdmeLOG) 1 UNIT/0.01 ML UNIT SC (11:41)
--- NOTE | 2025-06-11 14:14 | PC.SS ---
Rounding Note: Patient is on BI-PAP. Consent for chest tube and thoracentesis has been obtained.
[2025-06-11] MEDS: ATORVASTATIN CALCIUM 20 MG TABLET PO (21:50)
[2025-06-11] MEDS: MIRTAZAPINE 15 MG TABLET PO (21:51)
[2025-06-12] VITALS (15 sets, daily range): BP systolic 85–139; BP diastolic 45–77; PULSE 78–112; RESP 14–42; TEMP 36.2–36.6; O2SAT 94–100; BMI 21.0; BMI 12.0
[2025-06-12] MEDS: ALBUTEROL/IPRATROPIUM (Duoneb) RT SOL 3 ML NEBU INH ×6 (02:20→23:11)
[2025-06-12] MEDS: ACETYLCYSTEINE SOL 20% 4 ML NEBU 3 ML INH ×5 (02:20→19:57)
[2025-06-12] MEDS: MIDODRINE 5 MG TABLET PO ×2 (05:35→21:41)
[2025-06-12] MEDS: LACTULOSE SYRUP 20 GM/30 ML UDC PO (05:35)
[2025-06-12 06:18] LABS: Alanine Aminotransferase 14 U/L (10-49); Albumin, Serum 3.9 gm/dL (3.4-4.8); Albumin/Globulin Ratio 1.9 (1.2-2.2); Alkaline Phosphatase 84 U/L (46-116); Anion Gap 10 (7-16); Aspartate Amino Transferase 33 U/L (0-34); BUN/Creatinine Ratio 5 Ratio (12-20); Basophils # (Auto) 0.0 Thou/mm3 (0.0-0.2); Basophils % (Auto) 1 % (0-2.5); Bilirubin,Total 0.5 mg/dL (0.3-1.2); Blood Urea Nitrogen 11 mg/dL (9-23); Calcium 9.7 mg/dL (8.3-10.6); Calcium (Corrected) 9.8 mg/dL (8.5-10.1); Carbon Dioxide 26.5 mMol/L (20.0-31.0); Chloride 100 mMol/L (98-107); Creatinine (Component) 2.3 mg/dL (0.6-1.3); Eosinophils # (Auto) 0.1 Thou/mm3 (0.0-0.5); Eosinophils % (Auto) 2 % (0-10); Estimated Creatinine Clearance 12.4 mL/min (>60); Globulin 2.1 gm/dL (2.3-3.5); Glucose 106 mg/dL (74-106); Hematocrit 34.3 % (36.0-46.0); Hemoglobin 10.8 g/dL (12.0-16.0); Immature Granulocytes Auto 0.02 Thou/mm3 (0.00-0.00); Lymphocytes # (Auto) 0.9 Thou/mm3 (1.0-4.8); Lymphocytes % (Auto) 17 % (10-50); Magnesium 2.1 mg/dL (1.6-2.6); Mean Corpuscular HGB Conc 31.5 g/dl (31.0-37.0); Mean Corpuscular Hemoglobin 32.8 pg (25.0-35.0); Mean Corpuscular Volume 104 fL (80-100); Monocytes # (Auto) 0.5 Thou/mm3 (0.0-0.8); Monocytes % (Auto) 9 % (0-12); Neutrophils # (Auto) 3.9 Thou/mm3 (1.8-7.7); Neutrophils % (Auto) 71 % (37-80); Nucleated Red Blood Cell # 0.00 Thou/mm3 (0.00-0.00); Nucleated Red Blood Cell % 0 /100 WBC (0); Osmolality,Calculated 271 (275-295); Phosphorous 1.9 mg/dL (2.4-5.1); Platelet Count 179 Thou/mm3 (140-440); Potassium 3.6 mMol/L (3.4-5.1); RDW Standard Deviation 61.7 fL (36.4-46.3); Red Blood Count 3.29 Miln/mm3 (4.00-5.20); Sodium 136 mMol/L (136-145); Total Protein 6.0 gm/dL (5.7-8.2); White Blood Count 5.5 Thou/mm3 (3.6-11.0); eGFR 20 See Note
--- NOTE | 2025-06-12 06:47 | XR_ITS ---
Examination: Ultrasound right hemithorax Ultrasound left hemithorax Date and time: June 12, 2025 1248 hours INDICATIONS: Difficulty breathing this week, chest x-ray June 11, 2025 total opacification left hemithorax TECHNIQUE AND FINDINGS: Multiple high-resolution grayscale sonographic images right and left hemithoraces Minimal right pleural fluid No left pleural fluid noted IMPRESSION: Minimal right pleural fluid
--- NOTE | 2025-06-12 06:49 | ESPR_ITS ---
<Statement entered by Suraj Bergman MD - 06/12/25 13:26> Patient was examined and case was reviewed with team including attending physician. Note reviewed, I agree with most of its contents and agree with the patient's care as documented by Dr. Zhou Patient seen today at the bedside found awake, alert, orientedx3. No overnight events reported. Vital signs stable at this time. Oxygen requirements decreasing. Spoke to son with regards of possible need of thoracenetesis/chest tube placement, son provided consent. Will schedule IR guided thoracentesis in the am. Suraj Bergman MD PGY-2 Documentation for date of: 06/12/25 Subjective Subjective Interval history: NAEO. 4L spO2 98% Plan for US thoracentesis today Had 1 BM this AM, small and hard. Will continue bowel reg. Patient reports that her shortness of breath has somewhat improved. Denies chest pain/pressure. Was able to answer questions a bit more today. Continues to have tachypnea RR max 30. Exam Vital Signs Temp Pulse Resp BP Pulse Ox O2 Del Method O2 Flow Rate 97.2 F 95 18 125/53 L 100 High Flow Nasal Cannula 5 06/12/25 04:00 06/12/25 05:35 06/12/25 04:00 06/12/25 05:35 06/12/25 04:00 06/12/25 04:00 06/12/25 04:00 FiO2 40 06/11/25 09:48 Narrative Exam General: Elderly female, appears stated age, no acute distress Eye: PERRL, EOMI, normal conjunctiva, no scleral icterus HENT: Normocephalic, atraumatic, normal hearing, moist oral mucosa, difficulty with hearing Neck: Supple, non-tender, no JVD, no lymphadenopathy Lungs: spO2 98% 4L, no crackles appreciated, shallow breaths (Somewhat improved today), symmetric chest rise Heart: Normal S1 and S2, no S3 or S4 appreciated. Normal rate and regular rhythm, no murmurs, rubs gallops, or edema. Peripheral pulses intact bilaterally, capillary refill brisk distally. Fistula of left arm, warm, non- tender, no erythema. Abdomen: Soft, non-distended, difusely TTP (improved today), normal bowel sounds. No guarding or rebound tenderness. Musculoskeletal: Normal range of motion and strength, no tenderness or swelling Skin: Skin is warm, dry, no rashes or lesions. Neurologic: Alert, awake and oriented x2. CN II-XII grossly intact. No focal neuro deficits. 5/5 strength b/l UE. Psychiatric: Cooperative, appropriate mood and affect Objective Labs 06/12/25 04:47 06/12/25 04:47 Labs: Laboratory Results - last 24 hr 06/11/25 06/12/25 05:42 04:47 WBC 5.5 D RBC 3.29 L Hgb 10.8 L Hct 34.3 L MCV 104 H MCH 32.8 MCHC 31.5 RDW Std Deviation 61.7 H Plt Count 179 Neut % (Auto) 71 Lymph % (Auto) 17 [place] % (Auto) 9 Eos % (Auto) 2 Baso % (Auto) 1 Neut # (Auto) 3.9 Lymph # (Auto) 0.9 L [place] # (Auto) 0.5 Eos # (Auto) 0.1 Baso # (Auto) 0.0 Immature Gran # (Auto) 0.02 H Absolute Nucleated RBC 0.00 Immature Gran % 0 Nucleated RBC % 0 Sodium 137 136 Potassium 4.1 3.6 D Chloride 97 L 100 Carbon Dioxide 27.5 26.5 Anion Gap 13 10 BUN 21 11 Creatinine 3.6 H D 2.3 H D Estim Creat Clear Calc 7.9 L 12.4 L eGFR 12 L* 20 L BUN/Creatinine Ratio 6 L 5 L Glucose 83 106 Calculated Osmolality 275 271 L Calcium 9.4 9.7 Corrected Calcium 9.7 9.8 Phosphorus 2.8 1.9 L Magnesium 1.8 2.1 Total Bilirubin 0.5 0.5 AST 22 33 ALT 11 14 Alkaline Phosphatase 75 84 Total Protein 5.5 L 6.0 Albumin 3.6 3.9 Globulin 1.9 L 2.1 L Albumin/Globulin Ratio 1.9 1.9 ABG Interpretation ABG results: 06/04/25 15:40 ABG pH 7.38 ABG pCO2 52 H ABG pO2 148 H ABG HCO3 31 H ABG O2 Saturation 100 H ABG Base Excess 5 H Quality Measures Quality Measures VTE prophylaxis Advance care planning discussed with:: patient Assessment & Plan Assessment Current Active Medications: Generic Name Dose Route Start Last Admin Trade Name Freq PRN Reason Stop Dose Admin Acetaminophen 650 mg 06/04/25 17:31 Acetaminophen 325 Mg Tablet PO 07/04/25 17:30 Q6H PRN Fever >101.5 Acetaminophen 650 mg 06/04/25 17:31 Acetaminophen 325 Mg Tablet PO 07/04/25 17:30 Q6H PRN PAIN SCALE 1-3 (mild Acetylcysteine 3 ml 06/11/25 15:00 06/12/25 02:20 Acetylcysteine [place] 20% 4 Ml Nebu INH 07/11/25 14:59 3 ml Q4HRRT CORIE Administration Albuterol 2 puff 06/08/25 10:03 Albuterol Inh 8 Gm INH 07/08/25 10:02 Q4HR PRN SHORTNESS OF BREATH OR WHEEZE Albuterol/Ipratropium 3 ml 06/11/25 15:00 06/12/25 02:21 Albuterol/Ipratropium (Duoneb) Rt [place] 3 Ml Nebu INH 07/11/25 14:59 3 ml Q4HRRT CORIE Administration Aspirin 81 mg 06/04/25 21:00 06/11/25 08:19 Aspirin Ec 81 Mg Tabec PO 07/04/25 20:59 81 mg QDAY CORIE Administration Atorvastatin Calcium 20 mg 06/05/25 21:00 06/11/25 21:50 Atorvastatin Calcium 20 Mg Tablet PO 07/05/25 20:59 20 mg HS CORIE Administration Budesonide 0.25 mg 06/11/25 19:00 06/11/25 19:04 Budesonide Rt 0.25 Mg/2 Ml Nebu INH 07/11/25 18:59 0.25 mg BIDRT CORIE Administration Dextrose 25 ml 06/04/25 19:37 Dextrose 50%-Water Inj 50 Ml Syringe IV 07/04/25 19:36 Q15MIN PRN BG 50-70 responsive npo pt Dextrose 50 ml 06/04/25 19:37 Dextrose 50%-Water Inj 50 Ml Syringe IV 07/04/25 19:36 Q15MIN PRN BG <50 OR BG <70 & pt unresponsive Docusate Sodium 100 mg 06/10/25 09:45 06/11/25 08:18 Docusate Sod 100 Mg Capsule PO 07/10/25 09:44 100 mg QDAY CORIE Administration Protocol Furosemide 40 mg 06/10/25 08:00 06/11/25 08:18 Furosemide 40 Mg Tablet PO 07/10/25 07:59 40 mg QDAY CORIE Administration Glucagon 1 mg 06/04/25 19:37 Glucagon Inj 1 Mg Vial IM Q15MIN PRN BG <70, and no IV access Guaifenesin 600 mg 06/11/25 13:45 06/12/25 05:35 Guaifenesin Er 600 Mg Tabcr PO 07/11/25 13:44 600 mg Q4H CORIE Administration Heparin Sodium (Porcine) 5,000 unit 06/04/25 17:45 06/11/25 21:52 Heparin Sod Inj 5000 Unit/Ml Vial SC 06/18/25 17:44 5,000 unit Q12HR CORIE Administration Heparin Sodium (Porcine) 3,700 unit 06/05/25 16:35 06/09/25 15:17 Heparin Sod Inj 1000 Unit/Ml Vial 10 Ml INDWELLCAT 06/19/25 16:34 3,700 unit X1 PRN Administration DIALYSIS Albumin Human 25 gm in 100 mls @ 100 mls/min 06/09/25 07:13 06/09/25 14:35 Albuminar-25 Ivpb IV Infused PRN PRN Infusion DIALYSIS Linezolid 600 mg in 300 mls @ 300 mls/hr 06/09/25 07:33 06/11/25 21:51 Zyvox Ivpb IV 06/16/25 07:32 300 mls/hr Q12HR CORIE Administration Protocol Insulin Human Lispro 0 unit 06/07/25 07:30 06/11/25 21:50 Insulin Lispro (Admelog) 1 Unit/0.01 Ml Unit SC 07/07/25 07:29 Not Given ACHS CORIE Protocol Lactulose 20 gm 06/11/25 09:45 06/12/25 05:35 Lactulose Syrup 20 Gm/30 Ml Udc PO 07/11/25 09:44 20 gm TID CORIE Administration Protocol Midodrine 5 mg 06/04/25 22:00 06/12/25 05:35 Midodrine 5 Mg Tablet PO 07/04/25 21:59 5 mg TID CORIE Administration Mirtazapine 15 mg 06/05/25 21:00 06/11/25 21:51 Mirtazapine 15 Mg Tablet PO 07/05/25 20:59 15 mg HS CORIE Administration Ondansetron HCl 4 mg 06/04/25 17:31 Ondansetron Inj 2 Mg/Ml Inj 2 Ml IVP 07/04/25 17:30 Q6H PRN NAUSEA OR VOMITING Protocol Polyethylene Glycol 17 gm 06/10/25 09:35 06/11/25 08:17 Polyethylene Glycol 17 Gm Packet PO 07/10/25 09:34 17 gm QDAY CORIE Administration Sevelamer Carbonate 800 mg 06/05/25 08:00 06/11/25 17:31 Sevelamer Carbonate 800 Mg Tablet PO 07/05/25 07:59 800 mg TIDWM CORIE Administration Vitamin D 1,000 iu 06/05/25 09:00 06/11/25 08:19 Cholecalciferol (Vitamin D3) 1,000 Iu Tablet PO 07/05/25 08:59 1,000 iu QDAY CORIE Administration Plan Ms. Baeza is 85 y/o female with PMH of CHF, insulin-dependent DM, CAD s/p CABG, ESRD on HD MWF, hypertension who presented to the ED from [facility] on 06/04 for progressive shortness of breath and productive cough x4 days. Admitted for AHRF and sepsis 2/2 CAP, COVID pneumonitis, influenza A and B, VRE UTI, management of acute CHF exacerbation. Getting HD MWF. #Acute hypoxic respiratory failure - improving #Community-acquired pneumonia #COVID pneumonitis #Influenza Initial sx of progressive shortness of breath, hypoxic, started on OxyMask, on BiPAP On home O2 2-3L Influenza A and B positive, COVID PCR positive Completed course Azitrhomycin 500 mg IV QD x 3 days (06/04 - 06/06), Ceftriaxone 1 g IV QD x 5 days (06/04 - 06/08), Tamiflu 30 mg QD x 5 days (06/04 - 06/08) spO2 98% on 4L today, clinical improvement in patient's subjective shortness of breath. Continues to have shallow breaths, improved subjective shortness of breath, max RR 30. CT chest shows prominent vascular congestion with perihilar edema, extensive PNA of both lungs, diffusely in the left lung and RLL. Moderate right pleural effusion, loculated upper left hemithorax pleural fluid. Patient and son (MPOA) refused BAL, as she does not want to be intubated. Son consented over the phone for thoracentesis, chest tube. Plan: - Decreased lasix 40 to home dose lasix 20 mg PO daily - Albuterol inhaler q4h PRN, Budesonide inh q4h - Duoneb q4h, Mucomist q4h, guaifenasin q4h corie - Chest physiotherapy daily - Incentive spirometer - supplemental O2 PRN - Pending US guided thoracentesis w/ pleural fluid analysis, pleural pH, serum LDH on 814 AM - Repeat CXR after thoracentesis #VRE UTI Hx of recurrent UTIs (3 within the past year) Denies burning with urination, increased urgency Plan: - Linezolid 600 mg BID IV (06/09-06/15) #Sepsis - resolved Temp > 100.4 (Tmax 101.3), HR > 90 (max 93), RR > 20 (max 35) + suspected source of infection (PNA, UTI) Fluids NOT given as pt appeared to be fluid overloaded (IVC non-collapsible, elevated BNP, and imaging findings of vascular congestion and perihilar edema), has ESRD and missed HD 06/04 Continues to be afebrile, no leukocytosis Blood cx NGTD at 48h Plan: - CTM vitals - Tylenol PRN for fever #Acute CHF exacerbation Decreased amount of crackles on auscultation since initial exam. Dry oral mucosa, no lower extremity edema. BNP >3280 Vascular congestion and peihilar edema seen on CXR Plan: - Hemodialysis MWF - Lasix 20 mg PO daily - Pending TTE - Strict I&Os (patient makes urine, has pure wick to measure urine output) - Daily weights - Replete electrolytes (keep Mg >2, K >4) #ESRD on HD MWF Missed dialysis 06/04 On admit: BUN 42, Cr 4 Tape Coater: Dr. Dumont Left arm swelling (site of fistula for HD), warmth 06/07 overnight. US LUE showed no DVT. Plan: - Hemodialysis per Dr. Dumont - Continued home Sevelamer 80 mg TID w/ meals - Lasix 20 mg PO daily - Consulted nephrology (Dr. Dumont), appreciate recs - Avoid nephrotoxic agents - Renally dose meds #CAD s/p CABG Denies chest pain/pressure Lipid panel WNL Plan: - Continue home ASA 81 mg daily, atorvastatin 20 mg QHS #Troponinemia - downtrending Denies chest pain/pressure Trop 0.293 --> 0.241 Most likely 2/2 demand ischemia i/s/o sepsis Plan: - CTM for s/sx of cardiac injury, but no need to trend troponins as they are now downtrending #Hepatits B core IgM Ab positive Denies abdominal sx, not jaundiced, no AMS Hepatitis B antigen nonreactive, Hepatitis B Ab (immune) nonreactive, Hepatitis B core IgM Ab reactive AST 41, ALT WNL, alk phos WNL, total bili WNL. PT 12.5, INR and PTT WNL Window period, recent hep B infection Plan: - Repeat Hepatitis B panel in several weeks to confirm trend. - CTM symptoms, LFTs #Insulin-dependent DM Initial BG 143 A1C 6.9 Plan: - SSI #Macrocytic anemia On admit: Hgb 10.6, HCT 34.4, MCV 109. No anemia present on previous CBC 04/20/24 Hgb stable B12 1306 high, folate WNL, reticulocyte count WNL, TSH WNL Most likely secondary to ESRD on HD Plan: - CTM with daily CBC #Hyperkalemia Plan: - Hemodialysis as above - CTM with CMP #Constipation - improving 1 small BM today. Continues to have diffuse abdominal TTP. Patient states that she feels like she needs to have a bowel movement. Plan: - Docusate daily corie, Miralax daily corie, Lactulose 20 g TID #Restless leg syndrome Plan: - Held home pramipexole i/s/o CHF / fluid overload Dispo: PNA and CHF tx, HD Diet: Cardiac Bowel Reg: Docusate QD corie, Miralax daily corie, Lactulose 20 g TID VTE ppx: Heparin 5000U subQ BID GI ppx: none Code status: DNR/DNI Plan discussed with Dr. Winter and Dr. Jone Zhou MD PGY1 Attending Provider Attestation/Addendum I have examined the patient, reviewed labs and imaging findings, discussed the case with the resident(s), and reviewed entered orders. I agree with the plan of care as outlined in this note, with these additional summaries/recommendations: Patient seen at bedside. No acute overnight events. Patient appears more alert today and speaking in more complete sentences. She reports some improvement in shortness of breath but continues to have tachypnea. Patient will go for IR thoracentesis today for moderate right pleural effusion. Order fluid studies and Gram stain plus culture to rule out parapneumonic effusion. There does appear to be some loculated upper left hemithorax pleural fluid that is not enough to drain. Patient reports she has had chest tube placed in the past in [place]. Patient is adamant that she does not want bronchoscopy or any form of intubation. She is okay with thoracentesis/chest tube placement if needed. Patients son who is patients medical decision maker as declines bronchoscopy/intubation. Patient has completed antibiotics for community- acquired pneumonia and Tamiflu course for influenza. She did not receive treatment for COVID pneumonitis. Urine culture grew vancomycin-resistant Enterococcus faecium and patient receiving linezolid. Continue Mucomyst and chest physical therapy. Continue breathing treatments. In-house nephrology following for ESRD. Continue phosphate binders. Avoid nephrotoxic agents and renally dose medications. Continue midodrine for chronic hypotension. Patient has chronic constipation and will adjust bowel regimen as needed. Overall prognosis is guarded at this time. Patient updated on the plan and agreement. Dr. Jone MD
[2025-06-12] MEDS: BUDESONIDE RT 0.25 MG/2 ML NEBU INH ×2 (07:06→23:10)
[2025-06-12 07:10] LABS: LDH (Lactate Dehydrogenase) 232 U/L (120-246)
[2025-06-12] MEDS: HEPARIN SOD INJ 5000 UNIT/ML VIAL SC ×2 (08:14→21:44)
[2025-06-12] MEDS: NAPH,KPH MBDB 1 PACKET (1.5 GM) PO (08:14)
[2025-06-12] MEDS: POLYETHYLENE GLYCOL 17 GM PACKET PO ×3 (08:14→21:45)
[2025-06-12] MEDS: SEVELAMER CARBONATE 800 MG TABLET PO ×3 (08:14→17:16)
[2025-06-12] MEDS: LINEZOLID 600 MG IVPB 600 MG/300 ML BAG 300 MG IV ×2 (08:14→21:44)
[2025-06-12] MEDS: CHOLECALCIFEROL (Vitamin D3) 1,000 IU TABLET 1000 IU PO (08:18)
[2025-06-12] MEDS: DOCUSATE SOD 100 MG CAPSULE PO (08:18)
[2025-06-12] MEDS: ASPIRIN EC 81 MG TABEC PO (08:18)
[2025-06-12] MEDS: VIT B12/Vit C/FA (Nephrovite) TABLET 1 TAB PO (10:20)
--- NOTE | 2025-06-12 12:17 | PD.NEPHPROG ---
Documentation for date of: 06/12/25 Subjective Subjective Interval history: 85 y/o female with PMH of CHF, insulin-dependent DM, CAD s/p CABG, ESRD on HD MWF, hypertension and asthma who presented to the ED on 06/04 for progressive shortness of breath and productive cough x4 days. Per ED note, she had a fever and was COVID positive prior to coming to the ED by ambulance. She denies hemoptysis, chest pain/pressure, headache, acute changes in vision, leg swelling, N/V, abdominal pain, or changes in bowel movements. She missed her dialysis Pt had dialysis yesterday. Pt c/o SOB Exam Vital Signs Temp Pulse Resp BP Pulse Ox O2 Del Method O2 Flow Rate 97.3 F 96 42 H 113/50 L 97 Nasal Cannula 4 06/12/25 08:00 06/12/25 11:02 06/12/25 11:02 06/12/25 08:36 06/12/25 11:02 06/12/25 08:00 06/12/25 11:02 FiO2 40 06/11/25 09:48 Narrative Exam sick looking chest bailateral crackles Objective Labs 06/12/25 04:47 06/12/25 04:47 Labs: Laboratory Results - last 24 hr 06/12/25 04:47 WBC 5.5 D RBC 3.29 L Hgb 10.8 L Hct 34.3 L MCV 104 H MCH 32.8 MCHC 31.5 RDW Std Deviation 61.7 H Plt Count 179 Neut % (Auto) 71 Lymph % (Auto) 17 [place] % (Auto) 9 Eos % (Auto) 2 Baso % (Auto) 1 Neut # (Auto) 3.9 Lymph # (Auto) 0.9 L [place] # (Auto) 0.5 Eos # (Auto) 0.1 Baso # (Auto) 0.0 Immature Gran # (Auto) 0.02 H Absolute Nucleated RBC 0.00 Immature Gran % 0 Nucleated RBC % 0 Sodium 136 Potassium 3.6 D Chloride 100 Carbon Dioxide 26.5 Anion Gap 10 BUN 11 Creatinine 2.3 H D Estim Creat Clear Calc 12.4 L eGFR 20 L BUN/Creatinine Ratio 5 L Glucose 106 Calculated Osmolality 271 L Calcium 9.7 Corrected Calcium 9.8 Phosphorus 1.9 L Magnesium 2.1 Total Bilirubin 0.5 AST 33 ALT 14 Alkaline Phosphatase 84 Lactate Dehydrogenase 232 Total Protein 6.0 Albumin 3.9 Globulin 2.1 L Albumin/Globulin Ratio 1.9 ABG Interpretation ABG results: 06/04/25 15:40 ABG pH 7.38 ABG pCO2 52 H ABG pO2 148 H ABG HCO3 31 H ABG O2 Saturation 100 H ABG Base Excess 5 H Assessment & Plan Assessment and plan (1) Hypoxia: Status: Acute (2) Influenza: Status: Acute (3) COVID-19: Status: Acute (4) Community acquired pneumonia: Status: Acute (5) Congestive heart failure: Status: Acute (6) Coronary artery disease: Status: Acute (7) Status post aorto-coronary artery bypass graft: Status: Acute (8) ESRD (end stage renal disease) on dialysis: Status: Acute Assessment and plan: Pt had dialysis yesterday will; do dialysis again tomorrow
[2025-06-12] MEDS: INSULIN LISPRO (AdmeLOG) 1 UNIT/0.01 ML UNIT SC (12:34)
--- NOTE | 2025-06-12 14:29 | PC.SS ---
Rounding Note: As per team, the pt is waiting on a thoracentesis today. Pt will need a AUTH and PASSR in order to return to [facility].
[2025-06-12] MEDS: LACTULOSE SYRUP 20 GM/30 ML UDC 30 GM PO ×2 (14:53→21:43)
[2025-06-12] MEDS: ATORVASTATIN CALCIUM 20 MG TABLET PO (21:41)
[2025-06-12] MEDS: MIRTAZAPINE 15 MG TABLET PO (21:43)
[2025-06-12] MEDS: PRAMIPEXOLE 0.25 MG TABLET PO (21:43)
[2025-06-13] VITALS (32 sets, daily range): BP systolic 92–129; BP diastolic 43–64; PULSE 67–94; RESP 15–24; TEMP 36.1–36.7; O2SAT 97–100; BMI 21.0; BMI 11.0
[2025-06-13] MEDS: ALBUTEROL/IPRATROPIUM (Duoneb) RT SOL 3 ML NEBU INH ×4 (04:23→19:29)
[2025-06-13] MEDS: ACETYLCYSTEINE SOL 20% 4 ML NEBU 3 ML INH ×2 (04:23→10:48)
[2025-06-13] MEDS: MIDODRINE 5 MG TABLET PO ×3 (05:38→21:23)
[2025-06-13 06:10] LABS: Basophils # (Auto) 0.0 Thou/mm3 (0.0-0.2); Basophils % (Auto) 0 % (0-2.5); Eosinophils # (Auto) 0.2 Thou/mm3 (0.0-0.5); Eosinophils % (Auto) 3 % (0-10); Hematocrit 32.9 % (36.0-46.0); Hemoglobin 10.3 g/dL (12.0-16.0); Immature Granulocytes Auto 0.03 Thou/mm3 (0.00-0.00); Lymphocytes # (Auto) 1.2 Thou/mm3 (1.0-4.8); Lymphocytes % (Auto) 24 % (10-50); Mean Corpuscular HGB Conc 31.3 g/dl (31.0-37.0); Mean Corpuscular Hemoglobin 33.0 pg (25.0-35.0); Mean Corpuscular Volume 105 fL (80-100); Monocytes # (Auto) 0.5 Thou/mm3 (0.0-0.8); Monocytes % (Auto) 10 % (0-12); Neutrophils # (Auto) 3.2 Thou/mm3 (1.8-7.7); Neutrophils % (Auto) 62 % (37-80); Nucleated Red Blood Cell # 0.00 Thou/mm3 (0.00-0.00); Nucleated Red Blood Cell % 0 /100 WBC (0); Platelet Count 166 Thou/mm3 (140-440); RDW Standard Deviation 62.8 fL (36.4-46.3); Red Blood Count 3.12 Miln/mm3 (4.00-5.20); White Blood Count 5.1 Thou/mm3 (3.6-11.0)
[2025-06-13 06:12] LABS: Alanine Aminotransferase 13 U/L (10-49); Albumin, Serum 3.8 gm/dL (3.4-4.8); Albumin/Globulin Ratio 1.8 (1.2-2.2); Alkaline Phosphatase 84 U/L (46-116); Anion Gap 12 (7-16); Aspartate Amino Transferase 11 U/L (0-34); BUN/Creatinine Ratio 5 Ratio (12-20); Bilirubin,Total 0.5 mg/dL (0.3-1.2); Blood Urea Nitrogen 18 mg/dL (9-23); Calcium 9.8 mg/dL (8.3-10.6); Calcium (Corrected) 10.0 mg/dL (8.5-10.1); Carbon Dioxide 26.4 mMol/L (20.0-31.0); Chloride 98 mMol/L (98-107); Creatinine (Component) 3.3 mg/dL (0.6-1.3); Estimated Creatinine Clearance 8.7 mL/min (>60); Globulin 2.1 gm/dL (2.3-3.5); Glucose 93 mg/dL (74-106); Magnesium 2.4 mg/dL (1.6-2.6); Osmolality,Calculated 273 (275-295); Phosphorous 2.4 mg/dL (2.4-5.1); Potassium 4.2 mMol/L (3.4-5.1); Sodium 136 mMol/L (136-145); Total Protein 5.9 gm/dL (5.7-8.2); eGFR 13 See Note
[2025-06-13] MEDS: BUDESONIDE RT 0.25 MG/2 ML NEBU INH ×2 (07:19→19:36)
--- NOTE | 2025-06-13 08:04 | ESPR_ITS ---
<Statement entered by Suraj Bergman MD - 06/13/25 22:50> Patient was examined and case was reviewed with team including attending physician. Note reviewed, I agree with most of its contents and agree with the patient's care as documented by Dr. Valladares Patient seen today at the bedside found awake, alert. No overnight events reported. Vital signs stable at this time. Oxygen requirement have decreased dramatically. Patient endorses continued improvement in her breathing. Patient currently on Zyvox for tx of VRE UTI. Will continue with breathing treatments, and chest physiotherapy at this alea. Case discussed with my attending Dr. Coco Bergman MD PGY-2 Disclaimer: Despite multiple revisions, due to the dictation software being used, the document bellow may not be free of grammatical errors including phonetic/typographic errors. However, this does not deter from our commitment to providing health care in the patient's best interest in mind. Documentation for date of: 06/13/25 Subjective Subjective Interval history: 06/13/25: EVELIOEO. VSS. Patient is now saturating at 100% on 3L of oxygen (improved from yesterday). Patient reports improvement in her shortness of breath and is now breathing much better. Patient will have her dialysis session later today at 1300. Exam Vital Signs Temp Pulse Resp BP Pulse Ox O2 Del Method O2 Flow Rate 97.1 F 76 18 121/64 100 Humidified Nasal Cannula 3 06/13/25 04:00 06/13/25 07:21 06/13/25 07:21 06/13/25 05:38 06/13/25 07:21 06/13/25 04:00 06/13/25 07:21 FiO2 40 06/11/25 09:48 Narrative Exam General: Elderly female, appears stated age, no acute distress Eye: PERRL, EOMI, normal conjunctiva, no scleral icterus HENT: Normocephalic, atraumatic, normal hearing, moist oral mucosa, difficulty with hearing Neck: Supple, non-tender, no JVD, no lymphadenopathy Lungs: spO2 100% 3L, no crackles appreciated, improved breathing, symmetric chest rise Heart: Normal S1 and S2, no S3 or S4 appreciated. Normal rate and regular rhythm, no murmurs, rubs gallops, or edema. Peripheral pulses intact bilaterally, capillary refill brisk distally. Fistula of left arm, warm, non- tender, no erythema. Abdomen: Soft, non-distendedNo guarding or rebound tenderness. Musculoskeletal: Normal range of motion and strength, no tenderness or swelling Skin: Skin is warm, dry, no rashes or lesions. Neurologic: Alert, awake and oriented x2. No focal neuro deficits. Psychiatric: Cooperative, appropriate mood and affect Objective Labs 06/14/25 05:50 06/14/25 05:50 Labs: Laboratory Results - last 24 hr 06/13/25 04:56 WBC 5.1 RBC 3.12 L Hgb 10.3 L Hct 32.9 L MCV 105 H MCH 33.0 MCHC 31.3 RDW Std Deviation 62.8 H Plt Count 166 Neut % (Auto) 62 Lymph % (Auto) 24 Wagoner % (Auto) 10 Eos % (Auto) 3 Baso % (Auto) 0 Neut # (Auto) 3.2 Lymph # (Auto) 1.2 Wagoner # (Auto) 0.5 Eos # (Auto) 0.2 Baso # (Auto) 0.0 Immature Gran # (Auto) 0.03 H Absolute Nucleated RBC 0.00 Immature Gran % 1 H Nucleated RBC % 0 Sodium 136 Potassium 4.2 D Chloride 98 Carbon Dioxide 26.4 Anion Gap 12 BUN 18 Creatinine 3.3 H D Estim Creat Clear Calc 8.7 L eGFR 13 L* BUN/Creatinine Ratio 5 L Glucose 93 Calculated Osmolality 273 L Calcium 9.8 Corrected Calcium 10.0 Phosphorus 2.4 Magnesium 2.4 Total Bilirubin 0.5 AST 11 ALT 13 Alkaline Phosphatase 84 Total Protein 5.9 Albumin 3.8 Globulin 2.1 L Albumin/Globulin Ratio 1.8 ABG Interpretation ABG results: 06/04/25 15:40 ABG pH 7.38 ABG pCO2 52 H ABG pO2 148 H ABG HCO3 31 H ABG O2 Saturation 100 H ABG Base Excess 5 H Quality Measures Quality Measures VTE prophylaxis Advance care planning discussed with:: child Assessment & Plan Assessment Current Active Medications: Generic Name Dose Route Start Last Admin Trade Name Freq PRN Reason Stop Dose Admin Acetaminophen 650 mg 06/04/25 17:31 Acetaminophen 325 Mg Tablet PO 07/04/25 17:30 Q6H PRN Fever >101.5 Acetaminophen 650 mg 06/04/25 17:31 Acetaminophen 325 Mg Tablet PO 07/04/25 17:30 Q6H PRN PAIN SCALE 1-3 (mild Acetylcysteine 3 ml 06/11/25 15:00 06/13/25 07:20 Acetylcysteine [place] 20% 4 Ml Nebu INH 07/11/25 14:59 Not Given Q4HRRT CORIE Albuterol 2 puff 06/08/25 10:03 Albuterol Inh 8 Gm INH 07/08/25 10:02 Q4HR PRN SHORTNESS OF BREATH OR WHEEZE Albuterol/Ipratropium 3 ml 06/11/25 15:00 06/13/25 07:19 Albuterol/Ipratropium (Duoneb) Rt [place] 3 Ml Nebu INH 07/11/25 14:59 3 ml Q4HRRT CORIE Administration Aspirin 81 mg 06/04/25 21:00 06/12/25 08:18 Aspirin Ec 81 Mg Tabec PO 07/04/25 20:59 81 mg QDAY CORIE Administration Atorvastatin Calcium 20 mg 06/05/25 21:00 06/12/25 21:41 Atorvastatin Calcium 20 Mg Tablet PO 07/05/25 20:59 20 mg HS CORIE Administration Budesonide 0.25 mg 06/11/25 19:00 06/13/25 07:19 Budesonide Rt 0.25 Mg/2 Ml Nebu INH 07/11/25 18:59 0.25 mg BIDRT CORIE Administration Dextrose 25 ml 06/04/25 19:37 Dextrose 50%-Water Inj 50 Ml Syringe IV 07/04/25 19:36 Q15MIN PRN BG 50-70 responsive npo pt Dextrose 50 ml 06/04/25 19:37 Dextrose 50%-Water Inj 50 Ml Syringe IV 07/04/25 19:36 Q15MIN PRN BG <50 OR BG <70 & pt unresponsive Docusate Sodium 100 mg 06/10/25 09:45 06/12/25 08:18 Docusate Sod 100 Mg Capsule PO 07/10/25 09:44 100 mg QDAY CORIE Administration Protocol Furosemide 20 mg 06/13/25 09:00 Furosemide 40 Mg Tablet PO 07/13/25 08:59 QDAY CORIE Glucagon 1 mg 06/04/25 19:37 Glucagon Inj 1 Mg Vial IM Q15MIN PRN BG <70, and no IV access Guaifenesin 600 mg 06/11/25 13:45 06/13/25 05:38 Guaifenesin Er 600 Mg Tabcr PO 07/11/25 13:44 600 mg Q4H CORIE Administration Heparin Sodium (Porcine) 5,000 unit 06/04/25 17:45 06/12/25 21:44 Heparin Sod Inj 5000 Unit/Ml Vial SC 06/18/25 17:44 5,000 unit Q12HR CORIE Administration Heparin Sodium (Porcine) 3,700 unit 06/05/25 16:35 06/09/25 15:17 Heparin Sod Inj 1000 Unit/Ml Vial 10 Ml INDWELLCAT 06/19/25 16:34 3,700 unit X1 PRN Administration DIALYSIS Albumin Human 25 gm in 100 mls @ 100 mls/min 06/09/25 07:13 06/09/25 14:35 Albuminar-25 Ivpb IV Infused PRN PRN Infusion DIALYSIS Linezolid 600 mg in 300 mls @ 300 mls/hr 06/09/25 07:33 06/12/25 21:44 Zyvox Ivpb IV 06/16/25 07:32 300 mls/hr Q12HR CORIE Administration Protocol Insulin Human Lispro 0 unit 06/07/25 07:30 06/12/25 22:00 Insulin Lispro (Admelog) 1 Unit/0.01 Ml Unit SC 07/07/25 07:29 Not Given ACHS CORIE Protocol Lactulose 30 gm 06/12/25 14:00 06/13/25 05:43 Lactulose Syrup 20 Gm/30 Ml Udc PO 07/12/25 13:59 Not Given TID CORIE Protocol Midodrine 5 mg 06/04/25 22:00 06/13/25 05:38 Midodrine 5 Mg Tablet PO 07/04/25 21:59 5 mg TID CORIE Administration Mirtazapine 15 mg 06/05/25 21:00 06/12/25 21:43 Mirtazapine 15 Mg Tablet PO 07/05/25 20:59 15 mg HS CORIE Administration Ondansetron HCl 4 mg 06/04/25 17:31 Ondansetron Inj 2 Mg/Ml Inj 2 Ml IVP 07/04/25 17:30 Q6H PRN NAUSEA OR VOMITING Protocol Polyethylene Glycol 17 gm 06/12/25 14:00 06/13/25 05:43 Polyethylene Glycol 17 Gm Packet PO 07/12/25 13:59 Not Given TID CORIE Pramipexole Dihydrochloride 0.25 mg 06/12/25 21:00 06/12/25 21:43 Pramipexole 0.25 Mg Tablet PO 07/12/25 20:59 0.25 mg HS CORIE Administration Sevelamer Carbonate 800 mg 06/05/25 08:00 06/12/25 17:16 Sevelamer Carbonate 800 Mg Tablet PO 07/05/25 07:59 800 mg TIDWM CORIE Administration Vitamin B Complex/Vit C/Folic Acid 1 tab 06/12/25 09:15 06/12/25 10:20 Vit B12/Vit C/Fa (Nephrovite) Tablet PO 07/12/25 09:14 1 tab QDAY CORIE Administration Vitamin D 1,000 iu 06/05/25 09:00 06/12/25 08:18 Cholecalciferol (Vitamin D3) 1,000 Iu Tablet PO 07/05/25 08:59 1,000 iu QDAY CORIE Administration Plan Ms. Baeza is 85 y/o female with PMH of CHF, insulin-dependent DM, CAD s/p CABG, ESRD on HD MWF, hypertension who presented to the ED from [facility] on 06/04 for progressive shortness of breath and productive cough x4 days. Admitted for AHRF and sepsis 2/2 CAP, COVID pneumonitis, influenza A and B, VRE UTI, management of acute CHF exacerbation. Getting HD MWF. #Acute hypoxic respiratory failure - improving #Community-acquired pneumonia #COVID pneumonitis #Influenza Initial sx of progressive shortness of breath, hypoxic, started on OxyMask, on BiPAP On home O2 2-3L Influenza A and B positive, COVID PCR positive Completed course Azitrhomycin 500 mg IV QD x 3 days (06/04 - 06/06), Ceftriaxone 1 g IV QD x 5 days (06/04 - 06/08), Tamiflu 30 mg QD x 5 days (06/04 - 06/08) Improved spO2 100% on 3L today, clinical improvement in patient's subjective shortness of breath. Patient reports improvement in her breathing. CT chest shows prominent vascular congestion with perihilar edema, extensive PNA of both lungs, diffusely in the left lung and RLL. Moderate right pleural effusion, loculated upper left hemithorax pleural fluid. Patient and son (MPOA) refused BAL, as she does not want to be intubated. Son consented over the phone for thoracentesis, chest tube. US guided thoracenthesis was performed yesterday which was somewhat unsuccessful in draining much fluid. Repeat chest x-ray was done today which showed improvement in left lung aeration and moderate CHF. Given objective and subjective improvement of patient's condition, patient most likely to be safe for discharge to SNF if remains stable on 3L of oxygen. Plan: - Continue home dose lasix 20 mg PO daily - Albuterol inhaler q4h PRN, - Budesonide inh BID - Duoneb q6h, Mucomist q6h, guaifenasin q6h corie - Chest physiotherapy daily - Incentive spirometer - supplemental O2 PRN - Pending pleural fluid analysis, pleural pH, serum LDH on 06/12 AM #VRE UTI Hx of recurrent UTIs (3 within the past year) Denies burning with urination, increased urgency Plan: - Continue Linezolid 600 mg BID IV (06/09-06/15) #Sepsis - resolved Temp > 100.4 (Tmax 101.3), HR > 90 (max 93), RR > 20 (max 35) + suspected source of infection (PNA, UTI) Fluids NOT given as pt appeared to be fluid overloaded (IVC non-collapsible, elevated BNP, and imaging findings of vascular congestion and perihilar edema), has ESRD and missed HD 06/04 Continues to be afebrile, no leukocytosis Blood cx NGTD at 48h Plan: - CTM vitals - Tylenol PRN for fever #Acute CHF exacerbation Decreased amount of crackles on auscultation since initial exam. Dry oral mucosa, no lower extremity edema. 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 Dumont Left arm swelling (site of fistula for HD), warmth 8/9 overnight. US LUE showed no DVT. Plan: - Hemodialysis per Dr. Dumont. Hemodialysis today at 1300 - Continued home Sevelamer 80 mg TID w/ meals - Continue Lasix 20 mg PO daily - Avoid nephrotoxic agents - Renally dose meds #CAD s/p CABG Denies chest pain/pressure Lipid panel WNL Plan: - Continue home ASA 81 mg daily, atorvastatin 20 mg QHS #Troponinemia - downtrending Denies chest pain/pressure Trop 0.293 --> 0.241 Most likely 2/2 demand ischemia i/s/o sepsis Plan: - CTM for s/sx of cardiac injury, but no need to trend troponins as they are now downtrending #Hepatits B core IgM Ab positive Denies abdominal sx, not jaundiced, no AMS Hepatitis B antigen nonreactive, Hepatitis B Ab (immune) nonreactive, Hepatitis B core IgM Ab reactive AST 41, ALT WNL, alk phos WNL, total bili WNL. PT 12.5, INR and PTT WNL Window period, recent hep B infection Plan: - Repeat Hepatitis B panel in several weeks to confirm trend. - CTM symptoms, LFTs #Insulin-dependent DM Initial BG 143 A1C 6.9 Plan: - SSI #Macrocytic anemia On admit: Hgb 10.6, HCT 34.4, MCV 109. No anemia present on previous CBC 04/20/24 Hgb stable B12 1306 high, folate WNL, reticulocyte count WNL, TSH WNL Most likely secondary to ESRD on HD Plan: - CTM with daily CBC #Hyperkalemia Plan: - Hemodialysis as above - CTM with CMP #Constipation - improving 1 small BM today. Continues to have diffuse abdominal TTP. Patient states that she feels like she needs to have a bowel movement. Plan: - Docusate daily corie, Miralax daily corie, Lactulose 20 g TID #Restless leg syndrome Plan: - Held home pramipexole i/s/o CHF / fluid overload Dispo: PNA and CHF tx, HD Diet: Cardiac Bowel Reg: Docusate QD corie, Miralax daily corie, Lactulose 20 g TID VTE ppx: Heparin 5000U subQ BID GI ppx: none Code status: DNR/DNI Plan discussed with Dr. Winter and Dr. Coco Valladares, DO PGY1 Attending Provider Attestation/Addendum ILeonie DO, attest that I was physically present for the oliva portions of the service and evaluated the patient with the resident and I reviewed and discussed the case with the resident and agree with the resident's findings and plans of care as documented above Patient seen and evaluated this AM. Patient states she is feeling improved. CXR appears much improved with breathing treatments and mucolytics. Patient currently on 3L/NC. Will increase interval of breathing treatments. If patient remains on 3L/NC, anticipate DC back to SNF within next 24-48h
--- NOTE | 2025-06-13 08:10 | XR_ITS ---
Examination: AP chest single view Technique one AP portable upright chest single view Date and time: June 13, 2025 0825 hours Comparison June 11, 2025 INDICATIONS: Post thoracentesis FINDINGS: Improved aeration left lung Moderate CHF, enlarged cardiac contour, CABG, prominent vascular congestion with perihilar edema Cardiac leads stable position. Right internal jugular dialysis catheter tips SVC satisfactory position IMPRESSION: Moderate CHF
[2025-06-13] MEDS: VIT B12/Vit C/FA (Nephrovite) TABLET 1 TAB PO (09:55)
[2025-06-13] MEDS: ASPIRIN EC 81 MG TABEC PO (09:55)
[2025-06-13] MEDS: SEVELAMER CARBONATE 800 MG TABLET PO ×2 (09:55→12:13)
[2025-06-13] MEDS: LINEZOLID 600 MG IVPB 600 MG/300 ML BAG 300 MG IV ×2 (09:56→21:23)
[2025-06-13] MEDS: HEPARIN SOD INJ 5000 UNIT/ML VIAL SC ×2 (09:56→21:25)
[2025-06-13] MEDS: CHOLECALCIFEROL (Vitamin D3) 1,000 IU TABLET 1000 IU PO (09:59)
[2025-06-13] MEDS: INSULIN LISPRO (AdmeLOG) 1 UNIT/0.01 ML UNIT SC ×2 (12:16→21:33)
--- NOTE | 2025-06-13 16:00 | PC.NURSE ---
BP TRENDING DOWN, PT DENIES ALL S/S OF HYPOTENSION. WILL ADMIN PRN ALBUMIN AND CONT. TO MONITOR
[2025-06-13] MEDS: ALBUMIN HUMAN 25% IVPB 25 GM/100 ML BTL IV (16:04)
--- NOTE | 2025-06-13 16:15 | PC.NURSE ---
BP CONT. TO TREND DOWN, PT DENIES ALL COMPLAINTS, UF GOAL LOWERED TO 1.5L TOLERATED WILL CONT. TO MONITOR
--- NOTE | 2025-06-13 16:23 | PC.NURSE ---
BP CONT'S. TO TREND DOWN, PT REMAINS ASYMPTOMATIC. UF GOAL LOWERED TO 1.5L TOLERATED, WILL CONT. TO MONITOR.
--- NOTE | 2025-06-13 16:46 | PC.NURSE ---
BP CONT. TO TREND UP, UF GOAL INCREASED TO 1.5L TOLERATED, WILL CONT. TO MONITOR
--- NOTE | 2025-06-13 16:56 | PC.SS ---
Addendum entered by ZEINA Dean 06/13/25 17:24: needs auth from [employer] and [employer] Original Note: rounding note: d/c to [facility] 1 more day.
[2025-06-13] MEDS: HEPARIN SOD INJ 1000 UNIT/ML VIAL 10 ML 3700 UNIT INDWELLCAT (18:44)
[2025-06-13] MEDS: PRAMIPEXOLE 0.25 MG TABLET PO (21:23)
[2025-06-13] MEDS: MIRTAZAPINE 15 MG TABLET PO (21:23)
[2025-06-13] MEDS: ATORVASTATIN CALCIUM 20 MG TABLET PO (21:23)
[2025-06-14] VITALS (14 sets, daily range): BP systolic 102–129; BP diastolic 49–62; PULSE 80–110; RESP 12–37; TEMP 36.2–37.2; O2SAT 95–100
[2025-06-14] MEDS: ALBUTEROL/IPRATROPIUM (Duoneb) RT SOL 3 ML NEBU INH ×4 (00:39→19:27)
[2025-06-14] MEDS: MIDODRINE 5 MG TABLET PO ×2 (05:29→14:08)
[2025-06-14] MEDS: BUDESONIDE RT 0.25 MG/2 ML NEBU INH ×2 (06:17→19:27)
[2025-06-14 06:21] LABS: Basophils # (Auto) 0.0 Thou/mm3 (0.0-0.2); Basophils % (Auto) 1 % (0-2.5); Eosinophils # (Auto) 0.2 Thou/mm3 (0.0-0.5); Eosinophils % (Auto) 3 % (0-10); Hematocrit 32.9 % (36.0-46.0); Hemoglobin 10.2 g/dL (12.0-16.0); Immature Granulocytes Auto 0.02 Thou/mm3 (0.00-0.00); Lymphocytes # (Auto) 1.0 Thou/mm3 (1.0-4.8); Lymphocytes % (Auto) 16 % (10-50); Mean Corpuscular HGB Conc 31.0 g/dl (31.0-37.0); Mean Corpuscular Hemoglobin 32.5 pg (25.0-35.0); Mean Corpuscular Volume 105 fL (80-100); Monocytes # (Auto) 0.6 Thou/mm3 (0.0-0.8); Monocytes % (Auto) 9 % (0-12); Neutrophils # (Auto) 4.4 Thou/mm3 (1.8-7.7); Neutrophils % (Auto) 72 % (37-80); Nucleated Red Blood Cell # 0.00 Thou/mm3 (0.00-0.00); Nucleated Red Blood Cell % 0 /100 WBC (0); Platelet Count 174 Thou/mm3 (140-440); RDW Standard Deviation 62.7 fL (36.4-46.3); Red Blood Count 3.14 Miln/mm3 (4.00-5.20); White Blood Count 6.2 Thou/mm3 (3.6-11.0)
[2025-06-14 06:43] LABS: Alanine Aminotransferase 10 U/L (10-49); Albumin, Serum 4.0 gm/dL (3.4-4.8); Albumin/Globulin Ratio 2.0 (1.2-2.2); Alkaline Phosphatase 80 U/L (46-116); Anion Gap 12 (7-16); Aspartate Amino Transferase 21 U/L (0-34); BUN/Creatinine Ratio 6 Ratio (12-20); Bilirubin,Total 0.7 mg/dL (0.3-1.2); Blood Urea Nitrogen 14 mg/dL (9-23); Calcium 10.2 mg/dL (8.3-10.6); Calcium (Corrected) 10.2 mg/dL (8.5-10.1); Carbon Dioxide 26.1 mMol/L (20.0-31.0); Chloride 99 mMol/L (98-107); Creatinine (Component) 2.3 mg/dL (0.6-1.3); Estimated Creatinine Clearance 12.4 mL/min (>60); Globulin 2.0 gm/dL (2.3-3.5); Glucose 92 mg/dL (74-106); Magnesium 1.7 mg/dL (1.6-2.6); Osmolality,Calculated 274 (275-295); Phosphorous 1.8 mg/dL (2.4-5.1); Potassium 4.3 mMol/L (3.4-5.1); Sodium 137 mMol/L (136-145); Total Protein 6.0 gm/dL (5.7-8.2); eGFR 20 See Note
[2025-06-14] MEDS: NAPH,KPH MBDB 1 PACKET (1.5 GM) PO (08:08)
[2025-06-14] MEDS: MAGNESIUM OXIDE 400 MG TABLET PO (08:08)
[2025-06-14] MEDS: CHOLECALCIFEROL (Vitamin D3) 1,000 IU TABLET 1000 IU PO (08:09)
[2025-06-14] MEDS: VIT B12/Vit C/FA (Nephrovite) TABLET 1 TAB PO (08:09)
[2025-06-14] MEDS: HEPARIN SOD INJ 5000 UNIT/ML VIAL SC ×2 (08:10→21:38)
[2025-06-14] MEDS: DOCUSATE SOD 100 MG CAPSULE PO (08:10)
[2025-06-14] MEDS: ASPIRIN EC 81 MG TABEC PO (08:10)
[2025-06-14] MEDS: LINEZOLID 600 MG IVPB 600 MG/300 ML BAG 300 MG IV (09:37)
[2025-06-14] MEDS: ONDANSETRON INJ 2 MG/ML INJ 2 ML 4 MG IVP (11:57)
--- NOTE | 2025-06-14 12:21 | ESPR_ITS ---
<Statement entered by Suraj Bergman MD - 06/14/25 13:18> Patient was examined and case was reviewed with team including attending physician. Note reviewed, I agree with most of its contents and agree with the patient's care as documented by Dr. Zhou Patient seen today at the bedside found awake, alert, orientedx3. No overnight events reported. Vitals and labs reviewed. States overall improvement in respiratory status. Saturating on her baseline oxygen of 2 to 3 L 99%. Patient after receiving antibiotic therapy started developing some nausea Zofran was given. Patient is currently pending insurance authorization. Possible discharge in next 24-48 hours. Case discussed with my attending Dr. Coco Bergman MD PGY-2 Disclaimer: Despite multiple revisions, due to the dictation software being used, the document bellow may not be free of grammatical errors including phonetic/typographic errors. However, this does not deter from our commitment to providing health care in the patient's best interest in mind. Documentation for date of: 06/14/25 Subjective Subjective Interval history: NAEO E. Patient continues to be tachypneic to the 30s. SpO2 appropriate on 2 to 3 L O2. Patient reports increased nausea, getting Zofran. Otherwise does not for any new symptoms. Pending insurance authorization for patient return to [facility] after discharge. Exam Vital Signs Temp Pulse Resp BP Pulse Ox O2 Del Method O2 Flow Rate 97.1 F 88 34 H 123/53 L 100 Nasal Cannula 2 06/14/25 08:00 06/14/25 12:18 06/14/25 12:18 06/14/25 08:08 06/14/25 12:18 06/14/25 08:00 06/14/25 12:18 FiO2 40 06/13/25 16:00 Narrative Exam General: Elderly female, appears stated age, no acute distress Eye: PERRL, EOMI, normal conjunctiva, no scleral icterus HENT: Normocephalic, atraumatic, normal hearing, moist oral mucosa, difficulty with hearing Neck: Supple, non-tender, no JVD, no lymphadenopathy Lungs: spO2 100% 3L, no crackles appreciated, improved breathing, symmetric chest rise Heart: Normal S1 and S2, no S3 or S4 appreciated. Normal rate and regular rhythm, no murmurs, rubs gallops, or edema. Peripheral pulses intact bilaterally, capillary refill brisk distally. Fistula of left arm, warm, non- tender, no erythema. Abdomen: Soft, non-distendedNo guarding or rebound tenderness. Musculoskeletal: Normal range of motion and strength, no tenderness or swelling Skin: Skin is warm, dry, no rashes or lesions. Neurologic: Alert, awake and oriented x2. No focal neuro deficits. Psychiatric: Cooperative, appropriate mood and affect Objective Labs 06/15/25 06:24 06/15/25 06:24 Labs: Laboratory Results - last 24 hr 06/14/25 05:50 WBC 6.2 RBC 3.14 L Hgb 10.2 L Hct 32.9 L MCV 105 H MCH 32.5 MCHC 31.0 RDW Std Deviation 62.7 H Plt Count 174 Neut % (Auto) 72 Lymph % (Auto) 16 Brantley % (Auto) 9 Eos % (Auto) 3 Baso % (Auto) 1 Neut # (Auto) 4.4 Lymph # (Auto) 1.0 Brantley # (Auto) 0.6 Eos # (Auto) 0.2 Baso # (Auto) 0.0 Immature Gran # (Auto) 0.02 H Absolute Nucleated RBC 0.00 Immature Gran % 0 Nucleated RBC % 0 Sodium 137 Potassium 4.3 Chloride 99 Carbon Dioxide 26.1 Anion Gap 12 BUN 14 Creatinine 2.3 H D Estim Creat Clear Calc 12.4 L eGFR 20 L BUN/Creatinine Ratio 6 L Glucose 92 Calculated Osmolality 274 L Calcium 10.2 Corrected Calcium 10.2 H Phosphorus 1.8 L Magnesium 1.7 Total Bilirubin 0.7 AST 21 ALT 10 Alkaline Phosphatase 80 Total Protein 6.0 Albumin 4.0 Globulin 2.0 L Albumin/Globulin Ratio 2.0 ABG Interpretation ABG results: 06/04/25 15:40 ABG pH 7.38 ABG pCO2 52 H ABG pO2 148 H ABG HCO3 31 H ABG O2 Saturation 100 H ABG Base Excess 5 H Quality Measures Quality Measures VTE prophylaxis Advance care planning discussed with:: patient Assessment & Plan Assessment Current Active Medications: Generic Name Dose Route Start Last Admin Trade Name Freq PRN Reason Stop Dose Admin Acetaminophen 650 mg 06/04/25 17:31 Acetaminophen 325 Mg Tablet PO 07/04/25 17:30 Q6H PRN Fever >101.5 Acetaminophen 650 mg 06/04/25 17:31 Acetaminophen 325 Mg Tablet PO 07/04/25 17:30 Q6H PRN PAIN SCALE 1-3 (mild Albuterol 2 puff 06/08/25 10:03 Albuterol Inh 8 Gm INH 07/08/25 10:02 Q4HR PRN SHORTNESS OF BREATH OR WHEEZE Albuterol/Ipratropium 3 ml 06/13/25 19:00 06/14/25 12:07 Albuterol/Ipratropium (Duoneb) Rt Chinyere 3 Ml Nebu INH 07/13/25 18:59 3 ml Q6HRRT CORIE Administration Aspirin 81 mg 06/04/25 21:00 06/14/25 08:10 Aspirin Ec 81 Mg Tabec PO 07/04/25 20:59 81 mg QDAY CORIE Administration Atorvastatin Calcium 20 mg 06/05/25 21:00 06/13/25 21:23 Atorvastatin Calcium 20 Mg Tablet PO 07/05/25 20:59 20 mg HS CORIE Administration Budesonide 0.25 mg 06/11/25 19:00 06/14/25 06:17 Budesonide Rt 0.25 Mg/2 Ml Nebu INH 07/11/25 18:59 0.25 mg BIDRT CORIE Administration Dextrose 25 ml 06/04/25 19:37 Dextrose 50%-Water Inj 50 Ml Syringe IV 07/04/25 19:36 Q15MIN PRN BG 50-70 responsive npo pt Dextrose 50 ml 06/04/25 19:37 Dextrose 50%-Water Inj 50 Ml Syringe IV 07/04/25 19:36 Q15MIN PRN BG <50 OR BG <70 & pt unresponsive Docusate Sodium 100 mg 06/10/25 09:45 06/14/25 08:10 Docusate Sod 100 Mg Capsule PO 07/10/25 09:44 100 mg QDAY CORIE Administration Protocol Furosemide 20 mg 06/13/25 10:00 06/14/25 08:08 Furosemide 20 Mg Tablet PO 07/13/25 09:59 20 mg QDAY CORIE Administration Glucagon 1 mg 06/04/25 19:37 Glucagon Inj 1 Mg Vial IM Q15MIN PRN BG <70, and no IV access Guaifenesin 600 mg 06/13/25 12:00 06/14/25 11:58 Guaifenesin Er 600 Mg Tabcr PO 07/13/25 11:59 600 mg Q6HR CORIE Administration Heparin Sodium (Porcine) 5,000 unit 06/04/25 17:45 06/14/25 08:10 Heparin Sod Inj 5000 Unit/Ml Vial SC 06/18/25 17:44 5,000 unit Q12HR CORIE Administration Heparin Sodium (Porcine) 3,700 unit 06/05/25 16:35 06/13/25 18:44 Heparin Sod Inj 1000 Unit/Ml Vial 10 Ml INDWELLCAT 06/19/25 16:34 3,700 unit X1 PRN Administration DIALYSIS Albumin Human 25 gm in 100 mls @ 100 mls/min 06/09/25 07:13 06/13/25 16:04 Albuminar-25 Ivpb IV 100 mls/min PRN PRN Administration DIALYSIS Insulin Human Lispro 0 unit 06/07/25 07:30 06/14/25 08:11 Insulin Lispro (Admelog) 1 Unit/0.01 Ml Unit SC 07/07/25 07:29 Not Given ACHS CORIE Protocol Lactulose 30 gm 06/12/25 14:00 06/14/25 05:30 Lactulose Syrup 20 Gm/30 Ml Udc PO 07/12/25 13:59 Not Given TID CORIE Protocol Linezolid 600 mg 06/14/25 21:00 Linezolid 600 Mg Tablet PO 06/21/25 20:59 BID CORIE Midodrine 5 mg 06/13/25 14:00 06/14/25 05:29 Midodrine 5 Mg Tablet PO 07/13/25 13:59 5 mg TID CORIE Administration Mirtazapine 15 mg 06/05/25 21:00 06/13/25 21:23 Mirtazapine 15 Mg Tablet PO 07/05/25 20:59 15 mg HS CORIE Administration Ondansetron HCl 4 mg 06/04/25 17:31 06/14/25 11:57 Ondansetron Inj 2 Mg/Ml Inj 2 Ml IVP 07/04/25 17:30 4 mg Q6H PRN Administration NAUSEA OR VOMITING Protocol Polyethylene Glycol 17 gm 06/12/25 14:00 06/14/25 05:30 Polyethylene Glycol 17 Gm Packet PO 07/12/25 13:59 Not Given TID CORIE Pramipexole Dihydrochloride 0.25 mg 06/12/25 21:00 06/13/25 21:23 Pramipexole 0.25 Mg Tablet PO 07/12/25 20:59 0.25 mg HS CORIE Administration Sevelamer Carbonate 800 mg 06/05/25 08:00 06/14/25 12:04 Sevelamer Carbonate 800 Mg Tablet PO 07/05/25 07:59 Not Given TIDWM CORIE Vitamin B Complex/Vit C/Folic Acid 1 tab 06/12/25 09:15 06/14/25 08:09 Vit B12/Vit C/Fa (Nephrovite) Tablet PO 07/12/25 09:14 1 tab QDAY CORIE Administration Vitamin D 1,000 iu 06/05/25 09:00 06/14/25 08:09 Cholecalciferol (Vitamin D3) 1,000 Iu Tablet PO 07/05/25 08:59 1,000 iu QDAY CORIE Administration Plan Ms. Baeza is 85 y/o female with PMH of CHF, insulin-dependent DM, CAD s/p CABG, ESRD on HD MWF, hypertension who presented to the ED from [facility] on 06/04 for progressive shortness of breath and productive cough x4 days. Admitted for AHRF and sepsis 2/2 CAP, COVID pneumonitis, influenza A and B, VRE UTI, management of acute CHF exacerbation. Getting HD MWF. #Acute hypoxic respiratory failure - improving #Community-acquired pneumonia #COVID pneumonitis #Influenza Initial sx of progressive shortness of breath, hypoxic, started on OxyMask, on BiPAP On home O2 2-3L Influenza A and B positive, COVID PCR positive Completed course Azitrhomycin 500 mg IV QD x 3 days (06/04 - 06/06), Ceftriaxone 1 g IV QD x 5 days (06/04 - 06/08), Tamiflu 30 mg QD x 5 days (06/04 - 06/08) Improved spO2 100% on 3L today, clinical improvement in patient's subjective shortness of breath. Patient reports improvement in her breathing. CT chest shows prominent vascular congestion with perihilar edema, extensive PNA of both lungs, diffusely in the left lung and RLL. Moderate right pleural effusion, loculated upper left hemithorax pleural fluid. Patient and son (MPOA) refused BAL, as she does not want to be intubated. Son consented over the phone for thoracentesis, chest tube. US guided thoracenthesis showed no tappable pocket. Repeat chest x-ray showed improvement in left lung aeration and moderate CHF. Improvement most likely secondary to BiPAP. Given objective and subjective improvement of patient's condition, patient most likely to be safe for discharge to SNF if remains stable on 3L of oxygen. P ending insurance authorization for return to [facility] Plan: - Continue home dose lasix 20 mg PO daily - Albuterol inhaler q4h PRN - Budesonide inh BID - Duoneb q6h, guaifenasin q6h corie - Chest physiotherapy daily - Incentive spirometer - supplemental O2 PRN #VRE UTI Hx of recurrent UTIs (3 within the past year) Denies burning with urination, increased urgency Plan: - Transitioned IV to PO Linezolid 600 mg BID (will receive 3 more doses) (06/09- 06/15) #Sepsis - resolved Temp > 100.4 (Tmax 101.3), HR > 90 (max 93), RR > 20 (max 35) + suspected source of infection (PNA, UTI) Fluids NOT given as pt appeared to be fluid overloaded (IVC non-collapsible, elevated BNP, and imaging findings of vascular congestion and perihilar edema), has ESRD and missed HD 06/04 Continues to be afebrile, no leukocytosis Blood cx NGTD at 48h Plan: - CTM vitals - Tylenol PRN for fever #Acute CHF exacerbation Decreased amount of crackles on auscultation since initial exam. Dry oral mucosa, no lower extremity edema. BNP >3280 Vascular congestion and preihilar edema seen on CXR Repeat CXR on 06/13 shows moderate CHF Plan: - Continue Lasix 20 mg PO daily - Pending TTE - Strict I&Os (patient makes urine, has pure wick to measure urine output) - Daily weights - Replete electrolytes (keep Mg >2, K >4) #ESRD on HD MWF Missed dialysis 06/04 On admit: BUN 42, Cr 4 Advisory Internship: Dr. Dumont Left arm swelling (site of fistula for HD), warmth 06/07 overnight. US LUE showed no DVT. Plan: - Hemodialysis per Dr. Dumont. Hemodialysis today at 1300 - Continued home Sevelamer 80 mg TID w/ meals - Continue Lasix 20 mg PO daily - Avoid nephrotoxic agents - Renally dose meds #CAD s/p CABG Denies chest pain/pressure Lipid panel WNL Plan: - Continue home ASA 81 mg daily, atorvastatin 20 mg QHS #Troponinemia - downtrending Denies chest pain/pressure Trop 0.293 --> 0.241 Most likely 2/2 demand ischemia i/s/o sepsis Plan: - CTM for s/sx of cardiac injury, but no need to trend troponins as they are now downtrending #Hepatits B core IgM Ab positive Denies abdominal sx, not jaundiced, no AMS Hepatitis B antigen nonreactive, Hepatitis B Ab (immune) nonreactive, Hepatitis B core IgM Ab reactive AST 41, ALT WNL, alk phos WNL, total bili WNL. PT 12.5, INR and PTT WNL Window period, recent hep B infection Plan: - Repeat Hepatitis B panel in several weeks to confirm trend. - CTM symptoms, LFTs #Insulin-dependent DM Initial BG 143 A1C 6.9 Plan: - SSI #Macrocytic anemia On admit: Hgb 10.6, HCT 34.4, MCV 109. No anemia present on previous CBC 04/20/24 Hgb stable B12 1306 high, folate WNL, reticulocyte count WNL, TSH WNL Most likely secondary to ESRD on HD Plan: - CTM with daily CBC #Hyperkalemia Plan: - Hemodialysis as above - CTM with CMP #Constipation -resolved Continues to have bowel movements daily. Abdominal pain improved. Plan: - Docusate daily corie, Miralax daily corie, Lactulose 20 g TID #Nausea Plan: - Zofran 4 mg q6h PRN #Restless leg syndrome Plan: - Held home pramipexole i/s/o CHF / fluid overload Dispo: PNA and CHF tx, HD Diet: Cardiac Bowel Reg: Docusate QD corie, Miralax daily corie, Lactulose 20 g TID VTE ppx: Heparin 5000U subQ BID GI ppx: none Code status: DNR/DNI Plan discussed with Dr. Winter and Dr. Coco Zhou MD PGY1 Attending Provider Attestation/Addendum Kim, Leonie Sepulveda DO, attest that I was physically present for the oliva portions of the service and evaluated the patient with the resident and I reviewed and discussed the case with the resident and agree with the resident's findings and plans of care as documented above Patient evaluated in room. She states that she is feeling much better today from respiratory standpoint. However, patient immediately was not after receiving IV antibiotics. Patient has 1 more day of antibiotics with a concern. Will give Zofran and monitor p.o. intake. Patient remains on 2 L at bedtime At this time. If nausea improves and patient remains on 2 L, anticipate discharge within the next 24 to 48 hours.
[2025-06-14] MEDS: INSULIN LISPRO (AdmeLOG) 1 UNIT/0.01 ML UNIT SC (12:53)
[2025-06-14] MEDS: POLYETHYLENE GLYCOL 17 GM PACKET PO (14:03)
[2025-06-14] MEDS: LACTULOSE SYRUP 20 GM/30 ML UDC 30 GM PO (14:03)
[2025-06-14] MEDS: DEXTROSE 50%-WATER INJ 50 ML SYRINGE 25 ML IV (17:11)
[2025-06-14] MEDS: LINEZOLID 600 MG TABLET PO (21:44)
[2025-06-14] MEDS: MIRTAZAPINE 15 MG TABLET PO (21:44)
[2025-06-14] MEDS: ATORVASTATIN CALCIUM 20 MG TABLET PO (21:44)
[2025-06-14] MEDS: PRAMIPEXOLE 0.25 MG TABLET PO (21:44)
[2025-06-15] VITALS (14 sets, daily range): BP systolic 111–142; BP diastolic 46–80; PULSE 85–99; RESP 17–27; TEMP 36.3–36.6; O2SAT 90–100
[2025-06-15] MEDS: ALBUTEROL/IPRATROPIUM (Duoneb) RT SOL 3 ML NEBU INH ×4 (01:29→18:14)
[2025-06-15] MEDS: LACTULOSE SYRUP 20 GM/30 ML UDC 30 GM PO (06:07)
[2025-06-15] MEDS: POLYETHYLENE GLYCOL 17 GM PACKET PO (06:07)
[2025-06-15] MEDS: BUDESONIDE RT 0.25 MG/2 ML NEBU INH ×2 (06:14→18:14)
[2025-06-15 06:39] LABS: Basophils # (Auto) 0.1 Thou/mm3 (0.0-0.2); Basophils % (Auto) 1 % (0-2.5); Eosinophils # (Auto) 0.2 Thou/mm3 (0.0-0.5); Eosinophils % (Auto) 2 % (0-10); Hematocrit 32.7 % (36.0-46.0); Hemoglobin 9.9 g/dL (12.0-16.0); Immature Granulocytes Auto 0.02 Thou/mm3 (0.00-0.00); Lymphocytes # (Auto) 1.0 Thou/mm3 (1.0-4.8); Lymphocytes % (Auto) 16 % (10-50); Mean Corpuscular HGB Conc 30.3 g/dl (31.0-37.0); Mean Corpuscular Hemoglobin 32.6 pg (25.0-35.0); Mean Corpuscular Volume 108 fL (80-100); Monocytes # (Auto) 0.6 Thou/mm3 (0.0-0.8); Monocytes % (Auto) 9 % (0-12); Neutrophils # (Auto) 4.7 Thou/mm3 (1.8-7.7); Neutrophils % (Auto) 72 % (37-80); Nucleated Red Blood Cell # 0.00 Thou/mm3 (0.00-0.00); Nucleated Red Blood Cell % 0 /100 WBC (0); Platelet Count 155 Thou/mm3 (140-440); RDW Standard Deviation 64.0 fL (36.4-46.3); Red Blood Count 3.04 Miln/mm3 (4.00-5.20); White Blood Count 6.6 Thou/mm3 (3.6-11.0)
[2025-06-15 07:37] LABS: Alanine Aminotransferase 12 U/L (10-49); Albumin, Serum 3.9 gm/dL (3.4-4.8); Albumin/Globulin Ratio 2.0 (1.2-2.2); Alkaline Phosphatase 90 U/L (46-116); Anion Gap 10 (7-16); Aspartate Amino Transferase 25 U/L (0-34); BUN/Creatinine Ratio 8 Ratio (12-20); Bilirubin,Total 0.5 mg/dL (0.3-1.2); Blood Urea Nitrogen 26 mg/dL (9-23); Calcium 10.4 mg/dL (8.3-10.6); Calcium (Corrected) 10.5 mg/dL (8.5-10.1); Carbon Dioxide 27.6 mMol/L (20.0-31.0); Chloride 97 mMol/L (98-107); Creatinine (Component) 3.1 mg/dL (0.6-1.3); Estimated Creatinine Clearance 9.2 mL/min (>60); Globulin 2.0 gm/dL (2.3-3.5); Glucose 94 mg/dL (74-106); Magnesium 1.9 mg/dL (1.6-2.6); Osmolality,Calculated 274 (275-295); Phosphorous 3.3 mg/dL (2.4-5.1); Potassium 4.8 mMol/L (3.4-5.1); Sodium 135 mMol/L (136-145); Total Protein 5.9 gm/dL (5.7-8.2); eGFR 14 See Note
[2025-06-15] MEDS: ALBUTEROL INH 8 GM 2 PUFF INH (09:03)
[2025-06-15] MEDS: HEPARIN SOD INJ 5000 UNIT/ML VIAL SC ×2 (09:38→22:26)
[2025-06-15] MEDS: CHOLECALCIFEROL (Vitamin D3) 1,000 IU TABLET 1000 IU PO (09:39)
[2025-06-15] MEDS: ASPIRIN EC 81 MG TABEC PO (09:39)
[2025-06-15] MEDS: DOCUSATE SOD 100 MG CAPSULE PO (09:40)
[2025-06-15] MEDS: LINEZOLID 600 MG TABLET PO ×2 (09:40→22:14)
[2025-06-15] MEDS: VIT B12/Vit C/FA (Nephrovite) TABLET 1 TAB PO (09:40)
--- NOTE | 2025-06-15 11:43 | PC.SS ---
Academic Registrar (IDALMIS) Donya contacted Admission Coordinator, Johanne, for [facility]. Per Johanne, patient can return as long as she has an insurance authorization from [facility]. IDALMIS contacted [facility] with no success. IDALMIS will notify next high school social science teacher to contact [facility] for insurance authorization.
--- NOTE | 2025-06-15 12:13 | ESDS_ITS ---
<Statement entered by Leonie Sepulveda DO - 06/16/25 08:42> I, Leonie Sepulveda DO, attest that I was physically present for the oliva portions of the service and evaluated the patient with the resident and I reviewed and discussed the case with the resident and agree with the resident's findings and plans of care as documented above <Statement entered by Suraj Bergman MD - 06/15/25 13:02> Patient was examined and case was reviewed with team including attending physician. Note reviewed, I agree with most of its contents and agree with the patient's care as documented by Skyler Bergman MD PGY-2 Planned Discharge Date 06/15/25 DS: Providers Provider Date of admission: 06/04/25 17:31 Primary care physician: Physician Wanda Primary/Family Admitting Provider: Indio Becerril MD Attending Provider on Admission: Leonie Sepulveda DO Consults: 06/04/25 20:09 Consult to Nephrology Stat Comment: Consulting Provider: Jac Dumont 06/05/25 00:17 Referral Infection Control Routine Comment: Instructions: Flu A&B + / rule out Covid Reason for Infection Control Referral: Patient In Isolation 06/09/25 09:39 Referral Physical Therapy Stat Comment: Physician Instructions: Attending Provider on DC: Leonie Sepulveda DO Discharging Provider: Talha Bruno DS: Diagnosis Problem List Completed Was Problem List Reviewed/Reconciled?: Yes Hospital Course Hospital Course Hospital course: Ms. Baeza is 85 y/o female with PMH of CHF, insulin-dependent DM, CAD s/p CABG, ESRD on HD MWF, hypertension who presented to the ED from [facility] on 06/04 for progressive shortness of breath and productive cough x4 days. Admitted for AHRF and sepsis 2/2 CAP, COVID pneumonitis, influenza A and B, Vancomycin resistant Enterococcal UTI, management of acute CHF exacerbation. Pt was started with BiPAP, Duoneb, and azithromycin while in the ED due to pt's acute hypoxemic respiratory failure. Pt's respiratory panel was positive for COVID-19 and Influenza A+B likely leading to her AHRF and was given Duoneb and Pulmicort to increase respiratory stability. Pt was also found to have Community Acquired Pneumonia and was given Azitrhromycin 500 mg IV QD x 3 days (06/04 - 06/06), Ceftriaxone 1 g IV QD x 5 days (06/04 - 06/08), Tamiflu 30 mg QD x 5 days (06/04 - 06/08). Pt also was previously diagnosed with ESRD on Hemodialysis. Nephrology was consulted and recommended continuation of Hemodialysis, continued home Sevelamer 80 mg TID, and Lasix 20 mg PO daily. Pt was found to have VRE UTI for which Linezolid was given. Pt is medically stable at time of discharge #Acute hypoxic respiratory failure - improving #Community-acquired pneumonia #COVID pneumonitis #Influenza #VRE UTI #Sepsis - resolved #Acute CHF exacerbation #ESRD on HD MWF #CAD s/p CABG #Troponinemia - downtrending #Hepatits B core IgM Ab positive #Macrocytic anemia #Hyperkalemia #Constipation -resolved #Nausea #Restless leg syndrome Discharge summary was reviewed by Senior Resident Dr. Winter and attending physician Dr. Coco Ludwig (Medical Student) Time Spent with Patient Time attestation: Total time spent providing and/or coordinating discharge services: Time spent: Greater than 30 minutes Exam Vital Signs Temp Pulse Resp BP Pulse Ox O2 Del Method O2 Flow Rate 97.3 F 89 27 H 119/53 L 92 L High Flow Nasal Cannula 4 06/15/25 08:00 06/15/25 09:39 06/15/25 09:07 06/15/25 09:39 06/15/25 09:07 06/15/25 08:00 06/15/25 09:07 FiO2 40 06/15/25 08:00 Narrative Exam General: Elderly female, appears stated age, no acute distress Eye: PERRL, EOMI, normal conjunctiva, no scleral icterus HENT: Normocephalic, atraumatic, normal hearing, moist oral mucosa, difficulty with hearing Neck: Supple, non-tender, no JVD, no lymphadenopathy Lungs: spO2 100% 3L, no crackles appreciated, improved breathing, symmetric chest rise Heart: Normal S1 and S2, no S3 or S4 appreciated. Normal rate and regular rhythm, no murmurs, rubs gallops, or edema. Peripheral pulses intact bilaterally, capillary refill brisk distally. Fistula of left arm, warm, non- tender, no erythema. Abdomen: Soft, non-distendedNo guarding or rebound tenderness. Musculoskeletal: Normal range of motion and strength, no tenderness or swelling Skin: Skin is warm, dry, no rashes or lesions. Neurologic: Alert, awake and oriented x2. No focal neuro deficits. Psychiatric: Cooperative, appropriate mood and affect Discharge Plan Plan Patient Disposition: Xfer Skilled Nsg Fac (SNF) Patient condition on transfer: Stable Care Plan Goals: Follow up with primary care physician within 1 week of discharge. Continue your medications as prescribed Should your symptoms recur or worsen patient is instructed to return to the ED. Prescriptions/Referrals Prescriptions/Med Rec: Continued benzonatate 100 mg capsule 100 mg PO TID PRN (Reason: cough) Qty: 10 0RF aspirin 81 mg capsule 81 mg PO QDAY atorvastatin 20 mg tablet 20 mg PO HS cholecalciferol (vitamin D3) 25 mcg (1,000 unit) capsule 1,000 unit PO QDAY acetaminophen [Tylenol] 325 mg tablet 650 mg PO Q6H PRN (Reason: pain (scale score 4-6)) albuterol sulfate 2.5 mg /3 mL (0.083 %) solution for nebulization 2.5 mg inhalation Q6H PRN (Reason: shortness of breath or wheezing) bisacodyl [Dulcolax (bisacodyl)] 10 mg suppository 10 mg CA QDAY PRN (Reason: constipation) Rx Instructions: if MOM ineffective sodium phosphates 19-7 gram/118 mL enema 118 ml CA Q72H PRN (Reason: constipation) Rx Instructions: if Dulcolax ineffective furosemide 20 mg tablet 20 mg PO DAILY Patient Comments: take 1 tablet by mouth once daily if needed polyethylene glycol 3350 [Miralax] 17 gram powder in packet 17 g PO QDAY Rx Instructions: hold for loose stools magnesium hydroxide [Milk of Magnesia] 400 mg/5 mL suspension 30 ml PO Q72H PRN (Reason: constipation) Rx Instructions: If no BM in 3 days midodrine 5 mg tablet 5 mg PO TID Rx Instructions: Hold for BP > 120 mirtazapine [Remeron] 15 mg tablet 15 mg PO HS pramipexole 0.25 mg tablet 0.25 mg PO HS B complex-vitamin C-folic acid 0.8 mg tablet 1 tab PO QDAY sevelamer carbonate 800 mg tablet 800 mg PO TIDWMEAL Patient Comments: take 1 tablet by mouth once daily diphenhydramine-acetaminophen [Pain and Sleep] 25-500 mg tablet 1 tab PO HS PRN (Reason: insomnia) Discontinued doxycycline monohydrate 100 mg capsule 100 mg PO BID Qty: 10 0RF Referrals: No Primary/Family,Physician [Primary Care Provider] - Patient/Caregiver Discharge Instructions Education Materials: Thoracentesis Dc Print Language: Peruvian Stand Alone Forms: Agnieszka Award Info., Patient Portal Info Letter Discharge Order Discharge Orders: Discharge (Routine); Ordered 06/15/25 Ordered By: Suraj Bergman Quality Discharge Quality Measures none
[2025-06-15] MEDS: MIDODRINE 5 MG TABLET PO (14:34)
[2025-06-15] MEDS: ATORVASTATIN CALCIUM 20 MG TABLET PO (22:14)
[2025-06-15] MEDS: PRAMIPEXOLE 0.25 MG TABLET PO (22:14)
[2025-06-15] MEDS: MIRTAZAPINE 15 MG TABLET PO (22:14)
[2025-06-16] VITALS (29 sets, daily range): BP systolic 100–132; BP diastolic 47–65; PULSE 80–99; RESP 17–30; TEMP 35.8–36.6; O2SAT 93–100
[2025-06-16] MEDS: ALBUTEROL/IPRATROPIUM (Duoneb) RT SOL 3 ML NEBU INH ×3 (01:14→18:20)
[2025-06-16 06:36] LABS: Basophils # (Auto) 0.0 Thou/mm3 (0.0-0.2); Basophils % (Auto) 1 % (0-2.5); Eosinophils # (Auto) 0.1 Thou/mm3 (0.0-0.5); Eosinophils % (Auto) 2 % (0-10); Hematocrit 30.8 % (36.0-46.0); Hemoglobin 9.6 g/dL (12.0-16.0); Immature Granulocytes Auto 0.02 Thou/mm3 (0.00-0.00); Lymphocytes # (Auto) 1.0 Thou/mm3 (1.0-4.8); Lymphocytes % (Auto) 14 % (10-50); Mean Corpuscular HGB Conc 31.2 g/dl (31.0-37.0); Mean Corpuscular Hemoglobin 33.9 pg (25.0-35.0); Mean Corpuscular Volume 109 fL (80-100); Monocytes # (Auto) 0.7 Thou/mm3 (0.0-0.8); Monocytes % (Auto) 10 % (0-12); Neutrophils # (Auto) 5.1 Thou/mm3 (1.8-7.7); Neutrophils % (Auto) 74 % (37-80); Nucleated Red Blood Cell # 0.00 Thou/mm3 (0.00-0.00); Nucleated Red Blood Cell % 0 /100 WBC (0); Platelet Count 136 Thou/mm3 (140-440); RDW Standard Deviation 65.6 fL (36.4-46.3); Red Blood Count 2.83 Miln/mm3 (4.00-5.20); White Blood Count 7.0 Thou/mm3 (3.6-11.0)
[2025-06-16] MEDS: BUDESONIDE RT 0.25 MG/2 ML NEBU INH ×2 (07:08→18:20)
[2025-06-16 07:11] LABS: Alanine Aminotransferase 11 U/L (10-49); Albumin, Serum 3.8 gm/dL (3.4-4.8); Albumin/Globulin Ratio 1.9 (1.2-2.2); Alkaline Phosphatase 87 U/L (46-116); Anion Gap 12 (7-16); Aspartate Amino Transferase 20 U/L (0-34); BUN/Creatinine Ratio 11 Ratio (12-20); Bilirubin,Total 0.4 mg/dL (0.3-1.2); Blood Urea Nitrogen 42 mg/dL (9-23); Calcium 10.6 mg/dL (8.3-10.6); Calcium (Corrected) 10.8 mg/dL (8.5-10.1); Carbon Dioxide 25.7 mMol/L (20.0-31.0); Chloride 97 mMol/L (98-107); Creatinine (Component) 3.9 mg/dL (0.6-1.3); Estimated Creatinine Clearance 7.3 mL/min (>60); Globulin 2.0 gm/dL (2.3-3.5); Glucose 110 mg/dL (74-106); Magnesium 2.1 mg/dL (1.6-2.6); Osmolality,Calculated 281 (275-295); Phosphorous 4.0 mg/dL (2.4-5.1); Potassium 5.6 mMol/L (3.4-5.1); Sodium 135 mMol/L (136-145); Total Protein 5.8 gm/dL (5.7-8.2); eGFR 11 See Note
--- NOTE | 2025-06-16 07:30 | ESPR_ITS ---
<Statement entered by Suraj Bergman MD - 06/16/25 16:53> Patient was examined and case was reviewed with team including attending physician. Note reviewed, I agree with most of its contents and agree with the patient's care as documented by MS Skyler Ludwig Patient seen evaluated the bedside. Vitals and labs reviewed. Patient currently on baseline oxygen on auscultation patient is able to move air more comfortably. Patient already completed IV antibiotic therapy as well as influenza treatment. Patient pending to be discharged since 2 days ago however pending SNF authorization at this time. Likely discharge in the next 24-48 hours. Case discussed with my attending Dr. Coco Bergman MD PGY-2 Disclaimer: Despite multiple revisions, due to the dictation software being used, the document bellow may not be free of grammatical errors including phonetic/typographic errors. However, this does not deter from our commitment to providing health care in the patient's best interest in mind. Documentation for date of: 06/16/25 Subjective Subjective Interval history: pt was seen at bedside today. pt is alert and oriented x2. pt was medically cleared for discharge on 06/15 but remains here until social work can finalize her discharge. pt does not have any questions or concerns at this time. Exam Vital Signs Temp Pulse Resp BP Pulse Ox O2 Del Method O2 Flow Rate 97.0 F 88 18 127/54 L 99 Nasal Cannula 2 06/16/25 03:39 06/16/25 07:09 06/16/25 07:09 06/16/25 05:59 06/16/25 07:09 06/16/25 03:39 06/16/25 07:09 FiO2 40 06/15/25 08:00 Narrative Exam General: Elderly female, appears stated age, no acute distress Eye: PERRL, EOMI, normal conjunctiva, no scleral icterus HENT: Normocephalic, atraumatic, normal hearing, moist oral mucosa, difficulty with hearing Neck: Supple, non-tender, no JVD, no lymphadenopathy Lungs: spO2 100% 3L, no crackles appreciated, improved breathing, symmetric chest rise Heart: Normal S1 and S2, no S3 or S4 appreciated. Normal rate and regular rhythm, no murmurs, rubs gallops, or edema. Peripheral pulses intact bilaterally, capillary refill brisk distally. Fistula of left arm, warm, non- tender, no erythema. Abdomen: Soft, non-distendedNo guarding or rebound tenderness. Musculoskeletal: Normal range of motion and strength, no tenderness or swelling Skin: Skin is warm, dry, no rashes or lesions. Neurologic: Alert, awake and oriented x2. No focal neuro deficits. Psychiatric: Cooperative, appropriate mood and affect Objective Labs 06/16/25 06:15 06/16/25 06:15 Labs: Laboratory Results - last 24 hr 06/15/25 06/16/25 06:24 06:15 WBC 7.0 RBC 2.83 L Hgb 9.6 L Hct 30.8 L MCV 109 H MCH 33.9 MCHC 31.2 RDW Std Deviation 65.6 H Plt Count 136 L Neut % (Auto) 74 Lymph % (Auto) 14 [place] % (Auto) 10 Eos % (Auto) 2 Baso % (Auto) 1 Neut # (Auto) 5.1 Lymph # (Auto) 1.0 [place] # (Auto) 0.7 Eos # (Auto) 0.1 Baso # (Auto) 0.0 Immature Gran # (Auto) 0.02 H Absolute Nucleated RBC 0.00 Immature Gran % 0 Nucleated RBC % 0 Sodium 135 L 135 L Potassium 4.8 D 5.6 H D Chloride 97 L 97 L Carbon Dioxide 27.6 25.7 Anion Gap 10 12 BUN 26 H 42 H Creatinine 3.1 H D 3.9 H D Estim Creat Clear Calc 9.2 L 7.3 L eGFR 14 L* 11 L* BUN/Creatinine Ratio 8 L 11 L Glucose 94 110 H Calculated Osmolality 274 L 281 Calcium 10.4 10.6 Corrected Calcium 10.5 H 10.8 H Phosphorus 3.3 4.0 Magnesium 1.9 2.1 Total Bilirubin 0.5 0.4 AST 25 20 ALT 12 11 Alkaline Phosphatase 90 87 Total Protein 5.9 5.8 Albumin 3.9 3.8 Globulin 2.0 L 2.0 L Albumin/Globulin Ratio 2.0 1.9 ABG Interpretation ABG results: 06/04/25 15:40 ABG pH 7.38 ABG pCO2 52 H ABG pO2 148 H ABG HCO3 31 H ABG O2 Saturation 100 H ABG Base Excess 5 H Quality Measures Quality Measures none Advance care planning discussed with:: patient Assessment & Plan Assessment Current Active Medications: Generic Name Dose Route Start Last Admin Trade Name Freq PRN Reason Stop Dose Admin Acetaminophen 650 mg 06/04/25 17:31 Acetaminophen 325 Mg Tablet PO 07/04/25 17:30 Q6H PRN Fever >101.5 Acetaminophen 650 mg 06/04/25 17:31 Acetaminophen 325 Mg Tablet PO 07/04/25 17:30 Q6H PRN PAIN SCALE 1-3 (mild Albuterol 2 puff 06/08/25 10:03 06/15/25 09:03 Albuterol Inh 8 Gm INH 07/08/25 10:02 2 puff Q4HR PRN Administration SHORTNESS OF BREATH OR WHEEZE Albuterol/Ipratropium 3 ml 06/13/25 19:00 06/16/25 07:08 Albuterol/Ipratropium (Duoneb) Rt [place] 3 Ml Nebu INH 07/13/25 18:59 3 ml Q6HRRT CORIE Administration Aspirin 81 mg 06/04/25 21:00 06/15/25 09:39 Aspirin Ec 81 Mg Tabec PO 07/04/25 20:59 81 mg QDAY CORIE Administration Atorvastatin Calcium 20 mg 06/05/25 21:00 06/15/25 22:14 Atorvastatin Calcium 20 Mg Tablet PO 07/05/25 20:59 20 mg HS CORIE Administration Budesonide 0.25 mg 06/11/25 19:00 06/16/25 07:08 Budesonide Rt 0.25 Mg/2 Ml Nebu INH 07/11/25 18:59 0.25 mg BIDRT CORIE Administration Dextrose 25 ml 06/04/25 19:37 06/14/25 17:11 Dextrose 50%-Water Inj 50 Ml Syringe IV 07/04/25 19:36 25 ml Q15MIN PRN Administration BG 50-70 responsive npo pt Dextrose 50 ml 06/04/25 19:37 Dextrose 50%-Water Inj 50 Ml Syringe IV 07/04/25 19:36 Q15MIN PRN BG <50 OR BG <70 & pt unresponsive Docusate Sodium 100 mg 06/10/25 09:45 06/15/25 09:40 Docusate Sod 100 Mg Capsule PO 07/10/25 09:44 100 mg QDAY CORIE Administration Protocol Furosemide 20 mg 06/13/25 10:00 06/15/25 09:39 Furosemide 20 Mg Tablet PO 07/13/25 09:59 20 mg QDAY CORIE Administration Glucagon 1 mg 06/04/25 19:37 Glucagon Inj 1 Mg Vial IM Q15MIN PRN BG <70, and no IV access Guaifenesin 600 mg 06/13/25 12:00 06/16/25 06:00 Guaifenesin Er 600 Mg Tabcr PO 07/13/25 11:59 600 mg Q6HR CORIE Administration Heparin Sodium (Porcine) 5,000 unit 06/04/25 17:45 06/15/25 22:26 Heparin Sod Inj 5000 Unit/Ml Vial SC 06/18/25 17:44 5,000 unit Q12HR CORIE Administration Heparin Sodium (Porcine) 3,700 unit 06/05/25 16:35 06/13/25 18:44 Heparin Sod Inj 1000 Unit/Ml Vial 10 Ml INDWELLCAT 06/19/25 16:34 3,700 unit X1 PRN Administration DIALYSIS Albumin Human 25 gm in 100 mls @ 100 mls/min 06/09/25 07:13 06/13/25 16:04 Albuminar-25 Ivpb IV 100 mls/min PRN PRN Administration DIALYSIS Insulin Human Lispro 0 unit 06/07/25 07:30 06/15/25 22:12 Insulin Lispro (Admelog) 1 Unit/0.01 Ml Unit SC 07/07/25 07:29 Not Given ACHS [facility] Protocol Lactulose 30 gm 06/12/25 14:00 06/16/25 05:58 Lactulose Syrup 20 Gm/30 Ml Udc PO 07/12/25 13:59 Not Given TID CORIE Protocol Linezolid 600 mg 06/14/25 21:00 06/15/25 22:14 Linezolid 600 Mg Tablet PO 06/21/25 20:59 600 mg BID CORIE Administration Midodrine 5 mg 06/13/25 14:00 06/16/25 05:59 Midodrine 5 Mg Tablet PO 07/13/25 13:59 Not Given TID CORIE Mirtazapine 15 mg 06/14/25 21:00 06/15/25 22:14 Mirtazapine 15 Mg Tablet PO 07/14/25 20:59 15 mg HS CORIE Administration Ondansetron HCl 4 mg 06/04/25 17:31 06/14/25 11:57 Ondansetron Inj 2 Mg/Ml Inj 2 Ml IVP 07/04/25 17:30 4 mg Q6H PRN Administration NAUSEA OR VOMITING Protocol Polyethylene Glycol 17 gm 06/12/25 14:00 06/16/25 05:58 Polyethylene Glycol 17 Gm Packet PO 07/12/25 13:59 Not Given TID CORIE Pramipexole Dihydrochloride 0.25 mg 06/12/25 21:00 06/15/25 22:14 Pramipexole 0.25 Mg Tablet PO 07/12/25 20:59 0.25 mg HS CORIE Administration Sevelamer Carbonate 800 mg 06/05/25 08:00 06/15/25 17:13 Sevelamer Carbonate 800 Mg Tablet PO 07/05/25 07:59 Not Given TIDWM CORIE Vitamin B Complex/Vit C/Folic Acid 1 tab 06/12/25 09:15 06/15/25 09:40 Vit B12/Vit C/Fa (Nephrovite) Tablet PO 07/12/25 09:14 1 tab QDAY CORIE Administration Vitamin D 1,000 iu 06/05/25 09:00 06/15/25 09:39 Cholecalciferol (Vitamin D3) 1,000 Iu Tablet PO 07/05/25 08:59 1,000 iu QDAY CORIE Administration Plan Ms. Baeza is 85 y/o female with PMH of CHF, insulin-dependent DM, CAD s/p CABG, ESRD on HD MWF, hypertension who presented to the ED from [facility] on 06/04 for progressive shortness of breath and productive cough x4 days. Admitted for AHRF and sepsis 2/2 CAP, COVID pneumonitis, influenza A and B, VRE UTI, management of acute CHF exacerbation. Getting HD MWF. #Acute hypoxic respiratory failure - improving #Community-acquired pneumonia #COVID pneumonitis #Influenza Initial sx of progressive shortness of breath, hypoxic, started on OxyMask, on BiPAP On home O2 2-3L Influenza A and B positive, COVID PCR positive Completed course Azitrhomycin 500 mg IV QD x 3 days (06/04 - 06/06), Ceftriaxone 1 g IV QD x 5 days (06/04 - 06/08), Tamiflu 30 mg QD x 5 days (06/04 - 06/08) Improved spO2 100% on 3L today, clinical improvement in patient's subjective shortness of breath. Patient reports improvement in her breathing. CT chest shows prominent vascular congestion with perihilar edema, extensive PNA of both lungs, diffusely in the left lung and RLL. Moderate right pleural effusion, loculated upper left hemithorax pleural fluid. Patient and son (HIMA) refused BAL, as she does not want to be intubated. Son consented over the phone for thoracentesis, chest tube. US guided thoracenthesis showed no tappable pocket. Repeat chest x-ray showed improvement in left lung aeration and moderate CHF. Improvement most likely secondary to BiPAP. Given objective and subjective improvement of patient's condition, patient most likely to be safe for discharge to SNF if remains stable on 3L of oxygen. P ending insurance authorization for return to [facility] Plan: - Continue home dose lasix 20 mg PO daily - Albuterol inhaler q4h PRN - Budesonide inh BID - Duoneb q6h, guaifenasin q6h corie - Chest physiotherapy daily - Incentive spirometer - supplemental O2 PRN #VRE UTI Hx of recurrent UTIs (3 within the past year) Denies burning with urination, increased urgency Plan: - Transitioned IV to PO Linezolid 600 mg BID (will receive 3 more doses) (06/09- 06/15) #Sepsis - resolved Temp > 100.4 (Tmax 101.3), HR > 90 (max 93), RR > 20 (max 35) + suspected source of infection (PNA, UTI) Fluids NOT given as pt appeared to be fluid overloaded (IVC non-collapsible, elevated BNP, and imaging findings of vascular congestion and perihilar edema), has ESRD and missed HD 06/04 Continues to be afebrile, no leukocytosis Blood cx NGTD at 48h Plan: - CTM vitals - Tylenol PRN for fever #Acute CHF exacerbation Decreased amount of crackles on auscultation since initial exam. Dry oral mucosa, no lower extremity edema. BNP >3280 Vascular congestion and preihilar edema seen on CXR Repeat CXR on 06/13 shows moderate CHF Plan: - Continue Lasix 20 mg PO daily - Pending TTE - Strict I&Os (patient makes urine, has pure wick to measure urine output) - Daily weights - Replete electrolytes (keep Mg >2, K >4) #ESRD on HD MWF Missed dialysis 06/04 On admit: BUN 42, Cr 4 [employer] Compensation Hearings Officer: Dr. Dumont Left arm swelling (site of fistula for HD), warmth 06/07 overnight. US LUE showed no DVT. Plan: - Hemodialysis per Dr. Dumont. Hemodialysis today at 1300 - Continued home Sevelamer 80 mg TID w/ meals - Continue Lasix 20 mg PO daily - Avoid nephrotoxic agents - Renally dose meds #CAD s/p CABG Denies chest pain/pressure Lipid panel WNL Plan: - Continue home ASA 81 mg daily, atorvastatin 20 mg QHS #Troponinemia - downtrending Denies chest pain/pressure Trop 0.293 --> 0.241 Most likely 2/2 demand ischemia i/s/o sepsis Plan: - CTM for s/sx of cardiac injury, but no need to trend troponins as they are now downtrending #Hepatits B core IgM Ab positive Denies abdominal sx, not jaundiced, no AMS Hepatitis B antigen nonreactive, Hepatitis B Ab (immune) nonreactive, Hepatitis B core IgM Ab reactive AST 41, ALT WNL, alk phos WNL, total bili WNL. PT 12.5, INR and PTT WNL Window period, recent hep B infection Plan: - Repeat Hepatitis B panel in several weeks to confirm trend. - CTM symptoms, LFTs #Insulin-dependent DM Initial BG 143 A1C 6.9 Plan: - SSI #Macrocytic anemia On admit: Hgb 10.6, HCT 34.4, MCV 109. No anemia present on previous CBC 04/20/24 Hgb stable B12 1306 high, folate WNL, reticulocyte count WNL, TSH WNL Most likely secondary to ESRD on HD Plan: - CTM with daily CBC #Hyperkalemia Plan: - Hemodialysis as above - CTM with CMP #Constipation -resolved Continues to have bowel movements daily. Abdominal pain improved. Plan: - Docusate daily corie, Miralax daily corie, Lactulose 20 g TID #Nausea Plan: - Zofran 4 mg q6h PRN #Restless leg syndrome Plan: - Held home pramipexole i/s/o CHF / fluid overload Dispo: PNA and CHF tx, HD Diet: Cardiac Bowel Reg: Docusate QD corie, Miralax daily corie, Lactulose 20 g TID VTE ppx: Heparin 5000U subQ BID GI ppx: none Code status: DNR/DNI Plan discussed with Dr. Winter and Dr. Coco Ludwig (Medical Student) Attending Provider Attestation/Addendum Leonie Alvarez DO, attest that I was physically present for the oliva portions of the service and evaluated the patient with the resident and I reviewed and discussed the case with the resident and agree with the resident's findings and plans of care as documented above Patient seen and evaluated this AM. She states she is doing well, but complains of occasional coughing spells. Patient denies any nausea. She is able to speak full sentences and remains on 1L/NC. She is pending authorization to SNF. She is otherwise stable for dsicharge
[2025-06-16] MEDS: HEPARIN SOD INJ 1000 UNIT/ML VIAL 10 ML 3700 UNIT INDWELLCAT (11:10)
[2025-06-16] MEDS: LINEZOLID 600 MG TABLET PO (12:22)
[2025-06-16] MEDS: VIT B12/Vit C/FA (Nephrovite) TABLET 1 TAB PO (12:22)
[2025-06-16] MEDS: CHOLECALCIFEROL (Vitamin D3) 1,000 IU TABLET 1000 IU PO (12:23)
[2025-06-16] MEDS: ASPIRIN EC 81 MG TABEC PO (12:23)
[2025-06-16] MEDS: HEPARIN SOD INJ 5000 UNIT/ML VIAL SC (12:23)
--- NOTE | 2025-06-16 12:42 | PC.SS ---
LUMBER PULLER confirmed with patient and patient's son plan for patient to return to [facility] at the time of discharge. LUMBER PULLER contacted [facility] who confirmed that facility can accept patient back to SNF. LUMBER PULLER left voicemail with [facility] staff requesting initiation of authorization for placement.
--- NOTE | 2025-06-16 14:38 | PC.SS ---
PASSR closed on line. PASSR submitted to [address] via [email or web address] [facility] exchange file.
--- NOTE | 2025-06-16 15:16 | PC.NURSE ---
Patient oxygen saturation drops to between 70-80% while sleeping. Patient was put on 1L of oxygen via nasal cannula. Dr. Janak kennedy.
--- NOTE | 2025-06-16 16:07 | PC.SS ---
PIPE LINER confirmed with [facility] that authorization has been obtained. PIPE LINER to schedule transportation.
--- NOTE | 2025-06-16 16:11 | PC.SS ---
Addendum entered and electronically signed by ZEINA Grover 06/16/25 17:17: Transport moved back to 06:30 pm. V[employer]ICAL [employer]ING M[employer] OPERATOR updated SNF, bedside nurse and patient's son. Original Note: Transport scheduled for 05:30 pm. [facility] to transport. V[employer]ICAL [employer]ING M[employer] OPERATOR updated patient's son, SNF and bedside nurse.
--- NOTE | 2025-06-16 17:13 | PC.NURSE ---
Spoke to staff nurse Amish at [facility], report was given. Transport time was moved to 1830.
== END 2025-06-16 18:50 | disposition skilled nursing facility (03) | DRG 177 ==
LOC: SERX 18:18 → SERHOLD 18:24 → S2NX 18:46
PROVIDERS: Internal Medicine; Student in an Organized Health Care Education/Training Program; Admitting Provider Student in an Organized Health Care Education/Training Program; Emergency Provider Emergency Medicine; Visit Provider Internal Medicine
DX: U07.1 COVID-19 (principal); J10.08 Influenza due to other identified influenza virus with other specified pneumonia; J12.82 Pneumonia due to coronavirus disease 2019; N18.6 End stage renal disease; J96.01 Acute respiratory failure with hypoxia; J15.9 Unspecified bacterial pneumonia; I13.2 Hypertensive heart and chronic kidney disease with heart failure and with stage 5 chronic kidney disease, or end stage renal disease; N39.0 Urinary tract infection, site not specified; Z16.21 Resistance to vancomycin; J91.8 Pleural effusion in other conditions classified elsewhere; I50.9 Heart failure, unspecified; Z99.2 Dependence on renal dialysis; E11.22 Type 2 diabetes mellitus with diabetic chronic kidney disease; Z95.1 Presence of aortocoronary bypass graft; I25.10 Atherosclerotic heart disease of native coronary artery without angina pectoris; J45.909 Unspecified asthma, uncomplicated; Z66 Do not resuscitate; D53.9 Nutritional anemia, unspecified; D69.6 Thrombocytopenia, unspecified; Z79.82 Long term (current) use of aspirin; G25.81 Restless legs syndrome; B95.2 Enterococcus as the cause of diseases classified elsewhere; E87.5 Hyperkalemia; E78.5 Hyperlipidemia, unspecified; I95.89 Other hypotension; K59.09 Other constipation; Z79.4 Long term (current) use of insulin; Z79.899 Other long term (current) drug therapy; Z87.440 Personal history of urinary (tract) infections; Z88.8 Allergy status to other drugs, medicaments and biological substances; Z88.2 Allergy status to sulfonamides
CPT/HCPCS: 36415; 36600; 71045; 71250; 76857; 76999; 80053; 80061; 80069; 80074; 80307; 81001; 82150; 82607; 82746; 82803; 82945; 83036; 83605; 83615; 83690; 83735; 83880; 84100; 84145; 84157; 84443; 84484; 85025; 85046; 85610; 85730; 86706; 87040; 87077; 87081; 87086; 87186; 87400; 87635; 87811; 89051; 93005; 93971; 94640; 94660; 94664; 94667; 96365; 97163; 99284; A9270; J0131; J0456; J0696; J1643; J1644; J1815; J1938; J2021; J2405; J2543; J3475; J3490; J7050; P9047